=== PATIENT | female | born 1960 | race Caucasian/White ===

== ENCOUNTER 2017-12-08 19:36 | Inpatient (IN) | payer OTHER ==
[~2017-12-08] VITALS: Ht 165.1 cm; Wt 46.0 kg
[~2017-12-08 19:36] MED LIST: ALBU90OI INH; AMIT25 PO; AMIT50 PO; AMOCLA875 PO; Bactrim Ds Tab1 EACH PO; CELE200 PO; CEPH500 PO; CITA20 PO; CLIM.025TP TOP; CYCL10 PO; DIAZ5 PO; DILT120ERA PO; Flomax0.4 MG PO; GABA300 PO; HYDACE10B; HYDACE10B PO; HYDACE5 PO; HYDR1TAB94 PO; IBUP400 PO; IBUP600 PO; IBUP800; LEVLIO1; LIDO700A20 TOP; METPRE4DP PO; NAPR500EC PO; NITR100 PO; Norco 10-325 T1 EACH PO; Norco 5-325 Ta1 EACH PO; ONDA8 PO; OXYACE5T PO; OXYB5 PO; OXYC10TA19; OXYC5 PO; PANT40 PO; PENVK250 PO; PROM25 PO; PYRIDIUM PO; Percocet 10-321 EACH PO; Percocet 5-3251 EACH PO; Prednisone20 MG PO; Pyridium200 MG PO; RXHYDACE PO; Robaxin500 MG PO; TAMS.4ER; TAMS.4ER PO; THYR60 PO; TOBDEXOPSU OS; TRAM50 PO; Ultram50 MG PO; Valium5 MG PO; Zithromax250 MG PO
[2017-12-08 20:33] LABS: BASOPHILS ABSOLUTE AUTO 0.04 K/mm3 (0.00-0.23); BASOPHILS PERCENT AUTO 0 % (0-2); EOSINOPHILS ABSOLUTE AUTO 0.03 K/mm3 (0.00-0.68); EOSINOPHILS PERCENT AUTO 0 % (0-6); Hematocrit 33.8 % (33.0-51.0); Hemoglobin 11.2 g/dL (11.5-16.0); IMMATURE GRAN PERCENT AUTO 0 % (0-1); LYMPHOCYTES ABSOLUTE AUTO 3.22 K/mm3 (0.84-5.20); LYMPHOCYTES PERCENT AUTO 13 % (21-46); MONOCYTES PERCENT AUTO 8 % (4-13); Mean Corpuscular HGB 31.7 pg (26.0-34.0); Mean Corpuscular HGB Conc 33.1 g/dL (31.5-36.5); Mean Corpuscular Volume 96 fL (80-100); Mean Platelet Volume 8.7 fL (9.1-12.4); NEUTROPHILS ABSOLUTE AUTO 18.66 K/mm3 (1.96-9.15); NEUTROPHILS PERCENT AUTO 78 % (41-73); Platelet Count 482 K/mm3 (150-400); RDW Coefficient Variation 13.2 % (11.7-14.2); Red Blood Cell Count 3.53 M/mm3 (3.80-5.20); White Blood Cell Count 24.05 K/mm3 (4.00-11.30)
[2017-12-08 20:54] LABS: Alanine Aminotransfer (ALT/SGP 17 U/L (12-78); Albumin, Blood 2.6 g/dL (3.4-5.0); Albumin/Globulin Ratio 0.5 (0.8-1.8); Alk Phos 123 U/L (50-136); Anion Gap 13 mmol/L (6-16); Aspartate Aminotrans (AST/SGOT 38 U/L (12-37); Bilirubin, Total 0.3 mg/dL (0.1-1.0); Blood Urea Nitrogen 8 mg/dL (8-24); Bun/Creatinine Ratio 16.6 (12.0-20.0); CO2, Blood 23 mmol/L (21-32); Calcium, Blood 8.7 mg/dL (8.5-10.1); Chloride, Blood 104 mmol/L (98-108); Creatinine, Blood 0.48 mg/dL (0.40-1.00); Globulin, Blood 4.9 g/dL (2.2-4.0); Glomerular Filtration Rate >60 (60-); Glucose, Blood 89 mg/dL (70-99); Sodium, Blood 140 mmol/L (136-145); Total Protein, Blood 7.5 g/dL (6.4-8.2); Troponin I <0.015 ng/mL (0.000-0.040)
[2017-12-09 01:05] LABS: Influenza A Negative (NEGATIVE); Influenza B Negative (NEGATIVE)
[2017-12-09 02:27] LABS: Bilirubin, Urine Neg (Neg); Blood, Urine 5+ (Neg); Glucose Qualitative, Urine Neg (Neg); Ketones, Urine Neg (Neg); Leukocyte Esterase, Urine Neg (Neg); Nitrite, Urine Neg (Neg); Protein, Urine Neg (Neg); Source, Urine Clean Catch; Urobilinogen, Urine NORM (Normal)
[2017-12-09 02:47] LABS: Appearance, Urine Clear (Clear); Bacteria Many /hpf; Color, Urine Yellow (P-Yellow); Red Blood Cells, Urine 0-2 /hpf (0-2); Squamous Epithelial Cells Mod /hpf (Few)
[2017-12-09 02:50] LABS: U Amphetamine Screen Not Detected; U Barbituate Screen Not Detected; U Benzodiazapine Screen Not Detected; U Buprenorphine Screen Not Detected; U Cannabinoids Screen Not Detected; U Cocaine Screen Not Detected; U Methadone Screen Not Detected; U Methamphetamine Screen Not Detected; U Opiates Screen Not Detected; U Oxycodone Screen Not Detected; U Phencyclidine Screen Not Detected; U Propoxyphene Screen Not Detected
[2017-12-09 09:33] LABS: BASOPHILS ABSOLUTE AUTO 0.04 K/mm3 (0.00-0.23); BASOPHILS PERCENT AUTO 0 % (0-2); EOSINOPHILS ABSOLUTE AUTO 0.01 K/mm3 (0.00-0.68); EOSINOPHILS PERCENT AUTO 0 % (0-6); Hematocrit 32.5 % (33.0-51.0); Hemoglobin 10.4 g/dL (11.5-16.0); IMMATURE GRAN ABSOLUTE AUTO 0.08 K/mm3 (0.00-0.10); IMMATURE GRAN PERCENT AUTO 0 % (0-1); LYMPHOCYTES ABSOLUTE AUTO 1.29 K/mm3 (0.84-5.20); LYMPHOCYTES PERCENT AUTO 5 % (21-46); MONOCYTES ABSOLUTE AUTO 1.43 K/mm3 (0.16-1.47); MONOCYTES PERCENT AUTO 6 % (4-13); Mean Corpuscular HGB 31.4 pg (26.0-34.0); Mean Corpuscular Volume 98 fL (80-100); Mean Platelet Volume 8.7 fL (9.1-12.4); NEUTROPHILS PERCENT AUTO 89 % (41-73); Platelet Count 419 K/mm3 (150-400); RDW Coefficient Variation 13.3 % (11.7-14.2); RDW Standard Deviation 47.3 fL (35.1-46.3); Red Blood Cell Count 3.31 M/mm3 (3.80-5.20); White Blood Cell Count 24.85 K/mm3 (4.00-11.30)
[2017-12-09 09:52] LABS: Alanine Aminotransfer (ALT/SGP 11 U/L (12-78); Albumin, Blood 2.2 g/dL (3.4-5.0); Albumin/Globulin Ratio 0.5 (0.8-1.8); Alk Phos 115 U/L (50-136); Anion Gap 13 mmol/L (6-16); Aspartate Aminotrans (AST/SGOT 30 U/L (12-37); Bilirubin, Total 0.5 mg/dL (0.1-1.0); Blood Urea Nitrogen 9 mg/dL (8-24); Bun/Creatinine Ratio 20.5 (12.0-20.0); CO2, Blood 19 mmol/L (21-32); Calcium, Blood 7.8 mg/dL (8.5-10.1); Chloride, Blood 110 mmol/L (98-108); Creatinine, Blood 0.44 mg/dL (0.40-1.00); Globulin, Blood 4.3 g/dL (2.2-4.0); Glomerular Filtration Rate >60 (60-); Glucose, Blood 96 mg/dL (70-99); Potassium, Blood 3.3 mmol/L (3.5-5.5); Sodium, Blood 142 mmol/L (136-145); Total Protein, Blood 6.5 g/dL (6.4-8.2)
[2017-12-09 10:27] LABS: Magnesium, Blood 1.4 mg/dL (1.6-2.4)
[2017-12-10 08:36] LABS: BASOPHILS ABSOLUTE AUTO 0.06 K/mm3 (0.00-0.23); BASOPHILS PERCENT AUTO 0 % (0-2); EOSINOPHILS ABSOLUTE AUTO 0.12 K/mm3 (0.00-0.68); EOSINOPHILS PERCENT AUTO 1 % (0-6); Hematocrit 34.6 % (33.0-51.0); Hemoglobin 11.3 g/dL (11.5-16.0); IMMATURE GRAN ABSOLUTE AUTO 0.07 K/mm3 (0.00-0.10); IMMATURE GRAN PERCENT AUTO 0 % (0-1); LYMPHOCYTES ABSOLUTE AUTO 2.26 K/mm3 (0.84-5.20); LYMPHOCYTES PERCENT AUTO 14 % (21-46); MONOCYTES ABSOLUTE AUTO 1.24 K/mm3 (0.16-1.47); MONOCYTES PERCENT AUTO 8 % (4-13); Mean Corpuscular HGB 31.7 pg (26.0-34.0); Mean Corpuscular HGB Conc 32.7 g/dL (31.5-36.5); Mean Corpuscular Volume 97 fL (80-100); Mean Platelet Volume 8.9 fL (9.1-12.4); NEUTROPHILS ABSOLUTE AUTO 12.46 K/mm3 (1.96-9.15); NEUTROPHILS PERCENT AUTO 77 % (41-73); Platelet Count 456 K/mm3 (150-400); RDW Coefficient Variation 12.7 % (11.7-14.2); RDW Standard Deviation 44.3 fL (35.1-46.3); Red Blood Cell Count 3.57 M/mm3 (3.80-5.20); White Blood Cell Count 16.21 K/mm3 (4.00-11.30)
[2017-12-10 09:25] LABS: Albumin, Blood 2.1 g/dL (3.4-5.0); Anion Gap 8 mmol/L (6-16); Blood Urea Nitrogen 10 mg/dL (8-24); Bun/Creatinine Ratio 20.8 (12.0-20.0); CO2, Blood 24 mmol/L (21-32); Calcium, Blood 8.3 mg/dL (8.5-10.1); Chloride, Blood 107 mmol/L (98-108); Creatinine, Blood 0.48 mg/dL (0.40-1.00); Glomerular Filtration Rate >60 (60-); Glucose, Blood 104 mg/dL (70-99); Magnesium, Blood 1.6 mg/dL (1.6-2.4); Phosphorus, Blood 2.3 mg/dL (2.5-4.9); Potassium, Blood 3.7 mmol/L (3.5-5.5); Sodium, Blood 139 mmol/L (136-145)
[2017-12-11 12:35] LABS: BASOPHILS ABSOLUTE AUTO 0.05 K/mm3 (0.00-0.23); BASOPHILS PERCENT AUTO 1 % (0-2); EOSINOPHILS ABSOLUTE AUTO 0.14 K/mm3 (0.00-0.68); EOSINOPHILS PERCENT AUTO 1 % (0-6); Hematocrit 35.1 % (33.0-51.0); Hemoglobin 11.4 g/dL (11.5-16.0); IMMATURE GRAN ABSOLUTE AUTO 0.08 K/mm3 (0.00-0.10); IMMATURE GRAN PERCENT AUTO 1 % (0-1); LYMPHOCYTES ABSOLUTE AUTO 1.68 K/mm3 (0.84-5.20); LYMPHOCYTES PERCENT AUTO 15 % (21-46); MONOCYTES ABSOLUTE AUTO 1.12 K/mm3 (0.16-1.47); MONOCYTES PERCENT AUTO 10 % (4-13); Mean Corpuscular HGB 31.3 pg (26.0-34.0); Mean Corpuscular HGB Conc 32.5 g/dL (31.5-36.5); Mean Corpuscular Volume 96 fL (80-100); NEUTROPHILS ABSOLUTE AUTO 7.83 K/mm3 (1.96-9.15); NEUTROPHILS PERCENT AUTO 72 % (41-73); Platelet Count 502 K/mm3 (150-400); RDW Coefficient Variation 12.8 % (11.7-14.2); RDW Standard Deviation 45.1 fL (35.1-46.3); Red Blood Cell Count 3.64 M/mm3 (3.80-5.20)
[2017-12-11 13:50] LABS: Albumin, Blood 2.1 g/dL (3.4-5.0); Anion Gap 7 mmol/L (6-16); Blood Urea Nitrogen 13 mg/dL (8-24); CO2, Blood 27 mmol/L (21-32); Calcium, Blood 8.9 mg/dL (8.5-10.1); Chloride, Blood 105 mmol/L (98-108); Creatinine, Blood 0.52 mg/dL (0.40-1.00); Glomerular Filtration Rate >60 (60-); Glucose, Blood 94 mg/dL (70-99); Magnesium, Blood 1.7 mg/dL (1.6-2.4); Phosphorus, Blood 3.3 mg/dL (2.5-4.9); Potassium, Blood 4.4 mmol/L (3.5-5.5); Sodium, Blood 139 mmol/L (136-145)
[2017-12-12 05:03] LABS: BASOPHILS ABSOLUTE AUTO 0.07 K/mm3 (0.00-0.23); BASOPHILS PERCENT AUTO 1 % (0-2); EOSINOPHILS ABSOLUTE AUTO 0.16 K/mm3 (0.00-0.68); EOSINOPHILS PERCENT AUTO 2 % (0-6); Hematocrit 30.6 % (33.0-51.0); Hemoglobin 9.8 g/dL (11.5-16.0); IMMATURE GRAN PERCENT AUTO 1 % (0-1); LYMPHOCYTES ABSOLUTE AUTO 1.75 K/mm3 (0.84-5.20); LYMPHOCYTES PERCENT AUTO 22 % (21-46); MONOCYTES ABSOLUTE AUTO 1.06 K/mm3 (0.16-1.47); MONOCYTES PERCENT AUTO 13 % (4-13); Mean Corpuscular HGB 30.7 pg (26.0-34.0); Mean Corpuscular Volume 96 fL (80-100); NEUTROPHILS ABSOLUTE AUTO 4.78 K/mm3 (1.96-9.15); NEUTROPHILS PERCENT AUTO 60 % (41-73); Platelet Count 476 K/mm3 (150-400); RDW Coefficient Variation 12.6 % (11.7-14.2); RDW Standard Deviation 44.2 fL (35.1-46.3); Red Blood Cell Count 3.19 M/mm3 (3.80-5.20); White Blood Cell Count 7.92 K/mm3 (4.00-11.30)
[2017-12-12 05:25] LABS: Anion Gap 6 mmol/L (6-16); Blood Urea Nitrogen 17 mg/dL (8-24); Bun/Creatinine Ratio 24.1 (12.0-20.0); CO2, Blood 30 mmol/L (21-32); Calcium, Blood 8.8 mg/dL (8.5-10.1); Chloride, Blood 100 mmol/L (98-108); Glomerular Filtration Rate >60 (60-); Glucose, Blood 115 mg/dL (70-99); Phosphorus, Blood 4.6 mg/dL (2.5-4.9); Potassium, Blood 4.7 mmol/L (3.5-5.5); Sodium, Blood 136 mmol/L (136-145)
[2017-12-13 12:09] LABS: Source, Urine Voided
[2017-12-13 12:36] LABS: Bilirubin, Urine Neg (Neg); Blood, Urine 1+ (Neg); Glucose Qualitative, Urine Neg (Neg); Ketones, Urine Neg (Neg); Leukocyte Esterase, Urine Neg (Neg); Nitrite, Urine Neg (Neg); Protein, Urine Neg (Neg); Urobilinogen, Urine NORM (Normal); pH, Urine 6.5 (5.0-8.0)
[2017-12-13 12:55] LABS: Appearance, Urine Clear (Clear); Color, Urine Pale Yellow (P-Yellow)
[2017-12-13 12:57] LABS: Bacteria Rare /hpf; Red Blood Cells, Urine 0-2 /hpf (0-2); Squamous Epithelial Cells Rare /hpf (Few); White Blood Cells, Urine 0-2 /hpf (0-5)
[2017-12-16 05:26] LABS: Hematocrit 29.7 % (33.0-51.0); Hemoglobin 9.6 g/dL (11.5-16.0); Mean Corpuscular HGB 31.1 pg (26.0-34.0); Mean Corpuscular HGB Conc 32.3 g/dL (31.5-36.5); Mean Corpuscular Volume 96 fL (80-100); Mean Platelet Volume 9.4 fL (9.1-12.4); Platelet Count 592 K/mm3 (150-400); RDW Coefficient Variation 12.3 % (11.7-14.2); Red Blood Cell Count 3.09 M/mm3 (3.80-5.20); White Blood Cell Count 6.89 K/mm3 (4.00-11.30)
[2017-12-16 05:40] LABS: Anion Gap 5 mmol/L (6-16); Blood Urea Nitrogen 30 mg/dL (8-24); Bun/Creatinine Ratio 58.5 (12.0-20.0); CO2, Blood 30 mmol/L (21-32); Calcium, Blood 8.6 mg/dL (8.5-10.1); Chloride, Blood 104 mmol/L (98-108); Creatinine, Blood 0.51 mg/dL (0.40-1.00); Glomerular Filtration Rate >60 (60-); Glucose, Blood 105 mg/dL (70-99); Potassium, Blood 3.8 mmol/L (3.5-5.5); Sodium, Blood 139 mmol/L (136-145)
[2017-12-16] MEDS ORDERED: ACET325 PO (11:26)
[2017-12-16] MEDS ORDERED: ALBU90OI6 INH (11:29)
[2017-12-16] MEDS ORDERED: TUSSIN DM COUG PO (11:36)
[2017-12-16] MEDS ORDERED: Senna Plus Tab1 EACH PO (11:38)
[2017-12-16] MEDS ORDERED: Acidophilus La1 EACH PO (11:40)
[2017-12-16] MEDS ORDERED: OXYCODONE HCL E10 MG PO (11:49)
[2017-12-16] MEDS ORDERED: Metamucil Smooth1 EA PO (11:50)
[2017-12-16] MEDS ORDERED: DELTASONE20 MG PO (11:52)
[2017-12-16] MEDS ORDERED: Augmentin 875-1 EACH PO (11:54)
[2018-09-05] MEDS ORDERED: Percocet 5-3251 EACH PO (17:34)
[2018-09-06] MEDS ORDERED: Mobic7.5 MG PO (13:07)
[2018-09-07] MEDS ORDERED: Keflex500 MG PO (16:11)
[2018-09-16] MEDS ORDERED: Bactrim Ds Tab1 EACH PO (05:01)
[2018-10-03] MEDS ORDERED: PROM25 PO (13:01)
[2018-10-08] MEDS ORDERED: CLIN300 PO (20:54)
[2018-10-14] MEDS ORDERED: CEFTR1PB IV (13:53)
[2018-11-07] MEDS ORDERED: PROM25 PO (17:34)
== END 2017-12-16 14:24 | disposition home or self-care (01) | DRG 871 ==
LOC: ER 19:36 → MEDS 23:55 → ENPENDDIS 12-16 10:00 → MEDS 12-16 14:24
PROVIDERS: Emergency Medicine; Internal Medicine; Physician Assistant
DX: A41.9 Sepsis, unspecified organism (principal); J14 Pneumonia due to Hemophilus influenzae; J45.909 Unspecified asthma, uncomplicated; I10 Essential (primary) hypertension; E87.6 Hypokalemia; E83.42 Hypomagnesemia; Z88.8 Allergy status to other drugs, medicaments and biological substances
CPT/HCPCS: 36415; 71046; 80048; 80053; 80069; 81001; 83605; 83735; 84100; 84145; 84484; 85025; 85027; 87040; 87070; 87077; 87086; 87185; 87205; 87804; 93005; 93010; 94640; 94667; 94760; 96365; 96375; 99285; J0456; J0696; J0780; J1650; J2405; J3010; J3475; J3480; J7030; J7050; Q0163

== ENCOUNTER 2018-01-05 20:26 | Emergency (ER) | payer OTHER ==
[~2018-01-05] VITALS: Ht 165.1 cm; Wt 39.9 kg
[~2018-01-05 20:26] MED LIST changes: +ACET325 PO; +ALBU90OI6 INH; +Acidophilus La1 EACH PO; +Augmentin 875-1 EACH PO; +DELTASONE20 MG PO; +Metamucil Smooth1 EA PO; +OXYCODONE HCL E10 MG PO; +Senna Plus Tab1 EACH PO; +TUSSIN DM COUG PO
[2018-01-05] MEDS ORDERED: BENADRYL25 MG PO (21:12)
[2018-09-05] MEDS ORDERED: Percocet 5-3251 EACH PO (17:34)
[2018-09-06] MEDS ORDERED: Mobic7.5 MG PO (13:07)
[2018-09-07] MEDS ORDERED: Keflex500 MG PO (16:11)
[2018-09-16] MEDS ORDERED: Bactrim Ds Tab1 EACH PO (05:01)
[2018-10-03] MEDS ORDERED: PROM25 PO (13:01)
[2018-10-08] MEDS ORDERED: CLIN300 PO (20:54)
[2018-10-14] MEDS ORDERED: CEFTR1PB IV (13:53)
[2018-11-07] MEDS ORDERED: PROM25 PO (17:34)
== END 2018-01-05 21:18 | disposition home or self-care (01) ==
LOC: ER 20:26
DX: L29.9 Pruritus, unspecified (principal); Z88.8 Allergy status to other drugs, medicaments and biological substances; Z88.5 Allergy status to narcotic agent; Z88.1 Allergy status to other antibiotic agents; Z79.899 Other long term (current) drug therapy; Z87.442 Personal history of urinary calculi
CPT/HCPCS: 99282; Q0163

== ENCOUNTER 2018-01-09 03:35 | Emergency (ER) | payer OTHER ==
[~2018-01-09] VITALS: Ht 165.1 cm; Wt 39.9 kg
[~2018-01-09 03:35] MED LIST changes: +BENADRYL25 MG PO
[2018-01-09] MEDS ORDERED: Prednisone20 MG PO (05:33)
[2018-09-05] MEDS ORDERED: Percocet 5-3251 EACH PO (17:34)
[2018-09-06] MEDS ORDERED: Mobic7.5 MG PO (13:07)
[2018-09-07] MEDS ORDERED: Keflex500 MG PO (16:11)
[2018-09-16] MEDS ORDERED: Bactrim Ds Tab1 EACH PO (05:01)
[2018-10-03] MEDS ORDERED: PROM25 PO (13:01)
[2018-10-08] MEDS ORDERED: CLIN300 PO (20:54)
[2018-10-14] MEDS ORDERED: CEFTR1PB IV (13:53)
[2018-11-07] MEDS ORDERED: PROM25 PO (17:34)
== END 2018-01-09 06:15 | disposition home or self-care (01) ==
LOC: ER 03:35
DX: L50.9 Urticaria, unspecified (principal); R07.9 Chest pain, unspecified; Z59.0 Homelessness; Z88.8 Allergy status to other drugs, medicaments and biological substances; Z88.6 Allergy status to analgesic agent; Z88.1 Allergy status to other antibiotic agents; Z79.899 Other long term (current) drug therapy; Z87.442 Personal history of urinary calculi
CPT/HCPCS: 93005; 93010; 99283

== ENCOUNTER 2018-02-13 23:55 | Emergency (ER) | payer OTHER ==
[~2018-02-13] VITALS: Ht 157.5 cm; Wt 49.9 kg
[2018-02-14] MEDS ORDERED: CEPH500 PO (01:14)
[2018-09-05] MEDS ORDERED: Percocet 5-3251 EACH PO (17:34)
[2018-09-06] MEDS ORDERED: Mobic7.5 MG PO (13:07)
[2018-09-07] MEDS ORDERED: Keflex500 MG PO (16:11)
[2018-09-16] MEDS ORDERED: Bactrim Ds Tab1 EACH PO (05:01)
[2018-10-03] MEDS ORDERED: PROM25 PO (13:01)
[2018-10-08] MEDS ORDERED: CLIN300 PO (20:54)
[2018-10-14] MEDS ORDERED: CEFTR1PB IV (13:53)
[2018-11-07] MEDS ORDERED: PROM25 PO (17:34)
== END 2018-02-14 01:30 | disposition home or self-care (01) ==
LOC: ER 23:55
DX: J18.9 Pneumonia, unspecified organism (principal); M79.1 Myalgia; Z88.1 Allergy status to other antibiotic agents; Z88.8 Allergy status to other drugs, medicaments and biological substances; Z79.899 Other long term (current) drug therapy; Z87.442 Personal history of urinary calculi; Z87.440 Personal history of urinary (tract) infections
CPT/HCPCS: 71046; 94640; 99283

== ENCOUNTER 2018-08-28 14:07 | Inpatient (IN) | payer OTHER ==
[~2018-08-28] VITALS: Ht 165.1 cm; Wt 46.7 kg
[2018-08-28 15:25] LABS: BASOPHILS ABSOLUTE AUTO 0.09 K/mm3 (0.00-0.23); BASOPHILS PERCENT AUTO 2 % (0-2); EOSINOPHILS ABSOLUTE AUTO 0.13 K/mm3 (0.00-0.68); EOSINOPHILS PERCENT AUTO 3 % (0-6); Hematocrit 36.6 % (33.0-51.0); Hemoglobin 11.8 g/dL (11.5-16.0); IMMATURE GRAN ABSOLUTE AUTO 0.01 K/mm3 (0.00-0.10); IMMATURE GRAN PERCENT AUTO 0 % (0-1); LYMPHOCYTES ABSOLUTE AUTO 1.44 K/mm3 (0.84-5.20); LYMPHOCYTES PERCENT AUTO 30 % (21-46); MONOCYTES ABSOLUTE AUTO 0.39 K/mm3 (0.16-1.47); MONOCYTES PERCENT AUTO 8 % (4-13); Mean Corpuscular HGB 34.7 pg (26.0-34.0); Mean Corpuscular HGB Conc 32.2 g/dL (31.5-36.5); Mean Corpuscular Volume 108 fL (80-100); NEUTROPHILS ABSOLUTE AUTO 2.69 K/mm3 (1.96-9.15); NEUTROPHILS PERCENT AUTO 57 % (41-73); RDW Coefficient Variation 15.2 % (11.7-14.2); RDW Standard Deviation 60.8 fL (35.1-46.3); White Blood Cell Count 4.75 K/mm3 (4.00-11.30)
[2018-08-28 15:26] LABS: Mean Platelet Volume 9.4 fL (9.1-12.4); Platelet Count 253 K/mm3 (150-400)
[2018-08-28 15:45] LABS: Alanine Aminotransfer (ALT/SGP 33 U/L (12-78); Albumin, Blood 3.7 g/dL (3.4-5.0); Albumin/Globulin Ratio 0.9 (0.8-1.8); Alk Phos 120 U/L (50-136); Anion Gap 20 mmol/L (6-16); Aspartate Aminotrans (AST/SGOT 127 U/L (12-37); Bilirubin, Total 0.5 mg/dL (0.1-1.0); Blood Urea Nitrogen 8 mg/dL (8-24); Bun/Creatinine Ratio 16.3 (12.0-20.0); CO2, Blood 17 mmol/L (21-32); Calcium, Blood 7.7 mg/dL (8.5-10.1); Chloride, Blood 100 mmol/L (98-108); Creatinine, Blood 0.49 mg/dL (0.40-1.00); Globulin, Blood 4.1 g/dL (2.2-4.0); Glomerular Filtration Rate >60 (60-); Glucose, Blood 51 mg/dL (70-99); Potassium, Blood 4.6 mmol/L (3.5-5.5); Sodium, Blood 137 mmol/L (136-145); Total Protein, Blood 7.8 g/dL (6.4-8.2)
[2018-08-28 16:09] LABS: Ethanol (Alcohol), Blood, Med 349 mg/dL
[2018-08-29 01:43] LABS: Source, Urine Voided
[2018-08-29 01:47] LABS: Appearance, Urine Clear (Clear); Bilirubin, Urine Neg (Neg); Blood, Urine 1+ (Neg); Color, Urine Yellow (P-Yellow); Glucose Qualitative, Urine Neg (Neg); Ketones, Urine 3+ (Neg); Leukocyte Esterase, Urine Neg (Neg); Nitrite, Urine Neg (Neg); Protein, Urine 2+ (Neg); Urobilinogen, Urine NORM (Normal)
[2018-08-29 02:14] LABS: Bacteria Rare /hpf; Red Blood Cells, Urine Rare /hpf (0-2); Squamous Epithelial Cells Few /hpf (Few); White Blood Cells, Urine 0-2 /hpf (0-5)
[2018-08-29 05:33] LABS: BASOPHILS ABSOLUTE AUTO 0.06 K/mm3 (0.00-0.23); BASOPHILS PERCENT AUTO 1 % (0-2); EOSINOPHILS ABSOLUTE AUTO 0.24 K/mm3 (0.00-0.68); EOSINOPHILS PERCENT AUTO 5 % (0-6); Hematocrit 31.9 % (33.0-51.0); Hemoglobin 10.2 g/dL (11.5-16.0); IMMATURE GRAN ABSOLUTE AUTO 0.02 K/mm3 (0.00-0.10); IMMATURE GRAN PERCENT AUTO 0 % (0-1); LYMPHOCYTES ABSOLUTE AUTO 1.16 K/mm3 (0.84-5.20); LYMPHOCYTES PERCENT AUTO 26 % (21-46); MONOCYTES ABSOLUTE AUTO 0.28 K/mm3 (0.16-1.47); MONOCYTES PERCENT AUTO 6 % (4-13); Mean Corpuscular HGB 34.2 pg (26.0-34.0); Mean Corpuscular Volume 107 fL (80-100); NEUTROPHILS ABSOLUTE AUTO 2.75 K/mm3 (1.96-9.15); NEUTROPHILS PERCENT AUTO 61 % (41-73); Platelet Count 182 K/mm3 (150-400); RDW Coefficient Variation 14.8 % (11.7-14.2); Red Blood Cell Count 2.98 M/mm3 (3.80-5.20); White Blood Cell Count 4.51 K/mm3 (4.00-11.30)
[2018-08-29 06:00] LABS: Magnesium, Blood 1.9 mg/dL (1.6-2.4)
[2018-08-29 06:13] LABS: Alanine Aminotransfer (ALT/SGP 27 U/L (12-78); Albumin/Globulin Ratio 0.9 (0.8-1.8); Alk Phos 98 U/L (50-136); Anion Gap 13 mmol/L (6-16); Aspartate Aminotrans (AST/SGOT 94 U/L (12-37); Bilirubin, Total 1.1 mg/dL (0.1-1.0); Blood Urea Nitrogen 5 mg/dL (8-24); Bun/Creatinine Ratio 10.5 (12.0-20.0); CO2, Blood 21 mmol/L (21-32); Calcium, Blood 6.4 mg/dL (8.5-10.1); Chloride, Blood 105 mmol/L (98-108); Creatinine, Blood 0.47 mg/dL (0.40-1.00); Globulin, Blood 3.2 g/dL (2.2-4.0); Glomerular Filtration Rate >60 (60-); Glucose, Blood 63 mg/dL (70-99); Potassium, Blood 3.8 mmol/L (3.5-5.5); Sodium, Blood 139 mmol/L (136-145); Total Protein, Blood 6.2 g/dL (6.4-8.2)
[2018-08-30 05:17] LABS: BASOPHILS ABSOLUTE AUTO 0.04 K/mm3 (0.00-0.23); BASOPHILS PERCENT AUTO 2 % (0-2); EOSINOPHILS ABSOLUTE AUTO 0.29 K/mm3 (0.00-0.68); EOSINOPHILS PERCENT AUTO 11 % (0-6); Hematocrit 32.3 % (33.0-51.0); Hemoglobin 10.5 g/dL (11.5-16.0); IMMATURE GRAN ABSOLUTE AUTO 0.01 K/mm3 (0.00-0.10); IMMATURE GRAN PERCENT AUTO 0 % (0-1); LYMPHOCYTES ABSOLUTE AUTO 1.15 K/mm3 (0.84-5.20); LYMPHOCYTES PERCENT AUTO 45 % (21-46); MONOCYTES ABSOLUTE AUTO 0.21 K/mm3 (0.16-1.47); MONOCYTES PERCENT AUTO 8 % (4-13); Mean Corpuscular HGB 35.5 pg (26.0-34.0); Mean Corpuscular HGB Conc 32.5 g/dL (31.5-36.5); Mean Corpuscular Volume 109 fL (80-100); Mean Platelet Volume 9.5 fL (9.1-12.4); NEUTROPHILS ABSOLUTE AUTO 0.87 K/mm3 (1.96-9.15); NEUTROPHILS PERCENT AUTO 34 % (41-73); Platelet Count 165 K/mm3 (150-400); RDW Coefficient Variation 14.2 % (11.7-14.2); RDW Standard Deviation 57.1 fL (35.1-46.3); Red Blood Cell Count 2.96 M/mm3 (3.80-5.20); White Blood Cell Count 2.57 K/mm3 (4.00-11.30)
[2018-08-30 05:40] LABS: Alanine Aminotransfer (ALT/SGP 22 U/L (12-78); Albumin, Blood 2.7 g/dL (3.4-5.0); Albumin/Globulin Ratio 0.9 (0.8-1.8); Alk Phos 89 U/L (50-136); Anion Gap 8 mmol/L (6-16); Aspartate Aminotrans (AST/SGOT 57 U/L (12-37); Blood Urea Nitrogen 8 mg/dL (8-24); CO2, Blood 27 mmol/L (21-32); Calcium, Blood 7.3 mg/dL (8.5-10.1); Chloride, Blood 107 mmol/L (98-108); Creatinine, Blood 0.42 mg/dL (0.40-1.00); Glomerular Filtration Rate >60 (60-); Glucose, Blood 93 mg/dL (70-99); Potassium, Blood 3.8 mmol/L (3.5-5.5); Sodium, Blood 142 mmol/L (136-145); Total Protein, Blood 5.7 g/dL (6.4-8.2)
[2018-08-30] MEDS ORDERED: PANT40 PO (12:29)
[2018-08-30] MEDS ORDERED: THIA100 PO (12:30)
== END 2018-08-30 13:03 | disposition home or self-care (01) | DRG 439 ==
LOC: ER 14:07 → MEDS 17:40 → PCU 18:22 → MEDS 18:29 → PCU 08-29 05:32 → MEDS 08-29 15:34
PROVIDERS: Emergency Medicine; Internal Medicine
DX: K85.20 Alcohol induced acute pancreatitis without necrosis or infection (principal); E87.2 Acidosis; F10.239 Alcohol dependence with withdrawal, unspecified; D64.9 Anemia, unspecified; Z59.0 Homelessness; Z88.8 Allergy status to other drugs, medicaments and biological substances
CPT/HCPCS: 36415; 70450; 74150; 76705; 80053; 81001; 82330; 82947; 83690; 83735; 85025; 93005; 93010; 96361; 96374; 99285-25; C9113; G0480; J1170; J1650; J2060; J3411; J3475; J7030; J7042

== ENCOUNTER 2018-09-27 03:36 | Emergency (ER) | payer OTHER ==
[~2018-09-27] VITALS: Ht 165.1 cm; Wt 45.4 kg
[~2018-09-27 03:36] MED LIST changes: +Keflex500 MG PO; +Mobic7.5 MG PO; +THIA100 PO
== END 2018-09-27 04:38 | disposition home or self-care (01) ==
LOC: ER 03:36
DX: S81.801A Unspecified open wound, right lower leg, initial encounter (principal); F10.10 Alcohol abuse, uncomplicated; Z88.5 Allergy status to narcotic agent; Z88.8 Allergy status to other drugs, medicaments and biological substances; Z79.899 Other long term (current) drug therapy
CPT/HCPCS: 99283

== ENCOUNTER 2018-09-28 14:57 | Emergency (ER) | payer OTHER ==
[~2018-09-28] VITALS: Ht 165.1 cm; Wt 54.4 kg
== END 2018-09-28 15:20 | disposition left against medical advice (07) ==
LOC: ER 14:57
DX: S71.101D Unspecified open wound, right thigh, subsequent encounter (principal); Z88.8 Allergy status to other drugs, medicaments and biological substances; Z88.5 Allergy status to narcotic agent; Z87.442 Personal history of urinary calculi
CPT/HCPCS: 99283

== ENCOUNTER 2018-10-20 00:35 | Day surgery (SDC) | payer OTHER ==
[~2018-10-20 00:35] MED LIST changes: +CEFTR1PB IV; +CLIN300 PO
[2018-11-07] MEDS ORDERED: PROM25 PO (17:34)
== END 2018-10-20 22:47 | disposition home or self-care (01) ==
LOC: ATC 00:35
DX: S71.101D Unspecified open wound, right thigh, subsequent encounter (principal); L03.115 Cellulitis of right lower limb
CPT/HCPCS: 96365; J0696

== ENCOUNTER 2018-11-12 19:43 | Emergency (ER) | payer OTHER ==
[~2018-11-12] VITALS: Ht 160 cm; Wt 54.4 kg
== END 2018-11-12 23:55 | disposition left against medical advice (07) ==
LOC: ER 19:43
DX: Z53.21 Procedure and treatment not carried out due to patient leaving prior to being seen by health care provider (principal)

== ENCOUNTER 2018-11-13 16:41 | Day surgery (SDC) | payer OTHER | END 2018-11-13 22:45 | disposition home or self-care (01) | LOC: WOUND 16:41 | DX: S71.101D Unspecified open wound, right thigh, subsequent encounter (principal); Z59.0 Homelessness | CPT/HCPCS: G0463 ==

== ENCOUNTER 2018-11-20 10:22 | Day surgery (SDC) | payer OTHER | END 2018-11-20 23:03 | disposition home or self-care (01) | LOC: WOUND 10:22 | DX: S71.101D Unspecified open wound, right thigh, subsequent encounter (principal); L03.115 Cellulitis of right lower limb; Z59.0 Homelessness | CPT/HCPCS: G0463 ==

== ENCOUNTER 2018-11-24 12:30 | Day surgery (SDC) | payer OTHER | END 2018-11-24 22:35 | disposition home or self-care (01) | LOC: WOUND 12:30 | DX: S71.101D Unspecified open wound, right thigh, subsequent encounter (principal); L03.115 Cellulitis of right lower limb; Z59.0 Homelessness ==

== ENCOUNTER 2018-12-04 07:56 | Emergency (ER) | payer OTHER ==
[~2018-12-04] VITALS: Ht 160 cm; Wt 45.4 kg
== END 2018-12-04 10:07 | disposition home or self-care (01) ==
LOC: ER 07:56
DX: F10.129 Alcohol abuse with intoxication, unspecified (principal); R27.0 Ataxia, unspecified; Z88.8 Allergy status to other drugs, medicaments and biological substances; Z88.6 Allergy status to analgesic agent; Z79.899 Other long term (current) drug therapy
CPT/HCPCS: 36415; 96361; 96365; 99284-25; J3411; J7120

== ENCOUNTER 2018-12-04 11:27 | Day surgery (SDC) | payer OTHER | END 2018-12-04 22:47 | disposition home or self-care (01) | LOC: WOUND 11:27 | DX: S71.101D Unspecified open wound, right thigh, subsequent encounter (principal); L03.115 Cellulitis of right lower limb; Z59.0 Homelessness | CPT/HCPCS: G0463 ==

== ENCOUNTER 2018-12-13 06:01 | Emergency (ER) | payer OTHER ==
[~2018-12-13] VITALS: Ht 167.6 cm; Wt 59.0 kg
[2018-12-13 08:11] LABS: Source, Urine Clean Catch
[2018-12-13 08:29] LABS: Bilirubin, Urine Neg (Neg); Blood, Urine 2+ (Neg); Glucose Qualitative, Urine Neg (Neg); Ketones, Urine Neg (Neg); Leukocyte Esterase, Urine 3+ (Neg); Nitrite, Urine Neg (Neg); Protein, Urine Neg (Neg); Urobilinogen, Urine NORM (Normal)
[2018-12-13 08:35] LABS: Appearance, Urine Clear (Clear); Color, Urine Yellow (P-Yellow)
[2018-12-13 08:36] LABS: White Blood Cells, Urine TNTC /hpf (0-5)
[2018-12-13 08:38] LABS: Bacteria Few /hpf; Squamous Epithelial Cells Few /hpf (Few); Transitional Epithelial Cells Rare /hpf (0-Rare)
[2018-12-13] MEDS ORDERED: Cipro500 MG PO (08:44)
[2018-12-13] MEDS ORDERED: MELO7.5 PO (08:46)
== END 2018-12-13 09:35 | disposition home or self-care (01) ==
LOC: ER 06:01
PROVIDERS: Physician Assistant
DX: N12 Tubulo-interstitial nephritis, not specified as acute or chronic (principal); M06.9 Rheumatoid arthritis, unspecified
CPT/HCPCS: 76770; 81001; 87077; 87086; 87186; 99284-25

== ENCOUNTER 2018-12-19 20:40 | Emergency (ER) | payer OTHER ==
[~2018-12-19] VITALS: Ht 165.1 cm; Wt 56.7 kg
[~2018-12-19 20:40] MED LIST changes: +Cipro500 MG PO; +MELO7.5 PO
[2018-12-19] MEDS ORDERED: LEVO750 PO (22:52)
[2018-12-19] MEDS ORDERED: Pyridium100 MG PO (22:52)
[2018-12-19] MEDS ORDERED: Mobic7.5 MG PO (22:52)
== END 2018-12-19 23:07 | disposition home or self-care (01) ==
LOC: ER 20:40
DX: N12 Tubulo-interstitial nephritis, not specified as acute or chronic (principal); Z88.8 Allergy status to other drugs, medicaments and biological substances; Z88.6 Allergy status to analgesic agent
CPT/HCPCS: 99283

== ENCOUNTER 2019-01-01 14:59 | Emergency (ER) | payer OTHER ==
[~2019-01-01] VITALS: Ht 160 cm; Wt 49.9 kg
[~2019-01-01 14:59] MED LIST changes: +LEVO750 PO; +Pyridium100 MG PO
[2019-01-02] MEDS ORDERED: ALBU90OI INH (04:18)
== END 2019-01-01 16:32 | disposition left against medical advice (07) ==
LOC: ER 14:59
DX: R07.81 Pleurodynia (principal); R05 Cough; Z88.8 Allergy status to other drugs, medicaments and biological substances; Z88.5 Allergy status to narcotic agent; Z79.899 Other long term (current) drug therapy; Z87.442 Personal history of urinary calculi
CPT/HCPCS: 71046; 99283-25

== ENCOUNTER 2019-01-02 02:09 | Emergency (ER) | payer OTHER ==
[~2019-01-02] VITALS: Ht 165.1 cm; Wt 56.7 kg
[2019-01-02] MEDS ORDERED: ALBU90OI INH (04:18)
== END 2019-01-02 04:25 | disposition home or self-care (01) ==
LOC: ER 02:09
DX: R05 Cough (principal); Z88.8 Allergy status to other drugs, medicaments and biological substances; Z88.6 Allergy status to analgesic agent; Z79.899 Other long term (current) drug therapy
CPT/HCPCS: 71046; 99283-25

== ENCOUNTER 2019-01-02 07:39 | Emergency (ER) | payer OTHER ==
[~2019-01-02] VITALS: Ht 157.5 cm; Wt 45.4 kg
== END 2019-01-02 09:49 | disposition home or self-care (01) ==
LOC: ER 07:39
DX: F10.129 Alcohol abuse with intoxication, unspecified (principal); Z59.0 Homelessness; T69.9XXA Effect of reduced temperature, unspecified, initial encounter; Z88.8 Allergy status to other drugs, medicaments and biological substances
CPT/HCPCS: 99284

== ENCOUNTER 2019-01-15 14:57 | Day surgery (SDC) | payer OTHER | END 2019-01-15 22:37 | disposition home or self-care (01) | LOC: WOUND 14:57 | DX: M79.651 Pain in right thigh (principal); M79.89 Other specified soft tissue disorders; Z59.0 Homelessness; Z87.828 Personal history of other (healed) physical injury and trauma | CPT/HCPCS: G0463 ==

== ENCOUNTER 2019-01-27 02:07 | Emergency (ER) | payer OTHER ==
[~2019-01-27] VITALS: Ht 165.1 cm; Wt 63.5 kg
== END 2019-01-27 02:29 | disposition home or self-care (01) ==
LOC: ER 02:07
DX: F10.129 Alcohol abuse with intoxication, unspecified (principal); Z00.8 Encounter for other general examination; Z88.8 Allergy status to other drugs, medicaments and biological substances; Z88.6 Allergy status to analgesic agent
CPT/HCPCS: 99283

== ENCOUNTER 2019-08-07 14:33 | Emergency (ER) | payer OTHER ==
[~2019-08-07] VITALS: Ht 165.1 cm; Wt 54.4 kg
[2019-08-07 15:38] LABS: Source, Urine Clean Catch
[2019-08-07 15:48] LABS: Bilirubin, Urine Neg (Neg); Blood, Urine 3+ (Neg); Glucose Qualitative, Urine Neg (Neg); Ketones, Urine Neg (Neg); Leukocyte Esterase, Urine 3+ (Neg); Nitrite, Urine Neg (Neg); Protein, Urine 1+ (Neg); Specific Gravity, Urine 1.015 (1.003-1.022); Urobilinogen, Urine NORM (Normal)
[2019-08-07 16:01] LABS: BASOPHILS ABSOLUTE AUTO 0.08 K/mm3 (0.00-0.23); BASOPHILS PERCENT AUTO 2 % (0-2); EOSINOPHILS ABSOLUTE AUTO 0.13 K/mm3 (0.00-0.68); EOSINOPHILS PERCENT AUTO 4 % (0-6); Hematocrit 37.5 % (33.0-51.0); Hemoglobin 12.4 g/dL (11.5-16.0); IMMATURE GRAN PERCENT AUTO 0 % (0-1); LYMPHOCYTES ABSOLUTE AUTO 2.07 K/mm3 (0.84-5.20); LYMPHOCYTES PERCENT AUTO 59 % (21-46); MONOCYTES ABSOLUTE AUTO 0.27 K/mm3 (0.16-1.47); MONOCYTES PERCENT AUTO 8 % (4-13); Mean Corpuscular HGB 33.2 pg (26.0-34.0); Mean Corpuscular HGB Conc 33.1 g/dL (31.5-36.5); Mean Corpuscular Volume 101 fL (80-100); Mean Platelet Volume 9.8 fL (9.1-12.4); NEUTROPHILS ABSOLUTE AUTO 0.95 K/mm3 (1.96-9.15); NEUTROPHILS PERCENT AUTO 27 % (41-73); Platelet Count 112 K/mm3 (150-400); RDW Coefficient Variation 13.2 % (11.7-14.2); RDW Standard Deviation 49.1 fL (35.1-46.3); Red Blood Cell Count 3.73 M/mm3 (3.80-5.20)
[2019-08-07 16:05] LABS: Appearance, Urine Hazy (Clear); Color, Urine Yellow (P-Yellow)
[2019-08-07 16:06] LABS: Bacteria Many /hpf; Squamous Epithelial Cells Few /hpf (Few); White Blood Cells, Urine 25-50 /hpf (0-5)
[2019-08-07 16:31] LABS: Alanine Aminotransfer (ALT/SGP 25 U/L (12-78); Albumin, Blood 3.8 g/dL (3.4-5.0); Alk Phos 105 U/L (50-136); Anion Gap 9 mmol/L (6-16); Aspartate Aminotrans (AST/SGOT 136 U/L (12-37); Bilirubin, Total 0.2 mg/dL (0.1-1.0); Blood Urea Nitrogen 10 mg/dL (8-24); Bun/Creatinine Ratio 18.9 (12.0-20.0); CO2, Blood 23 mmol/L (21-32); Calcium, Blood 8.2 mg/dL (8.5-10.1); Chloride, Blood 109 mmol/L (98-108); Creatinine, Blood 0.53 mg/dL (0.40-1.00); Globulin, Blood 3.8 g/dL (2.2-4.0); Glomerular Filtration Rate >60 (60-); Glucose, Blood 84 mg/dL (70-99); Potassium, Blood 4.1 mmol/L (3.5-5.5); Sodium, Blood 141 mmol/L (136-145); Total Protein, Blood 7.6 g/dL (6.4-8.2)
[2019-08-07] MEDS ORDERED: Keflex500 MG PO (18:23)
== END 2019-08-07 19:19 | disposition home or self-care (01) ==
LOC: ER 14:33
PROVIDERS: Physician Assistant
DX: N39.0 Urinary tract infection, site not specified (principal); Z87.442 Personal history of urinary calculi; Z59.0 Homelessness; Z88.8 Allergy status to other drugs, medicaments and biological substances
CPT/HCPCS: 36415; 80053; 81001; 83690; 85025; 87077; 87086; 87186; 96374; 96375; 99284-25; G0480; J0696; J0780; J1200

== ENCOUNTER 2019-08-22 16:53 | Emergency (ER) | payer OTHER ==
[~2019-08-22] VITALS: Ht 167.6 cm; Wt 56.7 kg
[2019-08-22 18:06] LABS: Source, Urine Voided
[2019-08-22 18:15] LABS: Bilirubin, Urine Neg (Neg); Blood, Urine 4+ (Neg); Glucose Qualitative, Urine Neg (Neg); Ketones, Urine Neg (Neg); Leukocyte Esterase, Urine 2+ (Neg); Nitrite, Urine Neg (Neg); Protein, Urine 1+ (Neg); Specific Gravity, Urine 1.005 (1.003-1.022); Urobilinogen, Urine NORM (Normal)
[2019-08-22 18:29] LABS: U Amphetamine Screen Not Detected; U Barbituate Screen Not Detected; U Benzodiazapine Screen DETECTED; U Buprenorphine Screen Not Detected; U Cannabinoids Screen Not Detected; U Cocaine Screen Not Detected; U Methadone Screen Not Detected; U Methamphetamine Screen Not Detected; U Opiates Screen Not Detected; U Oxycodone Screen Not Detected; U Phencyclidine Screen Not Detected; U Propoxyphene Screen Not Detected
[2019-08-22 18:30] LABS: Appearance, Urine Clear (Clear); Color, Urine Pale Yellow (P-Yellow)
[2019-08-22 18:32] LABS: Bacteria Many /hpf; Red Blood Cells, Urine Not Seen /hpf (0-2); Squamous Epithelial Cells Few /hpf (Few)
[2019-08-22 18:36] LABS: BASOPHILS ABSOLUTE AUTO 0.14 K/mm3 (0.00-0.23); BASOPHILS PERCENT AUTO 2 % (0-2); EOSINOPHILS ABSOLUTE AUTO 0.11 K/mm3 (0.00-0.68); EOSINOPHILS PERCENT AUTO 2 % (0-6); Hemoglobin 11.9 g/dL (11.5-16.0); IMMATURE GRAN ABSOLUTE AUTO 0.01 K/mm3 (0.00-0.10); IMMATURE GRAN PERCENT AUTO 0 % (0-1); LYMPHOCYTES ABSOLUTE AUTO 2.23 K/mm3 (0.84-5.20); LYMPHOCYTES PERCENT AUTO 35 % (21-46); MONOCYTES ABSOLUTE AUTO 0.67 K/mm3 (0.16-1.47); MONOCYTES PERCENT AUTO 11 % (4-13); Mean Corpuscular HGB 33.2 pg (26.0-34.0); Mean Corpuscular HGB Conc 32.2 g/dL (31.5-36.5); Mean Corpuscular Volume 103 fL (80-100); Mean Platelet Volume 9.3 fL (9.1-12.4); NEUTROPHILS ABSOLUTE AUTO 3.18 K/mm3 (1.96-9.15); NEUTROPHILS PERCENT AUTO 50 % (41-73); Platelet Count 423 K/mm3 (150-400); RDW Standard Deviation 49.6 fL (35.1-46.3); Red Blood Cell Count 3.58 M/mm3 (3.80-5.20); White Blood Cell Count 6.34 K/mm3 (4.00-11.30)
[2019-08-22 18:55] LABS: Alanine Aminotransfer (ALT/SGP 13 U/L (12-78); Albumin, Blood 3.4 g/dL (3.4-5.0); Albumin/Globulin Ratio 0.9 (0.8-1.8); Alk Phos 82 U/L (50-136); Anion Gap 7 mmol/L (6-16); Aspartate Aminotrans (AST/SGOT 30 U/L (12-37); Bilirubin, Total 0.1 mg/dL (0.1-1.0); Blood Urea Nitrogen 16 mg/dL (8-24); Bun/Creatinine Ratio 22.1 (12.0-20.0); CO2, Blood 28 mmol/L (21-32); Calcium, Blood 9.2 mg/dL (8.5-10.1); Chloride, Blood 108 mmol/L (98-108); Creatinine, Blood 0.73 mg/dL (0.40-1.00); Ethanol (Alcohol), Blood, Med 294 mg/dL; Globulin, Blood 3.6 g/dL (2.2-4.0); Glomerular Filtration Rate >60 (60-); Glucose, Blood 80 mg/dL (70-99); Potassium, Blood 3.8 mmol/L (3.5-5.5); Sodium, Blood 143 mmol/L (136-145)
== END 2019-08-22 21:53 | disposition home or self-care (01) ==
LOC: ER 16:53
PROVIDERS: Emergency Medicine
DX: S05.41XA Penetrating wound of orbit with or without foreign body, right eye, initial encounter (principal); F10.129 Alcohol abuse with intoxication, unspecified; Y90.8 Blood alcohol level of 240 mg/100 ml or more; X58.XXXA Exposure to other specified factors, initial encounter; Z88.8 Allergy status to other drugs, medicaments and biological substances; Z88.6 Allergy status to analgesic agent; Z87.891 Personal history of nicotine dependence
CPT/HCPCS: 12011; 36415; 70450; 71045; 80053; 81001; 83690; 85025; 87077; 87086; 87147; 87186; 99284-25; G0480

== ENCOUNTER 2019-08-27 12:42 | Day surgery (SDC) | payer OTHER | END 2019-08-27 22:56 | disposition home or self-care (01) | LOC: WOUND 12:42 | DX: S81.802A Unspecified open wound, left lower leg, initial encounter (principal); S91.302A Unspecified open wound, left foot, initial encounter; L03.116 Cellulitis of left lower limb; Z88.8 Allergy status to other drugs, medicaments and biological substances | CPT/HCPCS: G0463 ==

== ENCOUNTER 2019-09-25 15:12 | Emergency (ER) | payer SELFPAY ==
[~2019-09-25] VITALS: Ht 152.4 cm; Wt 58.1 kg
== END 2019-09-25 16:38 | disposition home or self-care (01) ==
LOC: ER 15:12
DX: F10.129 Alcohol abuse with intoxication, unspecified (principal); Y90.8 Blood alcohol level of 240 mg/100 ml or more; Z87.442 Personal history of urinary calculi; Z87.440 Personal history of urinary (tract) infections; Z88.8 Allergy status to other drugs, medicaments and biological substances
CPT/HCPCS: 99284; G0480

== ENCOUNTER 2019-10-13 19:52 | Emergency (ER) | payer OTHER ==
[~2019-10-13] VITALS: Ht 157.5 cm; Wt 49.0 kg
== END 2019-10-13 20:40 | disposition home or self-care (01) ==
LOC: ER 19:52
DX: F10.129 Alcohol abuse with intoxication, unspecified (principal); Z87.442 Personal history of urinary calculi; Z87.440 Personal history of urinary (tract) infections; Z87.891 Personal history of nicotine dependence; Z88.8 Allergy status to other drugs, medicaments and biological substances
CPT/HCPCS: 99284; A9270-GY

== ENCOUNTER 2019-11-09 22:59 | Emergency (ER) | payer OTHER ==
[~2019-11-09] VITALS: Ht 165.1 cm; Wt 47.6 kg
== END 2019-11-10 00:04 | disposition home or self-care (01) ==
LOC: ER 22:59
DX: F10.129 Alcohol abuse with intoxication, unspecified (principal); M06.9 Rheumatoid arthritis, unspecified; M79.10 Myalgia, unspecified site; Z87.442 Personal history of urinary calculi; Z87.440 Personal history of urinary (tract) infections; Z88.8 Allergy status to other drugs, medicaments and biological substances; Z87.891 Personal history of nicotine dependence
CPT/HCPCS: 99283

== ENCOUNTER 2019-12-14 03:12 | Emergency (ER) | payer OTHER ==
[~2019-12-14] VITALS: Ht 165.1 cm; Wt 49.0 kg
== END 2019-12-14 03:55 | disposition home or self-care (01) ==
LOC: ER 03:12
DX: S61.252A Open bite of right middle finger without damage to nail, initial encounter (principal); F10.129 Alcohol abuse with intoxication, unspecified; Z59.0 Homelessness; Z88.8 Allergy status to other drugs, medicaments and biological substances; Z88.5 Allergy status to narcotic agent; Z87.891 Personal history of nicotine dependence; W54.0XXA Bitten by dog, initial encounter
CPT/HCPCS: 99283

== ENCOUNTER 2019-12-23 08:40 | Emergency (ER) | payer OTHER ==
[~2019-12-23] VITALS: Ht 162.6 cm; Wt 68.0 kg
[2019-12-23] MEDS ORDERED: Vistaril25 MG PO (09:02)
== END 2019-12-23 09:12 | disposition home or self-care (01) ==
LOC: ER 08:40
DX: Z00.8 Encounter for other general examination (principal); Z88.8 Allergy status to other drugs, medicaments and biological substances; Z88.5 Allergy status to narcotic agent; Z87.442 Personal history of urinary calculi; Z87.891 Personal history of nicotine dependence
CPT/HCPCS: 99283

== ENCOUNTER 2020-01-17 21:28 | Emergency (ER) | payer OTHER ==
[~2020-01-17 21:28] MED LIST changes: +Vistaril25 MG PO
== END 2020-01-18 | disposition left against medical advice (07) ==
LOC: ER 21:28
DX: Z53.21 Procedure and treatment not carried out due to patient leaving prior to being seen by health care provider (principal)

== ENCOUNTER 2020-01-18 00:16 | Day surgery (SDC) | payer OTHER | END 2020-01-18 23:16 | disposition home or self-care (01) | LOC: WOUND 00:16 | DX: M79.671 Pain in right foot (principal); S01.20XA Unspecified open wound of nose, initial encounter; F41.9 Anxiety disorder, unspecified; F32.9 Major depressive disorder, single episode, unspecified; X58.XXXA Exposure to other specified factors, initial encounter; Z59.0 Homelessness; Z88.6 Allergy status to analgesic agent; Z88.8 Allergy status to other drugs, medicaments and biological substances; Z79.899 Other long term (current) drug therapy | CPT/HCPCS: G0463 ==

== ENCOUNTER 2020-01-25 00:34 | Day surgery (SDC) | payer OTHER | END 2020-01-25 22:47 | disposition home or self-care (01) | LOC: WOUND 00:34 | DX: M79.671 Pain in right foot (principal); S01.20XA Unspecified open wound of nose, initial encounter; F41.9 Anxiety disorder, unspecified; F32.9 Major depressive disorder, single episode, unspecified; Z59.0 Homelessness; X58.XXXA Exposure to other specified factors, initial encounter; Z79.899 Other long term (current) drug therapy | CPT/HCPCS: G0463 ==

== ENCOUNTER 2020-02-01 00:14 | Day surgery (SDC) | payer OTHER | END 2020-02-01 12:00 | disposition home or self-care (01) | LOC: WOUND 00:14 | DX: S91.301D Unspecified open wound, right foot, subsequent encounter (principal); F41.9 Anxiety disorder, unspecified; F32.9 Major depressive disorder, single episode, unspecified; Z59.0 Homelessness | CPT/HCPCS: G0463 ==

== ENCOUNTER 2020-03-09 19:31 | Inpatient (IN) | payer OTHER ==
[~2020-03-09] VITALS: Ht 165.1 cm; Wt 47.7 kg
[2020-03-09 20:20] LABS: BASOPHILS ABSOLUTE AUTO 0.04 K/mm3 (0.00-0.23); BASOPHILS PERCENT AUTO 1 % (0-2); EOSINOPHILS PERCENT AUTO 0 % (0-6); Hematocrit 36.5 % (33.0-51.0); Hemoglobin 11.9 g/dL (11.5-16.0); IMMATURE GRAN ABSOLUTE AUTO 0.01 K/mm3 (0.00-0.10); IMMATURE GRAN PERCENT AUTO 0 % (0-1); LYMPHOCYTES ABSOLUTE AUTO 1.07 K/mm3 (0.84-5.20); LYMPHOCYTES PERCENT AUTO 16 % (21-46); MONOCYTES ABSOLUTE AUTO 0.43 K/mm3 (0.16-1.47); MONOCYTES PERCENT AUTO 7 % (4-13); Mean Corpuscular HGB 30.4 pg (26.0-34.0); Mean Corpuscular HGB Conc 32.6 g/dL (31.5-36.5); Mean Corpuscular Volume 93 fL (80-100); NEUTROPHILS ABSOLUTE AUTO 4.98 K/mm3 (1.96-9.15); NEUTROPHILS PERCENT AUTO 76 % (41-73); Platelet Count 233 K/mm3 (150-400); RDW Coefficient Variation 14.7 % (11.7-14.2); RDW Standard Deviation 51.2 fL (35.1-46.3); Red Blood Cell Count 3.91 M/mm3 (3.80-5.20); White Blood Cell Count 6.53 K/mm3 (4.00-11.30)
[2020-03-09 20:37] LABS: Alanine Aminotransfer (ALT/SGP 24 U/L (12-78); Albumin, Blood 4.1 g/dL (3.4-5.0); Alk Phos 132 U/L (50-136); Anion Gap 13 mmol/L (6-16); Aspartate Aminotrans (AST/SGOT 101 U/L (12-37); Bilirubin, Total 1.4 mg/dL (0.1-1.0); Blood Urea Nitrogen 12 mg/dL (8-24); Bun/Creatinine Ratio 18.2 (12.0-20.0); CO2, Blood 24 mmol/L (21-32); Calcium, Blood 9.9 mg/dL (8.5-10.1); Chloride, Blood 96 mmol/L (98-108); Creatinine, Blood 0.66 mg/dL (0.40-1.00); Ethanol (Alcohol), Blood, Med <3 mg/dL; Globulin, Blood 4.1 g/dL (2.2-4.0); Glomerular Filtration Rate >60 (60-); Glucose, Blood 150 mg/dL (70-99); Potassium, Blood 3.6 mmol/L (3.5-5.5); Sodium, Blood 133 mmol/L (136-145); Total Protein, Blood 8.2 g/dL (6.4-8.2)
[2020-03-09 22:22] LABS: Source, Urine Catheter
[2020-03-09 22:38] LABS: Appearance, Urine Clear (Clear); Bilirubin, Urine Neg (Neg); Blood, Urine 3+ (Neg); Color, Urine Pale Yellow (P-Yellow); Glucose Qualitative, Urine 1+ (Neg); Ketones, Urine Neg (Neg); Leukocyte Esterase, Urine 1+ (Neg); Nitrite, Urine Pos (Neg); Protein, Urine 1+ (Neg); Specific Gravity, Urine 1.015 (1.003-1.022); Urobilinogen, Urine NORM (Normal)
[2020-03-09 22:39] LABS: Bacteria Many /hpf; Red Blood Cells, Urine 0-2 /hpf (0-2); Squamous Epithelial Cells Not Seen /hpf (Few)
[2020-03-09 22:41] LABS: U Amphetamine Screen Not Detected; U Barbituate Screen Not Detected; U Benzodiazapine Screen Not Detected; U Buprenorphine Screen Not Detected; U Cannabinoids Screen Not Detected; U Cocaine Screen Not Detected; U Methadone Screen Not Detected; U Methamphetamine Screen Not Detected; U Opiates Screen Not Detected; U Oxycodone Screen Not Detected; U Phencyclidine Screen Not Detected; U Propoxyphene Screen Not Detected
[2020-03-10 04:42] LABS: BASOPHILS ABSOLUTE AUTO 0.06 K/mm3 (0.00-0.23); BASOPHILS PERCENT AUTO 1 % (0-2); EOSINOPHILS ABSOLUTE AUTO 0.07 K/mm3 (0.00-0.68); EOSINOPHILS PERCENT AUTO 1 % (0-6); Hematocrit 32.4 % (33.0-51.0); Hemoglobin 10.7 g/dL (11.5-16.0); IMMATURE GRAN ABSOLUTE AUTO 0.01 K/mm3 (0.00-0.10); IMMATURE GRAN PERCENT AUTO 0 % (0-1); LYMPHOCYTES ABSOLUTE AUTO 1.95 K/mm3 (0.84-5.20); LYMPHOCYTES PERCENT AUTO 27 % (21-46); MONOCYTES ABSOLUTE AUTO 0.65 K/mm3 (0.16-1.47); MONOCYTES PERCENT AUTO 9 % (4-13); Mean Corpuscular HGB 30.8 pg (26.0-34.0); Mean Corpuscular Volume 93 fL (80-100); Mean Platelet Volume 10.4 fL (9.1-12.4); NEUTROPHILS ABSOLUTE AUTO 4.44 K/mm3 (1.96-9.15); NEUTROPHILS PERCENT AUTO 62 % (41-73); Platelet Count 196 K/mm3 (150-400); RDW Standard Deviation 51.7 fL (35.1-46.3); Red Blood Cell Count 3.47 M/mm3 (3.80-5.20); White Blood Cell Count 7.18 K/mm3 (4.00-11.30)
[2020-03-10 05:04] LABS: Anion Gap 8 mmol/L (6-16); Blood Urea Nitrogen 10 mg/dL (8-24); Bun/Creatinine Ratio 14.8 (12.0-20.0); CO2, Blood 26 mmol/L (21-32); Calcium, Blood 9.5 mg/dL (8.5-10.1); Chloride, Blood 99 mmol/L (98-108); Creatinine, Blood 0.67 mg/dL (0.40-1.00); Glomerular Filtration Rate >60 (60-); Glucose, Blood 79 mg/dL (70-99); Potassium, Blood 3.2 mmol/L (3.5-5.5); Sodium, Blood 133 mmol/L (136-145)
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
--- NOTE | 2020-03-10 18:15 | NUR ---
SHIFT SUMMARY PT HAS BEEN SLEEPING A LOT OF THE DAY. PT IS ALERT AND ORIENTED BUT FORGETFUL AT TIMES. PT HAS A GOOD APPETITE BUT DIFFICULTY EATING DUE TO TEETH. PT HAD ONE EPISODE OF DIARRHEA THIS AFTERNOON BUT NONE SINCE. IVF INFUSING WITHOUT DIFFICULTY. MEDICATED FOR TEETH PAIN X1 THIS SHIFT. NO ACUTE CHANGES. WILL CONTINUE TO MONITOR FOR CHANGES. BED ALARM ON FOR SAFETY. CALL LIGHT IN REACH.
[2020-03-11 04:48] LABS: BASOPHILS ABSOLUTE AUTO 0.03 K/mm3 (0.00-0.23); BASOPHILS PERCENT AUTO 1 % (0-2); EOSINOPHILS PERCENT AUTO 2 % (0-6); Hemoglobin 10.4 g/dL (11.5-16.0); IMMATURE GRAN ABSOLUTE AUTO 0.01 K/mm3 (0.00-0.10); IMMATURE GRAN PERCENT AUTO 0 % (0-1); LYMPHOCYTES PERCENT AUTO 40 % (21-46); MONOCYTES ABSOLUTE AUTO 0.47 K/mm3 (0.16-1.47); MONOCYTES PERCENT AUTO 11 % (4-13); Mean Corpuscular HGB 30.6 pg (26.0-34.0); Mean Corpuscular HGB Conc 31.5 g/dL (31.5-36.5); Mean Platelet Volume 10.6 fL (9.1-12.4); NEUTROPHILS ABSOLUTE AUTO 1.96 K/mm3 (1.96-9.15); NEUTROPHILS PERCENT AUTO 46 % (41-73); Platelet Count 162 K/mm3 (150-400); RDW Coefficient Variation 14.6 % (11.7-14.2); RDW Standard Deviation 52.9 fL (35.1-46.3); White Blood Cell Count 4.27 K/mm3 (4.00-11.30)
[2020-03-11 04:51] LABS: Mean Corpuscular Volume 97 fL (80-100)
[2020-03-11 05:05] LABS: Anion Gap 5 mmol/L (6-16); Blood Urea Nitrogen 19 mg/dL (8-24); Bun/Creatinine Ratio 25.2 (12.0-20.0); CO2, Blood 26 mmol/L (21-32); Calcium, Blood 8.5 mg/dL (8.5-10.1); Chloride, Blood 111 mmol/L (98-108); Creatinine, Blood 0.75 mg/dL (0.40-1.00); Glomerular Filtration Rate >60 (60-); Glucose, Blood 90 mg/dL (70-99); Potassium, Blood 3.5 mmol/L (3.5-5.5); Sodium, Blood 142 mmol/L (136-145)
--- NOTE | 2020-03-11 06:04 | NUR ---
SHIFT SUMMARY PT HAS RESTED ON AND OFF THIS SHIFT. PT HAS HAD SEVERAL PERIODS OF ANXIETY AND AGITATION. SHE IS AT TIMES FORGETFUL AND CAN BE VERBALLY ABUSIVE TOWARDS STAFF. PT REPORTS VISIUAL HALLUCINATIONS, SHE REPORTS SEEING A WOMAN STANDING OUTSIDE THE DOOR. I ALSO OBSERVED PT HAVING AUDITORY HALLUCINATIONS. PT CIWAS RANGE FORM FROM 2 UPWARDS OF 16. CIWAS ARE AROUND 0-2 MEDICATED WITH LIBRIUM. PT HAS PRESSURED SPEECH WITH FLIGHTS OF IDEAS. SHE IS AT TIMES DIFFICULT TO REASON WITH NO MATTER WHAT REASSURANCE OR EDUCATION IS GIVEN. IVF INFUSING ORDERED. PT WORE TELE MOST OF THE NIGHT BUT IS AT THIS TIME REFUSING AND WILL NOT ALLOW STAFF TO PLACE TELE BACK ON. WILL CALL MD TO HAVE ORDER DC'D. THERE HAVE BEEN NO SEIZURE ACTIVITY THIS SHIFT. BED IN LOWEST POSITION, CALL LIGHT WITHIN REACH. WILL CONTINUE TO MONITOR AND REPORT TO ONCOMING RN.
--- NOTE | 2020-03-11 17:12 | NUR ---
SHIFT SUMMARY PT HAS NOT NEEDED PRN TREATMENT PER CIWA SCORE THROUGHOUT SHIFT. PT SLEEPING THROUGHOUT SHIFT. INTERMITTENT AGITATION WHEN WOKEN UP. PT USING COMMODE INDEPENDENTLY. VOIDING WELL. PT C/O PAIN ONCE THIS SHIFT AND TREATED PER EMAR. NO OTHER ACUTE CHANGES IN ASSESSMENT AT THIS TIME. VSS. WILL CONTINUE TO MONITOR UNTIL TURNOVER IS COMPLETE.
--- NOTE | 2020-03-12 04:18 | NUR ---
SUMMARY PT COMPLAINED OF SORE THROAT. PROVIDER ORDER LOZENGE FOR PT. PT HAS BEEN SLEEPING T/O SHIFT. PT IS UNCOOPERATIVE AND DEMANDING AT TIMES. PT REFUSED TO HAVE AM VS TAKEN. CIWA UNREMARKABLE. CALL LIGHT IN REACH. TM
--- NOTE | 2020-03-12 10:27 | NUR ---
PT TO DISCHARGE HOME. PT HAS NO PCP, NO PHARMACY THAT SHE USES. SHE IS HOMELESS STATING SHE IS GOING OUT TO DRINK AGAIN. IV REMOVED , NO SS OFINFECTION NOTED. PT GETTING HERSELF DRESSED. PT STATED SHE HAD MONEY WHEN SHE CAME IN , THIS NURSE CALLED SECURITY TO VARIFY THIS . BELONGS IN ROOM. NO FOLLOW UP WITH DOCTOR WAS SCHEDULED SINCE SHE HAS NO DOCTOR AND REFUSES TO SEE ONE. PT ENCOURAGED TO GET HELP WITH ETOH ABUSE AND TO FIND A PCP .
--- NOTE | 2020-03-12 10:47 | NUR ---
1045 NURSE WAS CALLED TO ASSIST WITH OTHER PATIENT. WHEN I CAME BACK TO ROOM PT WAS GONE. ALL BELONGS GONE WELL . PT STATED THEY SAW HER WALK OUT TOWARDS ELEVATOR.
== END 2020-03-12 10:46 | disposition home or self-care (01) | DRG 896 ==
LOC: ER 19:31 → MEDS 19:32
PROVIDERS: Emergency Medicine; Hospitalist; ADMIT Internal Medicine
DX: F10.231 Alcohol dependence with withdrawal delirium (principal); G92 Toxic encephalopathy; M06.9 Rheumatoid arthritis, unspecified; M79.7 Fibromyalgia; Z87.891 Personal history of nicotine dependence; R56.9 Unspecified convulsions; Z59.0 Homelessness; Y90.0 Blood alcohol level of less than 20 mg/100 ml
CPT/HCPCS: 36415; 70450; 71045; 80048; 80053; 81001; 83735; 84146; 85025; 87077; 87086; 87186; 93005; 93010; 96365; 96366; 96375; 99285-25; A9270; G0480; J1644; J2060; J2405; J3411; J3475; J7030; J7042

== ENCOUNTER 2020-03-16 04:20 | Emergency (ER) | payer OTHER ==
[~2020-03-16] VITALS: Ht 165.1 cm; Wt 53.5 kg
[2020-03-16 05:34] LABS: BASOPHILS ABSOLUTE AUTO 0.08 K/mm3 (0.00-0.23); BASOPHILS PERCENT AUTO 2 % (0-2); EOSINOPHILS ABSOLUTE AUTO 0.14 K/mm3 (0.00-0.68); EOSINOPHILS PERCENT AUTO 3 % (0-6); Hematocrit 31.8 % (33.0-51.0); Hemoglobin 10.2 g/dL (11.5-16.0); IMMATURE GRAN ABSOLUTE AUTO 0.01 K/mm3 (0.00-0.10); IMMATURE GRAN PERCENT AUTO 0 % (0-1); LYMPHOCYTES ABSOLUTE AUTO 3.18 K/mm3 (0.84-5.20); LYMPHOCYTES PERCENT AUTO 61 % (21-46); MONOCYTES ABSOLUTE AUTO 0.56 K/mm3 (0.16-1.47); MONOCYTES PERCENT AUTO 11 % (4-13); Mean Corpuscular HGB 30.7 pg (26.0-34.0); Mean Corpuscular HGB Conc 32.1 g/dL (31.5-36.5); Mean Corpuscular Volume 96 fL (80-100); Mean Platelet Volume 9.5 fL (9.1-12.4); NEUTROPHILS ABSOLUTE AUTO 1.26 K/mm3 (1.96-9.15); NEUTROPHILS PERCENT AUTO 24 % (41-73); Platelet Count 231 K/mm3 (150-400); RDW Standard Deviation 52.1 fL (35.1-46.3); Red Blood Cell Count 3.32 M/mm3 (3.80-5.20); White Blood Cell Count 5.23 K/mm3 (4.00-11.30)
[2020-03-16 05:56] LABS: Alanine Aminotransfer (ALT/SGP 24 U/L (12-78); Albumin, Blood 3.3 g/dL (3.4-5.0); Albumin/Globulin Ratio 0.9 (0.8-1.8); Alk Phos 78 U/L (50-136); Anion Gap 5 mmol/L (6-16); Aspartate Aminotrans (AST/SGOT 58 U/L (12-37); Bilirubin, Total 0.2 mg/dL (0.1-1.0); Blood Urea Nitrogen 16 mg/dL (8-24); Bun/Creatinine Ratio 28.2 (12.0-20.0); CO2, Blood 27 mmol/L (21-32); Calcium, Blood 8.4 mg/dL (8.5-10.1); Chloride, Blood 112 mmol/L (98-108); Creatinine, Blood 0.57 mg/dL (0.40-1.00); Globulin, Blood 3.6 g/dL (2.2-4.0); Glomerular Filtration Rate >60 (60-); Glucose, Blood 86 mg/dL (70-99); Potassium, Blood 3.9 mmol/L (3.5-5.5); Sodium, Blood 144 mmol/L (136-145); Total Protein, Blood 6.9 g/dL (6.4-8.2)
[2020-03-16 06:03] LABS: Ethanol (Alcohol), Blood, Med 358 mg/dL
== END 2020-03-16 06:23 | disposition home or self-care (01) ==
LOC: ER 04:20
PROVIDERS: Emergency Medicine
DX: F10.129 Alcohol abuse with intoxication, unspecified (principal); Z88.8 Allergy status to other drugs, medicaments and biological substances; Z88.5 Allergy status to narcotic agent
CPT/HCPCS: 36415; 80053; 83690; 85025; 96360; 99284-25; G0480; J7030

== ENCOUNTER 2020-03-22 01:48 | Emergency (ER) | payer OTHER | END 2020-03-22 02:00 | disposition left against medical advice (07) | LOC: ER 01:48 | DX: Z53.21 Procedure and treatment not carried out due to patient leaving prior to being seen by health care provider (principal) ==

== ENCOUNTER 2020-03-26 23:21 | Emergency (ER) | payer OTHER ==
[~2020-03-26] VITALS: Ht 162.6 cm; Wt 52.2 kg
== END 2020-03-27 00:07 | disposition home or self-care (01) ==
LOC: ER 23:21
DX: Z00.8 Encounter for other general examination (principal); Z59.0 Homelessness; Z88.8 Allergy status to other drugs, medicaments and biological substances; Z87.891 Personal history of nicotine dependence
CPT/HCPCS: 93005; 93010; 99284-25

== ENCOUNTER 2020-03-28 03:17 | Emergency (ER) | payer OTHER ==
[~2020-03-28] VITALS: Ht 165.1 cm; Wt 45.4 kg
[2020-03-28 04:03] LABS: BASOPHILS ABSOLUTE AUTO 0.04 K/mm3 (0.00-0.23); BASOPHILS PERCENT AUTO 1 % (0-2); EOSINOPHILS ABSOLUTE AUTO 0.07 K/mm3 (0.00-0.68); EOSINOPHILS PERCENT AUTO 2 % (0-6); Hematocrit 35.5 % (33.0-51.0); Hemoglobin 11.8 g/dL (11.5-16.0); IMMATURE GRAN ABSOLUTE AUTO 0.01 K/mm3 (0.00-0.10); IMMATURE GRAN PERCENT AUTO 0 % (0-1); LYMPHOCYTES PERCENT AUTO 32 % (21-46); MONOCYTES ABSOLUTE AUTO 0.31 K/mm3 (0.16-1.47); MONOCYTES PERCENT AUTO 8 % (4-13); Mean Corpuscular HGB 31.4 pg (26.0-34.0); Mean Corpuscular HGB Conc 33.2 g/dL (31.5-36.5); Mean Corpuscular Volume 94 fL (80-100); Mean Platelet Volume 9.4 fL (9.1-12.4); NEUTROPHILS ABSOLUTE AUTO 2.08 K/mm3 (1.96-9.15); NEUTROPHILS PERCENT AUTO 56 % (41-73); Platelet Count 179 K/mm3 (150-400); RDW Coefficient Variation 16.6 % (11.7-14.2); RDW Standard Deviation 57.3 fL (35.1-46.3); Red Blood Cell Count 3.76 M/mm3 (3.80-5.20); White Blood Cell Count 3.71 K/mm3 (4.00-11.30)
[2020-03-28 04:26] LABS: Ethanol (Alcohol), Blood, Med 196 mg/dL; Salicylate <1.7 mg/dL (2.8-20.0); Troponin I <0.015 ng/mL (0.000-0.040)
[2020-03-28 04:31] LABS: Alanine Aminotransfer (ALT/SGP 25 U/L (12-78); Albumin, Blood 3.6 g/dL (3.4-5.0); Albumin/Globulin Ratio 0.9 (0.8-1.8); Alk Phos 132 U/L (50-136); Anion Gap 11 mmol/L (6-16); Aspartate Aminotrans (AST/SGOT 73 U/L (12-37); Bilirubin, Total 0.4 mg/dL (0.1-1.0); Blood Urea Nitrogen 13 mg/dL (8-24); Bun/Creatinine Ratio 27.4 (12.0-20.0); CO2, Blood 25 mmol/L (21-32); Calcium, Blood 8.1 mg/dL (8.5-10.1); Chloride, Blood 105 mmol/L (98-108); Creatinine, Blood 0.48 mg/dL (0.40-1.00); Globulin, Blood 4.2 g/dL (2.2-4.0); Glomerular Filtration Rate >60 (60-); Glucose, Blood 84 mg/dL (70-99); Potassium, Blood 3.7 mmol/L (3.5-5.5); Sodium, Blood 141 mmol/L (136-145); Total Protein, Blood 7.8 g/dL (6.4-8.2)
[2020-03-28 04:38] LABS: Acetaminophen, Random <2.0 ug/mL (10.0-30.0)
== END 2020-03-28 06:20 | disposition home or self-care (01) ==
LOC: ER 03:17
PROVIDERS: Emergency Medicine
DX: F10.129 Alcohol abuse with intoxication, unspecified (principal); Y90.6 Blood alcohol level of 120-199 mg/100 ml
CPT/HCPCS: 80053; 83690; 84484; 85025; 93005; 93010; 99284-25; G0480

== ENCOUNTER 2020-04-13 07:33 | Observation (INO) | payer OTHER ==
[~2020-04-13] VITALS: Ht 165.1 cm; Wt 49.9 kg
[2020-04-13 08:05] LABS: BASOPHILS ABSOLUTE AUTO 0.08 K/mm3 (0.00-0.23); BASOPHILS PERCENT AUTO 1 % (0-2); EOSINOPHILS ABSOLUTE AUTO 0.01 K/mm3 (0.00-0.68); EOSINOPHILS PERCENT AUTO 0 % (0-6); Hematocrit 38.1 % (33.0-51.0); Hemoglobin 12.4 g/dL (11.5-16.0); IMMATURE GRAN ABSOLUTE AUTO 0.02 K/mm3 (0.00-0.10); IMMATURE GRAN PERCENT AUTO 0 % (0-1); LYMPHOCYTES ABSOLUTE AUTO 0.92 K/mm3 (0.84-5.20); LYMPHOCYTES PERCENT AUTO 13 % (21-46); MONOCYTES ABSOLUTE AUTO 0.66 K/mm3 (0.16-1.47); MONOCYTES PERCENT AUTO 9 % (4-13); Mean Corpuscular HGB 32.8 pg (26.0-34.0); Mean Corpuscular HGB Conc 32.5 g/dL (31.5-36.5); Mean Corpuscular Volume 101 fL (80-100); Mean Platelet Volume 9.4 fL (9.1-12.4); NEUTROPHILS ABSOLUTE AUTO 5.38 K/mm3 (1.96-9.15); NEUTROPHILS PERCENT AUTO 76 % (41-73); Platelet Count 169 K/mm3 (150-400); RDW Coefficient Variation 18.2 % (11.7-14.2); RDW Standard Deviation 68.1 fL (35.1-46.3); Red Blood Cell Count 3.78 M/mm3 (3.80-5.20); White Blood Cell Count 7.07 K/mm3 (4.00-11.30)
[2020-04-13 08:21] LABS: Anion Gap 17 mmol/L (6-16); Blood Urea Nitrogen 9 mg/dL (8-24); Bun/Creatinine Ratio 20.8 (12.0-20.0); CO2, Blood 19 mmol/L (21-32); Calcium, Blood 8.4 mg/dL (8.5-10.1); Chloride, Blood 102 mmol/L (98-108); Creatinine, Blood 0.43 mg/dL (0.40-1.00); Glomerular Filtration Rate >60 (60-); Glucose, Blood 132 mg/dL (70-99); Potassium, Blood 3.8 mmol/L (3.5-5.5); Sodium, Blood 138 mmol/L (136-145)
[2020-04-13 09:58] LABS: Albumin/Globulin Ratio 0.9 (0.8-1.8); Bilirubin, Direct 0.2 mg/dL (0.0-0.3); Bilirubin, Indirect 0.3 mg/dL (0.1-0.7); Bilirubin, Total 0.5 mg/dL (0.1-1.0); Globulin, Blood 4.7 g/dL (2.2-4.0); Magnesium, Blood 1.6 mg/dL (1.6-2.4); Total Protein, Blood 8.7 g/dL (6.4-8.2)
[2020-04-13 11:20] LABS: Alanine Aminotransfer (ALT/SGP 27 U/L (12-78); Albumin/Globulin Ratio 0.9 (0.8-1.8); Alk Phos 138 U/L (50-136); Anion Gap 20 mmol/L (6-16); Aspartate Aminotrans (AST/SGOT 130 U/L (12-37); Bilirubin, Total 0.6 mg/dL (0.1-1.0); Blood Urea Nitrogen 9 mg/dL (8-24); Bun/Creatinine Ratio 20.5 (12.0-20.0); CO2, Blood 17 mmol/L (21-32); Calcium, Blood 8.2 mg/dL (8.5-10.1); Chloride, Blood 102 mmol/L (98-108); Creatinine, Blood 0.44 mg/dL (0.40-1.00); Globulin, Blood 4.7 g/dL (2.2-4.0); Glomerular Filtration Rate >60 (60-); Glucose, Blood 137 mg/dL (70-99); Potassium, Blood 3.8 mmol/L (3.5-5.5); Sodium, Blood 139 mmol/L (136-145); Total Protein, Blood 8.7 g/dL (6.4-8.2)
[2020-04-13 11:24] LABS: CPK Creatine Kinase 113 U/L (26-193)
--- NOTE | 2020-04-13 11:53 | NUR ---
PATIENT GAVE BUSINESS ASSISTANT PERMISSION TO PROVIDE CARE ON 04/13/20.
--- NOTE | 2020-04-13 12:48 | NUR ---
TO ICU 12 AT 1130 REPORT RECEIVED FROM ER NURSE, PT SETTLED IN TO BED. PRECEDEX 0.2MCG/KG/HR AND BANANA BAG INFUSING PER ORDERS. PT CALM AND COOPERATIVE AT THIS TIME, REPORTS NAUSEA WITH MOVEMENT BUT SETTLES WITH REST. HR 150'S SIT UPON ARRIVAL, DROPPED TO 90'S SINUS SHORTLY AFTER INITIATION OF PRECEDEX, OTHER VSS. SPO2 100% ON 6L/OXYMASK, WILL TITRATE DOWN ABLE. LS CLEAR, BT+, PT UNSURE OF LAST BM, ALSO UNSURE OF LAST DRINK, STATES SHE DRINKS 4 TALL MALT LIQUOR BEERS PER DAY AT BASELINE, DENIES ANY ALCOHOL TODAY. PT SLEEPY, WILL COMPLETE ADMISSION ASSESSMENT AND PAPERWORK PT BECOMES MORE ALERT.
--- NOTE | 2020-04-13 18:35 | NUR ---
SHIFT SUMMARY PT REMAINS ON PRECEDEX ON RATE UNCHANGED AND WAS DROWSY T/O SHIFT. WAS ABLE TO ANSWER QUESTIONS FOR ASSESSMENT. REMAINS ORIENTED x 3. O2 TITRATED DOWN TO 2L N/C. SPO2 >95%. O2 REMAINS ON D/T SPO2 DESAT WHILE SLEEPING. HR 80S-90S AND BP IS STABLE. NO BM ON SHIFT. PT WAS PLACED IN ATTENDS AFTER VOIDING IN BEDPAN. BEDBATH GIVEN AND SKINCARE PROVIDED. DINNER HELD DUE TO DROSINESS. CIWA 7 AT THIS TIME. NO COMLAINTS OF SOB AND LS CTA. PT MEDICATED X 1 FOR N/V. REPORT TO ONCOMING SHIFT.
--- NOTE | 2020-04-13 19:00 | NUR ---
ASSUMED CARE NOTE: ASSUMED CARE OF PT AT 1900, RECEVIED REPORT FROM BUSINESS RECORDS MANAGER MADAN, AND JENNIFER DELEON. PT IS DROWSY,HOWEVER IS AROUSABLE. PT UNABLE TO STAY AWAKE TO CARRY A CONVERSTATION. SHE CAN ANSWER YES/NO QUESTIONS. PT DENIES N/V AT THIS TIME. PT IS ON 0.2MG/KG/HR OF PRECEDEX. PT IS IN NSR WITH HR IN THE 80'S, VSS. C/O URQ PAIN. PT IS ON RA, SPO2 ABOVE 90% PT IS INCONTINENT OF URINE, ATTENDS ARE DRY AT THIS TIME. WILL CONTINUE TO MONITOR PT T/O SHIFT.
--- NOTE | 2020-04-13 19:17 | NUR ---
ERROR: ADMISSION ASSESSMENT 1553 CHARTED THAT PT RECEIVED TYLENOL, ERROR MADE. PT DID NOT RECEIVE TYLENOL.
--- NOTE | 2020-04-13 19:27 | NUR ---
SERVICE AND REPAIR SUPERVISOR WORKED WITH STUDENT RN TODAY, ASSISTED WITH PT CARE AND CHARTING. ALL CHARTING REVIEWED BY THIS RN, AGREE WITH STUDENTS CARTING AND ASSESSMENTS.
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
--- NOTE | 2020-04-14 03:00 | NUR ---
UPDATE: PT AWAKE, ASKING TO USE BEDPAN. LIBRIUM GIVEN ORDERED FOR CIWA OF 9. PT C/O HAVING TO BE WOKEN OFTEN. PT WAS ADVISED THAT SHE WAS IN ICU, AND THEREFORE CLOSE MONITORING IS NEEDED. PT CONTINUES TO BE ALERT AND ORIENTED AND ABLE TO CARRY A CONVERSATION. WILL CONTINUE TO MONITOR PT.
[2020-04-14 03:25] LABS: BASOPHILS ABSOLUTE AUTO 0.03 K/mm3 (0.00-0.23); BASOPHILS PERCENT AUTO 1 % (0-2); EOSINOPHILS ABSOLUTE AUTO 0.05 K/mm3 (0.00-0.68); EOSINOPHILS PERCENT AUTO 2 % (0-6); Hematocrit 30.8 % (33.0-51.0); Hemoglobin 9.8 g/dL (11.5-16.0); IMMATURE GRAN ABSOLUTE AUTO 0.01 K/mm3 (0.00-0.10); IMMATURE GRAN PERCENT AUTO 0 % (0-1); LYMPHOCYTES ABSOLUTE AUTO 1.04 K/mm3 (0.84-5.20); LYMPHOCYTES PERCENT AUTO 30 % (21-46); MONOCYTES ABSOLUTE AUTO 0.53 K/mm3 (0.16-1.47); MONOCYTES PERCENT AUTO 16 % (4-13); Mean Corpuscular HGB 32.2 pg (26.0-34.0); Mean Corpuscular HGB Conc 31.8 g/dL (31.5-36.5); Mean Corpuscular Volume 101 fL (80-100); Mean Platelet Volume 9.7 fL (9.1-12.4); NEUTROPHILS ABSOLUTE AUTO 1.77 K/mm3 (1.96-9.15); NEUTROPHILS PERCENT AUTO 52 % (41-73); Platelet Count 102 K/mm3 (150-400); RDW Coefficient Variation 17.7 % (11.7-14.2); Red Blood Cell Count 3.04 M/mm3 (3.80-5.20); White Blood Cell Count 3.43 K/mm3 (4.00-11.30)
[2020-04-14 03:42] LABS: Magnesium, Blood 1.9 mg/dL (1.6-2.4); Phosphorus, Blood 2.1 mg/dL (2.5-4.9)
--- NOTE | 2020-04-14 06:07 | NUR ---
SHIFT SUMMARY: READ PREVIOUS NOTES. PT REMAINS ALERT AND ORIENTED. PT DENIES NAUSEA/VOMITING OR HEADACHES. PT DENIES VISUAL OR AUDITORY HALLUCINATIONS. PT HAS BEEN OFF AND ON OF OXYGEN T/O SHIFT. PT IS ON 2L OF O2 VIA NC, WITH SPO2 ABOVE 90% PT'S DIET ORDER WAS ADVANCED TOLERATED. LAST CIWA SCORE WAS A THREE. PT HAS BEEN OFF PRECEDEX SINCE 229. PT IS AFEBRILE. HAS BEEN IN NSR WITH HR BETWEEN 80-90 BPM. VSS. PT HAS BEEN USING BEDPAN FOR MOST OF THE SHIFT, ATTENDS IN PLACE. PT HAS SIGNED CONSENT TO REFUSE BLOOD OR ANY BLOOD PRODUCTS DUE TO QUAKER PRACTICES. PT C/O BLADDER PAIN/SPASM, URINE IS BEING CULTURED. WILL CONTINUE TO MONITOR PT UNTIL REPORT IS GIVEN TO AM SHIFT
--- NOTE | 2020-04-14 12:58 | NUR ---
1208 AMA PT RESTING IN QUIETLY IN BED, VSS, DR. MCNEIL IN TO ASSESS. AT THIS TIME PT REPORTS SHE WANTS TO LEAVE BECAUSE SHE HAS NOT BEEN GIVEN ANYTHING TO EAT AND IS UNSATISIFIED WITH CARE, FOOD TRAYS HAVE BEEN DELIVERED ORDERED. DR. MCNEIL EXPLAINS TO PATIENT THE BENEFITS OF STAYING AND RISKS OF LEAVING, PT STILL WOULD LIKE TO LEAVE. AMA FORM SIGNED, WITH THIS RN AFTER REVIEWING RISKS/BENEFITS OF LEAVING. IV'S DC'D WITH TIPS INTACT, PRESSURE DRESSINGS APPLIED. PT DRESSED IN OWN CLOTHING, LEFT AMA AT 1208 WITH BELONGINGS, GAIT STEADY, WAS SHOWN WAY TO EXIT BY STAFF. VS STABLE UPON DEPARTURE.
--- NOTE | 2020-04-14 19:38 | NUR ---
RN VERIFICATION THIS RN WORKED WITH SN TODAY, SUPERVISED AND AGREES WITH ALL CHARTING AND CARE.
== END 2020-04-14 12:11 | disposition left against medical advice (07) ==
LOC: ER 07:33 → ICUW 07:34
PROVIDERS: Emergency Medicine; ADMIT Family Medicine
DX: F10.231 Alcohol dependence with withdrawal delirium (principal); E03.9 Hypothyroidism, unspecified; G92 Toxic encephalopathy; I10 Essential (primary) hypertension; Y90.1 Blood alcohol level of 20-39 mg/100 ml; Z59.0 Homelessness; Z88.8 Allergy status to other drugs, medicaments and biological substances; Z88.6 Allergy status to analgesic agent
CPT/HCPCS: 36415; 80048; 80053; 80076; 82140; 82550; 82947; 83690; 83735; 84100; 84443; 85025; 87077; 87086; 87186; 93005; 93010; 96361; 96365; 96372; 96374; 96375; 96376; 99285-25; A9270-GY; G0378; G0480; J0780; J1650; J2060; J2405; J3411; J3475; J7030; J7042; J7060

== ENCOUNTER 2020-04-22 12:33 | Emergency (ER) | payer OTHER ==
[~2020-04-22] VITALS: Ht 162.6 cm; Wt 59.0 kg
== END 2020-04-22 13:57 | disposition left against medical advice (07) ==
LOC: ER 12:33
DX: Z53.21 Procedure and treatment not carried out due to patient leaving prior to being seen by health care provider (principal)

== ENCOUNTER 2020-04-30 20:15 | Emergency (ER) | payer OTHER ==
[~2020-04-30] VITALS: Ht 160 cm; Wt 54.4 kg
== END 2020-05-01 00:15 | disposition home or self-care (01) ==
LOC: ER 20:15
DX: S00.81XA Abrasion of other part of head, initial encounter (principal); F10.10 Alcohol abuse, uncomplicated; Z88.8 Allergy status to other drugs, medicaments and biological substances; X58.XXXA Exposure to other specified factors, initial encounter
CPT/HCPCS: 70450; 99284-25

== ENCOUNTER 2020-06-22 13:19 | Emergency (ER) | payer OTHER ==
[~2020-06-22] VITALS: Ht 165.1 cm; Wt 68.0 kg
[~2020-06-22 13:19] MED LIST changes: +Ciloxan5 ML BOTHEYES
== END 2020-06-22 14:25 | disposition left against medical advice (07) ==
LOC: ER 13:19
DX: Z53.21 Procedure and treatment not carried out due to patient leaving prior to being seen by health care provider (principal)

== ENCOUNTER 2020-08-14 19:46 | Emergency (ER) | payer OTHER ==
[~2020-08-14] VITALS: Ht 157.5 cm; Wt 54.4 kg
[~2020-08-14 19:46] MED LIST changes: +DOXY100 PO; +NAPPHEOPSO BOTHEYES
[2020-08-14 21:18] LABS: BASOPHILS ABSOLUTE AUTO 0.07 K/mm3 (0.00-0.23); BASOPHILS PERCENT AUTO 2 % (0-2); EOSINOPHILS PERCENT AUTO 3 % (0-6); Hematocrit 35.4 % (33.0-51.0); Hemoglobin 11.5 g/dL (11.5-16.0); IMMATURE GRAN ABSOLUTE AUTO 0.01 K/mm3 (0.00-0.10); IMMATURE GRAN PERCENT AUTO 0 % (0-1); LYMPHOCYTES ABSOLUTE AUTO 2.18 K/mm3 (0.84-5.20); LYMPHOCYTES PERCENT AUTO 54 % (21-46); MONOCYTES ABSOLUTE AUTO 0.65 K/mm3 (0.16-1.47); MONOCYTES PERCENT AUTO 16 % (4-13); Mean Corpuscular HGB 33.6 pg (26.0-34.0); Mean Corpuscular HGB Conc 32.5 g/dL (31.5-36.5); Mean Corpuscular Volume 104 fL (80-100); NEUTROPHILS ABSOLUTE AUTO 1.03 K/mm3 (1.96-9.15); NEUTROPHILS PERCENT AUTO 26 % (41-73); Platelet Count 358 K/mm3 (150-400); RDW Coefficient Variation 12.8 % (11.7-14.2); RDW Standard Deviation 48.9 fL (35.1-46.3); Red Blood Cell Count 3.42 M/mm3 (3.80-5.20); White Blood Cell Count 4.04 K/mm3 (4.00-11.30)
[2020-08-14 21:38] LABS: Alanine Aminotransfer (ALT/SGP 25 U/L (12-78); Albumin, Blood 3.4 g/dL (3.4-5.0); Albumin/Globulin Ratio 0.9 (0.8-1.8); Alk Phos 99 U/L (50-136); Anion Gap 11 mmol/L (6-16); Aspartate Aminotrans (AST/SGOT 91 U/L (12-37); Bilirubin, Total 0.2 mg/dL (0.1-1.0); Blood Urea Nitrogen 15 mg/dL (8-24); Bun/Creatinine Ratio 23.5 (12.0-20.0); CO2, Blood 24 mmol/L (21-32); Calcium, Blood 8.5 mg/dL (8.5-10.1); Chloride, Blood 109 mmol/L (98-108); Creatinine, Blood 0.64 mg/dL (0.40-1.00); Globulin, Blood 3.7 g/dL (2.2-4.0); Glomerular Filtration Rate >60 (60-); Glucose, Blood 93 mg/dL (70-99); Potassium, Blood 3.6 mmol/L (3.5-5.5); Sodium, Blood 144 mmol/L (136-145); Total Protein, Blood 7.1 g/dL (6.4-8.2)
[2020-08-14 22:19] LABS: Ethanol (Alcohol), Blood, Med 287 mg/dL
== END 2020-08-15 00:04 | disposition home or self-care (01) ==
LOC: ER 19:46
PROVIDERS: Emergency Medicine
DX: F10.229 Alcohol dependence with intoxication, unspecified (principal); I10 Essential (primary) hypertension; Z88.6 Allergy status to analgesic agent; Z88.8 Allergy status to other drugs, medicaments and biological substances; Z79.899 Other long term (current) drug therapy; Y90.8 Blood alcohol level of 240 mg/100 ml or more
CPT/HCPCS: 36415; 70450; 72125; 80053; 83735; 85025; 99285-25; G0480

== ENCOUNTER 2020-09-03 12:24 | Emergency (ER) | payer OTHER ==
[~2020-09-03] VITALS: Ht 165.1 cm; Wt 56.7 kg
== END 2020-09-03 16:27 | disposition home or self-care (01) ==
LOC: ER 12:24
DX: S02.2XXA Fracture of nasal bones, initial encounter for closed fracture (principal); S01.81XA Laceration without foreign body of other part of head, initial encounter; I10 Essential (primary) hypertension; Z88.5 Allergy status to narcotic agent; Z88.8 Allergy status to other drugs, medicaments and biological substances; W16.112A Fall into natural body of water striking water surface causing other injury, initial encounter
CPT/HCPCS: 12011; 70450; 70486; 72125; 99283-25; A9270

== ENCOUNTER 2020-09-03 21:25 | Observation (INO) | payer OTHER ==
[~2020-09-03] VITALS: Ht 160 cm; Wt 45.4 kg
[2020-09-03 22:39] LABS: BASOPHILS ABSOLUTE AUTO 0.05 K/mm3 (0.00-0.23); BASOPHILS PERCENT AUTO 1 % (0-2); EOSINOPHILS ABSOLUTE AUTO 0.06 K/mm3 (0.00-0.68); EOSINOPHILS PERCENT AUTO 2 % (0-6); Hematocrit 43.7 % (33.0-51.0); Hemoglobin 14.2 g/dL (11.5-16.0); IMMATURE GRAN ABSOLUTE AUTO 0.01 K/mm3 (0.00-0.10); IMMATURE GRAN PERCENT AUTO 0 % (0-1); LYMPHOCYTES ABSOLUTE AUTO 1.58 K/mm3 (0.84-5.20); LYMPHOCYTES PERCENT AUTO 41 % (21-46); MONOCYTES ABSOLUTE AUTO 0.24 K/mm3 (0.16-1.47); MONOCYTES PERCENT AUTO 6 % (4-13); Mean Corpuscular HGB 33.2 pg (26.0-34.0); Mean Corpuscular HGB Conc 32.5 g/dL (31.5-36.5); Mean Corpuscular Volume 102 fL (80-100); NEUTROPHILS ABSOLUTE AUTO 1.93 K/mm3 (1.96-9.15); NEUTROPHILS PERCENT AUTO 50 % (41-73); RDW Coefficient Variation 12.1 % (11.7-14.2); RDW Standard Deviation 45.6 fL (35.1-46.3); Red Blood Cell Count 4.28 M/mm3 (3.80-5.20); White Blood Cell Count 3.87 K/mm3 (4.00-11.30)
[2020-09-03 22:40] LABS: Mean Platelet Volume 9.8 fL (9.1-12.4); Platelet Count 172 K/mm3 (150-400)
[2020-09-03 22:55] LABS: Acetaminophen, Random 3.2 ug/mL (10.0-30.0); Alanine Aminotransfer (ALT/SGP 38 U/L (12-78); Albumin, Blood 3.9 g/dL (3.4-5.0); Albumin/Globulin Ratio 0.9 (0.8-1.8); Alk Phos 135 U/L (50-136); Anion Gap 12 mmol/L (6-16); Aspartate Aminotrans (AST/SGOT 125 U/L (12-37); Bilirubin, Total 0.3 mg/dL (0.1-1.0); Blood Urea Nitrogen 13 mg/dL (8-24); CO2, Blood 24 mmol/L (21-32); Calcium, Blood 8.6 mg/dL (8.5-10.1); Chloride, Blood 109 mmol/L (98-108); Creatinine, Blood 0.42 mg/dL (0.40-1.00); Globulin, Blood 4.2 g/dL (2.2-4.0); Glomerular Filtration Rate >60 (60-); Glucose, Blood 73 mg/dL (70-99); Potassium, Blood 3.9 mmol/L (3.5-5.5); Salicylate <1.7 mg/dL (2.8-20.0); Sodium, Blood 145 mmol/L (136-145); Total Protein, Blood 8.1 g/dL (6.4-8.2)
[2020-09-03 23:06] LABS: Ethanol (Alcohol), Blood, Med 423 mg/dL
[2020-09-04 02:36] LABS: Source, Urine Clean Catch
[2020-09-04 02:41] LABS: Appearance, Urine Hazy (Clear); Bilirubin, Urine Neg (Neg); Blood, Urine 1+ (Neg); Color, Urine Yellow (P-Yellow); Glucose Qualitative, Urine Neg (Neg); Ketones, Urine 2+ (Neg); Leukocyte Esterase, Urine 1+ (Neg); Nitrite, Urine Pos (Neg); Protein, Urine 2+ (Neg); Urobilinogen, Urine NORM (Normal)
[2020-09-04 02:47] LABS: Bacteria Many /hpf; Red Blood Cells, Urine Rare /hpf (0-2); Squamous Epithelial Cells Rare /hpf (Few)
[2020-09-04 02:51] LABS: U Amphetamine Screen Not Detected; U Barbituate Screen Not Detected; U Benzodiazapine Screen DETECTED; U Buprenorphine Screen Not Detected; U Cannabinoids Screen Not Detected; U Cocaine Screen Not Detected; U Methadone Screen Not Detected; U Methamphetamine Screen Not Detected; U Opiates Screen Not Detected; U Oxycodone Screen Not Detected; U Phencyclidine Screen Not Detected; U Propoxyphene Screen Not Detected
== END 2020-09-04 06:02 | disposition home or self-care (01) ==
LOC: ER 21:25 → EOR 09-04 00:14
PROVIDERS: Physician Assistant; ADMIT Emergency Medicine
DX: F10.129 Alcohol abuse with intoxication, unspecified (principal); Y90.8 Blood alcohol level of 240 mg/100 ml or more; S09.90XA Unspecified injury of head, initial encounter; S00.212A Abrasion of left eyelid and periocular area, initial encounter; Z88.5 Allergy status to narcotic agent; Z88.8 Allergy status to other drugs, medicaments and biological substances
CPT/HCPCS: 70450; 80053; 81001; 81025; 85025; 87077; 87086; 87186; 99285-25; G0378; G0480

== ENCOUNTER 2020-09-10 04:43 | Emergency (ER) | payer OTHER ==
[~2020-09-10] VITALS: Ht 165.1 cm; Wt 45.4 kg
[2020-09-10 05:31] LABS: BASOPHILS ABSOLUTE AUTO 0.04 K/mm3 (0.00-0.23); BASOPHILS PERCENT AUTO 1 % (0-2); EOSINOPHILS ABSOLUTE AUTO 0.03 K/mm3 (0.00-0.68); EOSINOPHILS PERCENT AUTO 1 % (0-6); Hematocrit 34.9 % (33.0-51.0); Hemoglobin 11.7 g/dL (11.5-16.0); IMMATURE GRAN ABSOLUTE AUTO 0.03 K/mm3 (0.00-0.10); IMMATURE GRAN PERCENT AUTO 1 % (0-1); LYMPHOCYTES ABSOLUTE AUTO 2.02 K/mm3 (0.84-5.20); LYMPHOCYTES PERCENT AUTO 43 % (21-46); MONOCYTES ABSOLUTE AUTO 0.35 K/mm3 (0.16-1.47); MONOCYTES PERCENT AUTO 7 % (4-13); Mean Corpuscular HGB 33.2 pg (26.0-34.0); Mean Corpuscular HGB Conc 33.5 g/dL (31.5-36.5); Mean Corpuscular Volume 99 fL (80-100); Mean Platelet Volume 9.4 fL (9.1-12.4); NEUTROPHILS ABSOLUTE AUTO 2.27 K/mm3 (1.96-9.15); NEUTROPHILS PERCENT AUTO 48 % (41-73); Platelet Count 177 K/mm3 (150-400); RDW Coefficient Variation 12.4 % (11.7-14.2); RDW Standard Deviation 44.8 fL (35.1-46.3); Red Blood Cell Count 3.52 M/mm3 (3.80-5.20); White Blood Cell Count 4.74 K/mm3 (4.00-11.30)
[2020-09-10 05:42] LABS: Alanine Aminotransfer (ALT/SGP 34 U/L (12-78); Albumin, Blood 3.9 g/dL (3.4-5.0); Alk Phos 125 U/L (50-136); Anion Gap 13 mmol/L (6-16); Aspartate Aminotrans (AST/SGOT 103 U/L (12-37); Bilirubin, Total 0.6 mg/dL (0.1-1.0); Blood Urea Nitrogen 10 mg/dL (8-24); Bun/Creatinine Ratio 20.6 (12.0-20.0); CO2, Blood 25 mmol/L (21-32); Calcium, Blood 8.4 mg/dL (8.5-10.1); Chloride, Blood 100 mmol/L (98-108); Creatinine, Blood 0.49 mg/dL (0.40-1.00); Globulin, Blood 3.8 g/dL (2.2-4.0); Glomerular Filtration Rate >60 (60-); Glucose, Blood 117 mg/dL (70-99); Potassium, Blood 3.9 mmol/L (3.5-5.5); Sodium, Blood 138 mmol/L (136-145); Total Protein, Blood 7.7 g/dL (6.4-8.2)
[2020-09-10] MEDS ORDERED: CHLO25 PO (05:53)
[2020-09-10] MEDS ORDERED: PROM25 PO (05:53)
== END 2020-09-10 06:16 | disposition home or self-care (01) ==
LOC: ER 04:43
PROVIDERS: Emergency Medicine
DX: F10.139 Alcohol abuse with withdrawal, unspecified (principal); Z88.8 Allergy status to other drugs, medicaments and biological substances; Z88.6 Allergy status to analgesic agent; Z87.442 Personal history of urinary calculi
CPT/HCPCS: 80053; 83690; 85025; 99285; A9270-GY

== ENCOUNTER 2020-10-10 10:51 | Inpatient (IN) | payer OTHER ==
[~2020-10-10] VITALS: Ht 165.1 cm; Wt 59.0 kg
[~2020-10-10 10:51] MED LIST changes: +CHLO25 PO
[2020-10-10 14:35] LABS: BASOPHILS ABSOLUTE AUTO 0.04 K/mm3 (0.00-0.23); BASOPHILS PERCENT AUTO 1 % (0-2); EOSINOPHILS ABSOLUTE AUTO 0.03 K/mm3 (0.00-0.68); EOSINOPHILS PERCENT AUTO 0 % (0-6); Hematocrit 34.5 % (33.0-51.0); Hemoglobin 11.5 g/dL (11.5-16.0); IMMATURE GRAN ABSOLUTE AUTO 0.03 K/mm3 (0.00-0.10); IMMATURE GRAN PERCENT AUTO 0 % (0-1); LYMPHOCYTES PERCENT AUTO 23 % (21-46); MONOCYTES ABSOLUTE AUTO 1.51 K/mm3 (0.16-1.47); MONOCYTES PERCENT AUTO 19 % (4-13); Mean Corpuscular HGB 34.1 pg (26.0-34.0); Mean Corpuscular HGB Conc 33.3 g/dL (31.5-36.5); Mean Corpuscular Volume 102 fL (80-100); Mean Platelet Volume 9.2 fL (9.1-12.4); NEUTROPHILS ABSOLUTE AUTO 4.45 K/mm3 (1.96-9.15); NEUTROPHILS PERCENT AUTO 57 % (41-73); Platelet Count 280 K/mm3 (150-400); RDW Coefficient Variation 12.1 % (11.7-14.2); RDW Standard Deviation 45.1 fL (35.1-46.3); Red Blood Cell Count 3.37 M/mm3 (3.80-5.20); White Blood Cell Count 7.86 K/mm3 (4.00-11.30)
[2020-10-10 14:52] LABS: Prothrombin Time Results 10.7 Sec (9.7-11.5)
[2020-10-10 15:25] LABS: Alanine Aminotransfer (ALT/SGP 24 U/L (12-78); Albumin, Blood 3.8 g/dL (3.4-5.0); Albumin/Globulin Ratio 0.9 (0.8-1.8); Alk Phos 135 U/L (50-136); Anion Gap 11 mmol/L (6-16); Aspartate Aminotrans (AST/SGOT 45 U/L (12-37); Bilirubin, Total 0.5 mg/dL (0.1-1.0); Blood Urea Nitrogen 8 mg/dL (8-24); Bun/Creatinine Ratio 17.6 (12.0-20.0); CO2, Blood 23 mmol/L (21-32); Calcium, Blood 9.1 mg/dL (8.5-10.1); Chloride, Blood 105 mmol/L (98-108); Creatinine, Blood 0.46 mg/dL (0.40-1.00); Globulin, Blood 4.1 g/dL (2.2-4.0); Glomerular Filtration Rate >60 (60-); Glucose, Blood 96 mg/dL (70-99); Potassium, Blood 3.1 mmol/L (3.5-5.5); Sodium, Blood 139 mmol/L (136-145); Total Protein, Blood 7.9 g/dL (6.4-8.2)
--- NOTE | 2020-10-10 16:05 | NUR ---
PT SLEEPING, RESP E/U.
--- NOTE | 2020-10-10 16:55 | NUR ---
PT TO IMAGING VIA CART.
--- NOTE | 2020-10-10 17:30 | NUR ---
DR MCWILLIAMS HERE TO SEE PT, PT AGREES TO PLAN FOR SURGERY TOMMORROW. PT REPORTS UNDERSTANDING OF NPO AFTER MIDNIGHT.
--- NOTE | 2020-10-10 18:50 | NUR ---
PT MORE ALERT THIS EVENING, PT REQUEST TO HAVE PHENERGAN FOR NAUSEA. PT IRRITABLE RELATED TO PAIN. PT BEEN ASSISTED WITH ADL'S PRN. PT MED FOR PAIN. CIWA 3-4. DR QUEEN NOTIFIED. DISCUSSED PT REQ FOR PHENERGAN AND CIWA'S. SEE ORDERS.
--- NOTE | 2020-10-10 22:35 | NUR ---
CIWA CALLED TO ASSIST IN ROOM BY PRIMARY RN. PT VERY AGGITATED, PARANOID AND TALKING TO SELF. STATES SHE HASNT DRANK IN OVER [address] GA AND OBTAINED ORDER FOR ATIVAN. CIWA WAS OVER 20. GAVE 2MG IV ATIVAN. PT IS NOW CALM AND DOZING, DOES WAKE EASY, STATES FEELING BETTER. PLACED ON 2L NC AND CONT PULSE OX. WILL MONITOR FREQUENTLY.
--- NOTE | 2020-10-11 00:09 | NUR ---
PT IS RESTING WELL. WAKES EASILY, STILL SOMEWHAT CONFUSED/MUMBLING, BUT DENIES ANY SIG COMPLAINTS. WILL CONT TO MONITOR CLOSELY.
--- NOTE | 2020-10-11 01:49 | NUR ---
ASSIST PT TO BR, PT AMBULATED WITH WEAK GATE AND MOD ASSIST WITH 2 PEOPLE AND A GATE BELT. SLING REMAINED IN PLACE. PT WAS VERY UNPLEASANT AND CONT TO YELL AND CURSE AT STAFF. ATTEMPTED TO REDIRECT PT'S BEHAVIOR BUT UNSUCCESSFUL. GOT PT BACK TO BED AND PT FELL BACK TO SLEEP. BED ALARM IS NOW ON FOR SAFETY. CONT PULSE OX IN PLACE AND CALL LIGHT IN REACH.
[2020-10-11 01:57] LABS: U Amphetamine Screen DETECTED; U Barbituate Screen Not Detected; U Benzodiazapine Screen DETECTED; U Buprenorphine Screen Not Detected; U Cannabinoids Screen Not Detected; U Cocaine Screen Not Detected; U Methadone Screen Not Detected; U Methamphetamine Screen DETECTED; U Opiates Screen DETECTED; U Oxycodone Screen Not Detected; U Phencyclidine Screen Not Detected; U Propoxyphene Screen Not Detected
--- NOTE | 2020-10-11 03:37 | NUR ---
INSURANCE INSTRUCTOR STATED THAT PT COMPLAINING OF PAIN AFTER AMBULATING TO AND FROM BR. WENT IN TO ASSESS PAIN LEVEL AND PT IS ASLEEP. WILL RE-ASSESS WHEN PT WAKES UP. BED ALARM ON
--- NOTE | 2020-10-11 03:45 | NUR ---
PT DID WAKE UP AND STARTED YELLING OUT, WANTING PAIN MEDS AND LIBRIUM. MEDIACATED WITH 1MG DILAUDID AND 50MG LIBRIUM.
--- NOTE | 2020-10-11 04:14 | NUR ---
SUMMARY DID ASSUME CARE MIDWAY THROUGH SHIFT, PT FIRED PREVIOUS RN. PT HAS BEEN UNPLEASANT T/O MOST OF SHIFT: YELLING PROFANITIES. WAS ABLE TO GET PAIN MEDICATION CHANGED AND ATIVAN ORDERED FOR ELEVATED CIWAS. PT IS SOMEWHAT MORE COOPERATIVE. PT IS NPO, SURGICAL PACKET ON CHART. COVID SWAB WAS DONE AND NEGATIVE. WILL ATTEMPT TO START 18G IV. RIGHT ARM IS IN SLING. BED ALARM ON FOR SAFETY. CALL LIGHT IN REACH.
[2020-10-11 05:05] LABS: Hematocrit 28.7 % (33.0-51.0); Hemoglobin 9.3 g/dL (11.5-16.0); Mean Corpuscular HGB 33.6 pg (26.0-34.0); Mean Corpuscular HGB Conc 32.4 g/dL (31.5-36.5); Mean Corpuscular Volume 104 fL (80-100); Mean Platelet Volume 9.5 fL (9.1-12.4); Platelet Count 260 K/mm3 (150-400); RDW Coefficient Variation 12.1 % (11.7-14.2); RDW Standard Deviation 45.7 fL (35.1-46.3); Red Blood Cell Count 2.77 M/mm3 (3.80-5.20); White Blood Cell Count 6.35 K/mm3 (4.00-11.30)
[2020-10-11 05:22] LABS: Anion Gap 5 mmol/L (6-16); Blood Urea Nitrogen 12 mg/dL (8-24); Bun/Creatinine Ratio 21.9 (12.0-20.0); CO2, Blood 30 mmol/L (21-32); Calcium, Blood 8.9 mg/dL (8.5-10.1); Chloride, Blood 103 mmol/L (98-108); Creatinine, Blood 0.55 mg/dL (0.40-1.00); Glomerular Filtration Rate >60 (60-); Glucose, Blood 112 mg/dL (70-99); Potassium, Blood 3.6 mmol/L (3.5-5.5); Sodium, Blood 138 mmol/L (136-145)
--- NOTE | 2020-10-11 06:11 | NUR ---
SHIFT SUMMARY S/P CLOSED R FEMORAL FX, A/O TO PERSON, PLACE, SITUATION, VSS. CIWA Q4 W/ INITIAL CIWA SCORE OF 24, HOSPITALIST CALLED FOR ATIVAN ORDER, SUBSEQUENT CIWA'S AFTER LIBRIUM AND ATIVAN ADMINISTRATION <10. PT AMBULATED TO [facility] W/ 2 PERSON SBA USING GB. PT VERY DROWSY AFTER PAIN MEDICATION AND ATIVAN FALLING ASLEEP WHILE ON THE TOILET. PT EASILY AGGITATED W/ CARE, REFUSING ALL MEDICATIONS EXCEPT PAIN/LIBRIUM/ATIVAN. DOESN'T USE CALL LIGHT, CALLS/SHOUTS FOR MEDICATIONS, ATTEMPTS TO CONSOLE AND REDIRECT ARE ONLY SOMEWHAT SUCCESSFUL. PT COOPERATIVE W/ COVID TEST AND 18G IV PLACEMENT, ASKS QUESTIONS REGARDING SURGERY. TOX SCREEN RESULTS POSITIVE FOR METHAMPHETAMINES, AMPHETAMINES, OPIOIDS (SEE EMAR), AND BENZODIAZAPINES (SEE EMAR). PRESENCE OF OPIOIDS/BENZO PRIOR TO HOSPITAL ADMINISTRATION UNKNOWN. PAIN CONTROLLED CAUTIOUSLY DUE TO PT BEING VERY DROWSY (SEE EMAR). NPO SINCE MIDNIGHT FOR SURGERY, SURGICAL CHECKLIST COMPLETE. CALL LIGHT IN REACH, BED ALARM ACTIVE, WILL CONTINUE TO MONITOR AND REPORT TO ONCOMING DAY RN.
--- NOTE | 2020-10-11 07:01 | NUR ---
PT RESTING QUIETLY, RESP E/U. CONT BIOX IN PLACE. BED ALARM IN PLACE.
--- NOTE | 2020-10-11 12:25 | NUR ---
DR QUEEN BEEN TO SEE PT EARLIER TODAY. DISCUSSED PT'S STATUS. PT CONT TO BE RESTING QUIETLY. RESP E/U. CONT BIOX IN PLACE.
--- NOTE | 2020-10-11 17:30 | NUR ---
PT OUT OF ROOM FOR PROCEDURE WITH PACU/DAYSURGERY STAFF. PT BEEN NPO. DISCUSSED PT'S STATUS INCLUDING MEDICATIONS GIVEN.
--- NOTE | 2020-10-11 18:00 | NUR ---
SHIFT SUMMARY PT BEEN NPO. PT CONT TO BE OUT OF ROOM FOR PROCEDURE. PT BEEN ASSISTED WITH ADL'S. PT BEEN MED ORDERED AND PRN FOR PAIN AND ETOH W/D. SEE CIWA. WILL REPORT TO ONCOMING NURSE.
--- NOTE | 2020-10-11 19:50 | NUR ---
WHEN ASKED TO COUGH SHE DOES DO THIS , MOIST COUGH. WHEN LEFT UNDISTURBED SHE APPEARS TO SLEEP WITH LIGHT SNORING RESP BIOX ON 2 L 99% WIGGLES FINGERS SLIGHTLY CAP REFILL AT 2 SECONDS ARM SECURE WITH SLING
--- NOTE | 2020-10-12 00:10 | NUR ---
REFUSED TO GET UP TO BSC.RN NOTIFIED AND TRIED TO ASSIT IN HELPING GET PATIENT UP TO BSC.
[2020-10-12 05:31] LABS: BASOPHILS ABSOLUTE AUTO 0.01 K/mm3 (0.00-0.23); BASOPHILS PERCENT AUTO 0 % (0-2); EOSINOPHILS PERCENT AUTO 0 % (0-6); Hemoglobin 8.7 g/dL (11.5-16.0); IMMATURE GRAN ABSOLUTE AUTO 0.01 K/mm3 (0.00-0.10); IMMATURE GRAN PERCENT AUTO 0 % (0-1); LYMPHOCYTES ABSOLUTE AUTO 0.62 K/mm3 (0.84-5.20); LYMPHOCYTES PERCENT AUTO 11 % (21-46); MONOCYTES ABSOLUTE AUTO 0.92 K/mm3 (0.16-1.47); MONOCYTES PERCENT AUTO 16 % (4-13); Mean Corpuscular HGB 33.2 pg (26.0-34.0); Mean Corpuscular HGB Conc 32.2 g/dL (31.5-36.5); Mean Corpuscular Volume 103 fL (80-100); Mean Platelet Volume 9.3 fL (9.1-12.4); NEUTROPHILS ABSOLUTE AUTO 4.13 K/mm3 (1.96-9.15); NEUTROPHILS PERCENT AUTO 73 % (41-73); Platelet Count 278 K/mm3 (150-400); RDW Coefficient Variation 11.9 % (11.7-14.2); RDW Standard Deviation 44.9 fL (35.1-46.3); Red Blood Cell Count 2.62 M/mm3 (3.80-5.20); White Blood Cell Count 5.69 K/mm3 (4.00-11.30)
[2020-10-12 05:44] LABS: Anion Gap 4 mmol/L (6-16); Blood Urea Nitrogen 9 mg/dL (8-24); CO2, Blood 29 mmol/L (21-32); Calcium, Blood 8.3 mg/dL (8.5-10.1); Chloride, Blood 106 mmol/L (98-108); Creatinine, Blood 0.47 mg/dL (0.40-1.00); Glomerular Filtration Rate >60 (60-); Glucose, Blood 150 mg/dL (70-99); Magnesium, Blood 1.8 mg/dL (1.6-2.4); Potassium, Blood 4.1 mmol/L (3.5-5.5); Sodium, Blood 139 mmol/L (136-145)
--- NOTE | 2020-10-12 06:41 | NUR ---
SHIFT SUMMARY: ELIUD AROUSES EASILY AND RESPONDS WITH YELLING AND PROFANITIES. MULTIPLE ATTEMPTS AT REDIRECTION INEFFECTIVE. PT RAMBLES, MUMBLES, AND FORGETS HER TRAIN OF THOUGHT. SHE RESPONDS TO QUESTIONS WITH ANGER AND RUDENESS TO STAFF. VSS, CONTINUOUS BIOX IN PLACE. O2 VIA NASAL CANNULA @ 1.5 LPM. PT DOES REMOVE NC AT TIMES. SHE DID STAND AND TRANSFER TO THE BEDSIDE COMMODE. PT REFUSES EDUCATION. SHE IS TOLERATING PO INTAKE WELL. SHE IS LYING IN BED WITH HER CALL LIGHT IN REACH. SHE HAS NOT USED HER CALL LIGHT THIS SHIFT. WILL REPORT TO DAY SHIFT RN.
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
--- NOTE | 2020-10-12 15:52 | NUR ---
1400 PT CURSING AT STAFF STATES STOLE HER FOOD AND ARE "F...ING" STUPID", OFFERED PT FOOD AND FLUID . PT FOUND WITH BUTTER KNIFE IN BED, KNIFE REMOVED AND PT STASTES SHE IS GOING TO "MURDER SOMEONE", PLASTIC SILVERWARE AND DISPOSABLE DISHES REQUESTED ON PT FOOD TRAYS. ATIVAN GIVEN FOR AGITATION
--- NOTE | 2020-10-12 15:55 | NUR ---
7740 PT ANGRY, CURSING, STATES THAT SHE WAS NOT GIVEN PAIN MEDICATION. PT DECLINES ICE PACK TO RIGHT ARM AND DECLINES LIBRIUM. IT IS TO SOON TO OFFER NORCO. ATIVAN GIVEN. P[T OFFERED FOOD AND FLUID. CHARGE NURSE IN TO SPEAK WITH PATIENT PER PATIENT REQUEST
--- NOTE | 2020-10-12 17:09 | NUR ---
DR MCWILLIAMS HERE TO SEE PATIENT, DRESSING CHANGE TO RIGHT SHOULDER PER DR MCWILLIAMS WITH 3 AQUACEL DRESSINGS. SUTURES INTACT TO RIGHT SHOULDER, SLING IN PLACE
--- NOTE | 2020-10-12 18:04 | NUR ---
PT IRRITABLE, YELLING OUT AND CURSING THROUGHOUT SHIFT. PT THREATENING TO STAFF AND STATES SHE IS "GOING TO HURT SOMEONE OR MURDER SOMEONE" PT DOES NOT REDIRECT. BED ALARM IN PLACE PT CALLS OUT BUT DOES NOT USE CALL LIGHT. 2 PERSON ASSIST TO BATHROOM, UNSTEADY GAIT. DRESSING DRY AND INTACT TO RIGHT SHOULDER. PT WITH MULTIPLE REQUESTS FOR PAIN MEDICATION, LIBRIUM AND ATIVAN AND STATES IN SEVERE PAIN, LYING WITH EYES CLOSED AND EVEN UNLABORED RESPIRATIONS AFTER MEDS ADMINISTERED.
--- NOTE | 2020-10-12 19:56 | NUR ---
PT REFUSING TO HAVE CONTINOUS BIOX ON AT THIS TIME. EDUCATED PT ON NEED TO KEEP IT ON.
--- NOTE | 2020-10-13 06:09 | NUR ---
SHIFT SUMMARY POD 2 R HUMERUS ORIF PT HAS BEEN ALERT AT TIMES DURING SHIFT. WILL OFTEN TRAIL OFF AND FALL ASLEEP DURING CONVERSATIONS, SHE HAS REFUSED TO ANSWER SOME QUESTIONS AND WILL OCCASIONALLY SWEAR AND THREATEN STAFF. DOES NOT USE CALL LIGHT. WILL CALL OUT UNTIL STAFF ANSWERS. CONT OF BLADDER. PT CIWA REMAINED BELOW 8 DURING CHECKS USING ATIVAN PRN. PAIN MANAGED WITH 2 NORCO. PT SLEEPING IN BED AFTER TAKING. REFUSED TO WEAR CONT BIOX, NOT RECEPTIVE TO EDUCATION ABOUT TAKING DEEP BREATHS. SLING REMAINS IN PLACE. PT UP TO BSC WITH 2 PER ASSISST WITH GB. BED ALARM ON T/O SHIFT.
--- NOTE | 2020-10-13 08:16 | NUR ---
PATIENT HAS BEEN SLEEPING SINCE START OF SHIFT. RESP E/U. CONT TO MONITOR.
--- NOTE | 2020-10-13 09:05 | NUR ---
DR QUEEN HERE, PATIENT CONT SLEEPING. DISCUSSED PLAN OF CARE. WILL CALL FOR ANY CHANGES.
--- NOTE | 2020-10-13 09:37 | NUR ---
PATIENT AWAKE, GROGGY, UP TO BSC W/ ASSIST, VOIDED. UP TO SIDE OF BED FOR AM MEAL PER REQUEST, THEN PROCEEDS TO ATTEMPT TO EAT CATSUP AND SALT PACKETS. PATIENT SUBDUED, SLIGHTLY IRRITABLE. TOOK PO PAIN MEDS, REFUSED OTHER MEDS. WILL MONITOR CLOSELY.
--- NOTE | 2020-10-13 09:59 | NUR ---
10/13/20 0959 Radha Chew VERIFICATIONS: EDIT CHART.
--- NOTE | 2020-10-13 15:11 | NUR ---
PATIENT HAS CONT TO SLEEP THIS AFTERNOON, AWAKENED TO GET UP TO BSC W/ASSIST, THEN BACK TO BED. POOR PO INTAKE. IVF INFUSING PER ORDER, SITE CLEAR. VSS. CONT TO MONITOR.
--- NOTE | 2020-10-13 18:10 | NUR ---
SHIFT SUMMARY DR CARRANZA HERE LATE THIS AFTERNOON TO SEE PATIENT WHO CONTINUES TO SLEEP WHEN NOT DISTURBED. MEDICATED THIS AM FOR PAIN, NO OTHER NARCOTICS OR SEDATIVES ADMINISTERED SINCE THAT TIME. PO INTAKE POOR, IVF CONT, SITE CLEAR. SATS >90% ON RA. VSS. PATIENT AWAKENS TO USE BSC, APPEARS SOMEWHAT STEADIER ON FEET AT THAT TIME. NO ACUTE CHANGES. CONT TO MONITOR.
--- NOTE | 2020-10-13 21:12 | NUR ---
PT REFUSED TO ALLOW THIS NURSE TO PERFORM MUCH OF THE ASSESSMENT, WOULD NOT ANSWER QUESTIONS APPROPRIATLY. ROMARIO SLEEPING IN BED WITH BIOX ON. WILL MONITOR FOR CHANGES IN OXYGEN LEVELS AND LOC
--- NOTE | 2020-10-14 05:35 | NUR ---
SHIFT SUMMARY POD 3 ORIF R SHOULDER AA0X2/3 PT SLEEPING DURING MOST OF SHIFT, DIFFICULT TO ASSESS ORIENTATION LEVELS AT TIMES SHE WOULDNT ANSWER OR WOULD DISCUSS OTHER TOPICS. PAINFUL WITH MOVEMENT BUT WOULD FALL ASLEEP SOON SHE WAS BACK TO BED OR DONE MOVING. RESPIRATIONS WERE EVEN AND BIOX REMAINED ON. >92% ON 2L 02. 2 ASSISST TO BSC. PT IS UNMOVATED TO PARTICIPATE IN TREATMENTS AND CARE, STATES SHE DOES NOT WANT TO WORK WITH PHYSICAL THERAPY TODAY. ENCOURAGING PT TO DRINK FLUIDS DURING SHIFT. PT WAS MORE PLEASANT WITH STAFF TODAY. WAS THANKFUL AND APOLOGIZED FOR PREVIOUS DAYS BEHAVIOR. SHOULDER REMAINED IN SLING. REMINDED PT NOT TO USE OR REST ON R SHOULDER. PLAN IS TO WORK WITH THERAPY TODAY.
--- NOTE | 2020-10-14 09:03 | NUR ---
PATIENT AWAKE, GROGGY. TAKING AM MEAL SLOWLY, FALLING ASLEEP. PATIENT NOT FULLY COOPERATIVE WITH ASSESSMENT, REFUSES TO ANSWER SOME QUESTIONS. DR QUEEN HERE TO SEE.
--- NOTE | 2020-10-14 10:10 | NUR ---
PATIENT AGREED TO WORK WITH PT AFTER DR QUEEN IN TO SEE. UP IN CHAIR AT THIS TIME. PO PAIN MED ADMINISTERED. STAFF UNABLE TO RESTART IV, AWARE. PATIENT ASKING FOR IV MED, NOT ORDERED. REFUSED ALL SCHEDULED AM MEDS. PATIENT STATES 'I'M JUST GOING TO HERE.' PASTORAL CARE CONTACTED. VOLUNTEER VISITOR WHO IS FAMILIAR WITH PATIENT FOR A COUPLE YEARS IN TO SEE PATIENT, STATES HE WILL RETURN LATER TODAY. CONT TO MONITOR.
--- NOTE | 2020-10-14 11:08 | NUR ---
Spiritual care visit conducted. Upon receiving a spiritual care referral by ADRIENNE Pearson, I visit patient. Patient is sitting on and chair and alert. Patient closes her eyes often during conversation and when asked if she is tired or needs to rest she states that she is wide awake. Patient immediately tells me that she doesn't believe in God anymore, that she wants to and that she is not nor has ever been Sabianism (she uses profane language to emphasis that the Sabbath is when God is to be worshipped). Patient explains that she once and that it was the euphoric experience of her life. Patient states that she used to be God's warrior and that God let her down and so she does not believe anymore. Patient says that God still has her around for some reason. We discuss and dying, explore sources of value, meaning and purpose and about the love of God (including where He is in the disappointments and struggles). I normalize patient's carol struggles and desires to skip the pain of this earth, and provide spiritual guidance and a calming presence. Patient has moments of at least a willingness to look toward hope and value and also moments of outbursts of anger. I will continue to remain available to patient and family.
--- NOTE | 2020-10-14 19:00 | NUR ---
SHIFT SUMMARY PATIENT MUCH MORE ALERT TODAY THAN YESTERDAY. PATIENT HAS BEEN IRRITABLE WITH STAFF TODAY, CUSSING AND DEMANDING 'PHENERGAN, LIBRIUM, ATIVAN...I WANT A PHLEBOTIMIST TO COME PUT ANOTHER IV IN.' SPOKE WITH PATIENT SEVERAL TIMES T/O SHIFT THAT MD IS NOT AGREEABLE TO REPLACING IV AND ADMINISTERING IV MEDS. PATIENT GIVEN PO PAIN MED, 'THIS WONT DO ANY GOOD.' PATIENT DOES NOT EXHIBIT S/SX OF WITHDRAWAL, NO TREMORS, NAUSEA, ETC. 'I'LL JUST HERE.' PASTORAL CARE HERE AND 2 VISITORS ON STAFF WHO KNOW PATIENT FROM COMMUNITY CAME TO SEE HER AND BROUGHT NEW CLOTHES, ETC. PATIENT STATES SHE IS NOT ABLE TO DISCHARGE, BUT MAKES IT CLEAR THAT SHE IS UNHAPPY WITH CARE; PATIENT HAS BEEN CRITICAL OF ALL STAFF WHO HAS HELPED HER TODAY. L FINGERS SWOLLEN, PATIENT REFUSES TO ELEVATE HAND. VOIDING, NO BM. REFUSES TO ANSWER MOST QUESTIONS DURING ASSESSMENT OR REASSESSMENT. ATTEMPTED BEDSIDE REPORT, PATIENT NOW SLEEPING. POSSIBLE PLAN FOR D/C TOMORROW. FRIEND LEFT CONTACT # ON WHITE BOARD, SHE WILL P/U PATIENT IF DISCHARGED.
--- NOTE | 2020-10-15 02:15 | NUR ---
PATIENT WOKE AND STATED THAT SHE TRIED TO GET OUR ATTENTION BY SCREAMING IN HER ROOM FOR HELP. tHIS WAS NOT HEARD BY THE PERSON CHARTING OUTSIDE OF HER ROOM. PATIENT WAS THEN SEEN STANDING AT HER BEDSIDE VOIDING. sHE WAS HELPED BACK TO BED AND GIVEN A BEDBATH AND FULL LINEN CHANGE. sHE WAS UPSET THAT WE DID NOT HELP HER TO THE BATHROOM. SHE IS NOW CALM AND WAS GIVEN PO PAIN MEDICATION FOR THE INCREASED PAIN DUE TO GETTING OOB ON HER OWN. CALL LIGHT IN REACH.
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
--- NOTE | 2020-10-15 16:37 | NUR ---
PT REPORTS URINE BURNING, REQ DR TO HAVE URINE TESTED. DR NOTIFIED, REPORTS WILL PLACE ORDERS.
[2020-10-15 16:48] LABS: Source, Urine Clean Catch
[2020-10-15 17:04] LABS: Appearance, Urine Hazy (Clear); Bilirubin, Urine Neg (Neg); Blood, Urine 1+ (Neg); Color, Urine Amber (P-Yellow); Glucose Qualitative, Urine Neg (Neg); Ketones, Urine Neg (Neg); Leukocyte Esterase, Urine 2+ (Neg); Nitrite, Urine Pos (Neg); Protein, Urine Neg (Neg); Specific Gravity, Urine 1.015 (1.003-1.022); Urobilinogen, Urine 1+ (Normal); pH, Urine 6.5 (5.0-8.0)
[2020-10-15 17:16] LABS: Bacteria Many /hpf; Squamous Epithelial Cells Few /hpf (Few)
--- NOTE | 2020-10-15 17:39 | NUR ---
SHIFT SUMMARY PT EATING AND DRINKING, VOIDING. PT REPORTED URINE BURNING EARLIER. URINE SENT AFTER INFORMING DR MCNEIL. PT BEEN ASSISTED WITH ADL'S PRN. PT BEEN MED PRN FOR PAIN AND FOR HALLUCINATIONS. PT BED ALARM IN PLACE. PT UP WITH ASSIST.
--- NOTE | 2020-10-16 04:17 | NUR ---
PATIENT STARTED OFF THE SHIFT WITH AUDITORY AND VISUAL HALUCINATIONS, AGITATION, AND CONFUSION. THIS MORNING SHE IS COOPERATIVE WITH CARE. CONTINUED PAIN IN HER RT ARM AND RT SIDE OF HER NECK. RT ARM IN A SLING, AQUACEL DRESSINGS TO RT SHOULDER. PATIENT REQUIRES ASSISTANCE WITH AMBULATION TO THE BR, SHE LEANS BACK WHEN SHE WALKS AND WILL SUDDENLY LEAN A BIT TOO FAR LT OR RT. PATIENT UNDERSTANDS THAT SHE WILL TAKE MONTHS TO FULLY HEAL. CALL LIGHT IN REACH NO ACUTE CHANGES.
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
[2020-10-16] MEDS ORDERED: HYDR1TAB94 PO (10:26)
[2020-10-16] MEDS ORDERED: ACET325 PO (10:26)
[2020-10-16] MEDS ORDERED: CEFU500T30 PO (10:27)
[2020-10-16] MEDS ORDERED: Ventolin/Prove6.7 GM INH (10:27)
[2020-10-16] MEDS ORDERED: DOCU100 PO (10:27)
[2020-10-16] MEDS ORDERED: Pyridium100 MG PO (10:28)
[2020-10-16] MEDS ORDERED: ONDA4 PO (10:28)
[2020-10-16] MEDS ORDERED: VISBIOME PROBIOTIC PO (10:30)
== END 2020-10-16 11:11 | disposition home or self-care (01) | DRG 493 ==
LOC: ER 10:51 → SURS 14:57
PROVIDERS: Family Medicine; Nurse Practitioner Acute Care; Orthopaedic Surgery; ADMIT Internal Medicine
PROC: 0PSF36Z Reposition Right Humeral Shaft with Intramedullary Internal Fixation Device, Percutaneous Approach (ICD-10-PCS; principal; 2020-10-11 17:00)
DX: S42.211A Unspecified displaced fracture of surgical neck of right humerus, initial encounter for closed fracture (principal); S22.41XA Multiple fractures of ribs, right side, initial encounter for closed fracture; F10.230 Alcohol dependence with withdrawal, uncomplicated; F15.10 Other stimulant abuse, uncomplicated; Z59.0 Homelessness; J45.909 Unspecified asthma, uncomplicated; I10 Essential (primary) hypertension; Y04.2XXA Assault by strike against or bumped into by another person, initial encounter; Z66 Do not resuscitate; Z91.19 Patient's noncompliance with other medical treatment and regimen
CPT/HCPCS: 36415; 73030; 73060; 73200; 76377; 80048; 80053; 81001; 83735; 84100; 85025; 85027; 85610; 87077; 87086; 87186; 94762; 96374; 96375; 97110; 97162; 97166; 97535; 99285-25; A9270-GY; C1713; C1769; G0480; J0690; J1100; J1170; J1650; J2060; J2250; J2405; J2704; J2710; J3010; J3370; J3411; J3475; J7042; J7120; U0004

== ENCOUNTER 2020-10-22 13:20 | Emergency (ER) | payer OTHER ==
[~2020-10-22] VITALS: Ht 162.6 cm; Wt 54.4 kg
[~2020-10-22 13:20] MED LIST changes: +CEFU500T30 PO; +DOCU100 PO; +ONDA4 PO; +VISBIOME PROBIOTIC PO; +Ventolin/Prove6.7 GM INH
== END 2020-10-22 14:19 | disposition home or self-care (01) ==
LOC: ER 13:20
DX: G89.18 Other acute postprocedural pain (principal); M79.601 Pain in right arm; Z96.698 Presence of other orthopedic joint implants; Z88.8 Allergy status to other drugs, medicaments and biological substances; Z88.6 Allergy status to analgesic agent; Z79.899 Other long term (current) drug therapy; Z87.891 Personal history of nicotine dependence
CPT/HCPCS: 99284

== ENCOUNTER 2020-10-23 17:47 | Emergency (ER) | payer OTHER ==
[~2020-10-23] VITALS: Ht 162.6 cm; Wt 52.2 kg
== END 2020-10-23 18:47 | disposition home or self-care (01) ==
LOC: ER 17:47
DX: F10.129 Alcohol abuse with intoxication, unspecified (principal); Z87.891 Personal history of nicotine dependence; Z79.899 Other long term (current) drug therapy; Z88.5 Allergy status to narcotic agent; Z88.8 Allergy status to other drugs, medicaments and biological substances; Z87.442 Personal history of urinary calculi
CPT/HCPCS: 99284

== ENCOUNTER 2020-10-25 17:57 | Emergency (ER) | payer OTHER ==
[~2020-10-25] VITALS: Ht 165.1 cm; Wt 68.0 kg
== END 2020-10-25 22:35 | disposition home or self-care (01) ==
LOC: ER 17:57
DX: G89.18 Other acute postprocedural pain (principal); M25.511 Pain in right shoulder; Z87.891 Personal history of nicotine dependence
CPT/HCPCS: 99284; A9270-GY

== ENCOUNTER 2020-11-01 07:47 | Emergency (ER) | payer OTHER ==
[~2020-11-01] VITALS: Ht 167.6 cm; Wt 59.0 kg
== END 2020-11-01 11:38 | disposition home or self-care (01) ==
LOC: ER 07:47
DX: T68.XXXA Hypothermia, initial encounter (principal); R45.1 Restlessness and agitation; Z59.0 Homelessness; Z88.5 Allergy status to narcotic agent; Z88.6 Allergy status to analgesic agent; Z87.891 Personal history of nicotine dependence
CPT/HCPCS: 99284

== ENCOUNTER 2020-11-10 11:11 | Emergency (ER) | payer OTHER ==
[~2020-11-10] VITALS: Ht 165.1 cm; Wt 54.4 kg
== END 2020-11-10 12:33 | disposition home or self-care (01) ==
LOC: ER 11:11
DX: G89.18 Other acute postprocedural pain (principal); M79.601 Pain in right arm; Z48.02 Encounter for removal of sutures; Z88.6 Allergy status to analgesic agent; Z79.899 Other long term (current) drug therapy; Z87.891 Personal history of nicotine dependence
CPT/HCPCS: 99283; A9270

== ENCOUNTER 2021-01-14 02:22 | Emergency (ER) | payer OTHER ==
[~2021-01-14] VITALS: Ht 165.1 cm; Wt 49.9 kg
[~2021-01-14 02:22] MED LIST changes: +IBUP800 PO
== END 2021-01-14 02:40 | disposition home or self-care (01) ==
LOC: ER 02:22
DX: S05.11XA Contusion of eyeball and orbital tissues, right eye, initial encounter (principal); F10.129 Alcohol abuse with intoxication, unspecified; Z88.8 Allergy status to other drugs, medicaments and biological substances; Z88.5 Allergy status to narcotic agent; Z87.891 Personal history of nicotine dependence; Z87.442 Personal history of urinary calculi; Y04.2XXA Assault by strike against or bumped into by another person, initial encounter
CPT/HCPCS: 99283

== ENCOUNTER 2021-02-05 13:59 | Emergency (ER) | payer OTHER ==
[~2021-02-05] VITALS: Ht 160 cm; Wt 65.8 kg
== END 2021-02-05 14:12 ==
LOC: ER 13:59
DX: F10.129 Alcohol abuse with intoxication, unspecified (principal); Z88.6 Allergy status to analgesic agent; Z88.8 Allergy status to other drugs, medicaments and biological substances; Z87.442 Personal history of urinary calculi; Z87.891 Personal history of nicotine dependence
CPT/HCPCS: 99283

== ENCOUNTER → 2021-09-21 | Outpatient (CLI) | payer OTHER ==
[2021-09-28 17:11] LABS: CHLAMYDIA BY NAA Negative (Negative); GONOCOCCUS BY NAA Negative (Negative); HPV 16 Negative (Negative); HPV 18 Negative (Negative); HPV OTHER HR TYPES Negative (Negative); TRICH VAG BY NAA Negative (Negative)
== END ==
LOC: LAB SHORT 14:30 → LAB 14:30
PROVIDERS: Nurse Practitioner Family
DX: Z01.419 Encounter for gynecological examination (general) (routine) without abnormal findings (principal); Z88.8 Allergy status to other drugs, medicaments and biological substances
CPT/HCPCS: 87491; 87591; 87624; 87661; G0123

== ENCOUNTER 2021-10-12 11:05 | Day surgery (SDC) | payer OTHER ==
[~2021-10-12] VITALS: Ht 165.1 cm; Wt 60.9 kg
[~2021-10-12 11:05] MED LIST changes: +ACET500; +CELE200; +DICLOFENAC SOD100 GM; +Diflucan150 MG; +HYDHCL25; +IBUP600; +MAGNESIUM OXID500 MG; +POTA10T; +VITAMIN D5000 UNIT
--- NOTE | 2021-10-12 11:16 | NUR ---
10/12/21 1116 Julia Kelley CALL LIGHT WITHIN REACH
== END 2021-10-12 13:38 | disposition home or self-care (01) ==
LOC: ORSCSDS 11:05
PROVIDERS: Ophthalmology
PROC: 08RJ3JZ Replacement of Right Lens with Synthetic Substitute, Percutaneous Approach (ICD-10-PCS; principal; 2021-10-12 12:30)
DX: H25.11 Age-related nuclear cataract, right eye (principal)
CPT/HCPCS: J2001; J2250; J3010; J3301; J7040; V2632

== ENCOUNTER 2021-11-02 09:05 | Day surgery (SDC) | payer OTHER ==
[~2021-11-02] VITALS: Ht 165.1 cm; Wt 62.0 kg
--- NOTE | 2021-11-02 09:44 | NUR ---
11/02/21 0944 MARLEY ARENAS TETRACAINE DROP INSTILLED AT 0938 ERICHDGETT INSERTED AT 0939
--- NOTE | 2021-11-02 11:34 | NUR ---
11/02/21 1134 Julia Kelley PT AWAKE, ALERT, PT TALKING AND TELLING STORIES. VS WNL. PT STATES SHE IS READY TO GO HOME.
== END 2021-11-02 11:40 | disposition home or self-care (01) ==
LOC: ORSCSDS 09:05
PROVIDERS: Ophthalmology
PROC: 08RK3JZ Replacement of Left Lens with Synthetic Substitute, Percutaneous Approach (ICD-10-PCS; principal; 2021-11-02 10:30)
DX: H25.12 Age-related nuclear cataract, left eye (principal); I10 Essential (primary) hypertension; J45.909 Unspecified asthma, uncomplicated; F41.9 Anxiety disorder, unspecified; F90.9 Attention-deficit hyperactivity disorder, unspecified type; F43.10 Post-traumatic stress disorder, unspecified; G40.909 Epilepsy, unspecified, not intractable, without status epilepticus; Z79.899 Other long term (current) drug therapy
CPT/HCPCS: J2001; J2250; J3010; J3301; J7040; V2632

== ENCOUNTER → 2022-01-27 | Outpatient (CLI) | payer OTHER ==
[~2022-01-27] MED LIST changes: +CATAPRES-TTS 11 EAC1; +CONSTULOSE10 GM/155 PO; +PROM12.5S PR; +XANAX0.25 MG PO
[2022-01-27 12:22] LABS: BASOPHILS ABSOLUTE AUTO 0.05 K/mm3 (0.00-0.23); BASOPHILS PERCENT AUTO 1 % (0-2); EOSINOPHILS ABSOLUTE AUTO 0.09 K/mm3 (0.00-0.68); EOSINOPHILS PERCENT AUTO 2 % (0-6); Hematocrit 45.1 % (33.0-51.0); Hemoglobin 15.1 g/dL (11.5-16.0); IMMATURE GRAN ABSOLUTE AUTO 0.01 K/mm3 (0.00-0.10); IMMATURE GRAN PERCENT AUTO 0 % (0-1); LYMPHOCYTES PERCENT AUTO 38 % (21-46); MONOCYTES ABSOLUTE AUTO 0.48 K/mm3 (0.16-1.47); MONOCYTES PERCENT AUTO 10 % (4-13); Mean Corpuscular HGB 31.8 pg (26.0-34.0); Mean Corpuscular HGB Conc 33.5 g/dL (31.5-36.5); Mean Corpuscular Volume 95 fL (80-100); Mean Platelet Volume 9.5 fL (9.1-12.4); NEUTROPHILS ABSOLUTE AUTO 2.47 K/mm3 (1.96-9.15); NEUTROPHILS PERCENT AUTO 49 % (41-73); Platelet Count 301 K/mm3 (150-400); RDW Coefficient Variation 12.6 % (11.7-14.2); RDW Standard Deviation 44.5 fL (35.1-46.3); Red Blood Cell Count 4.75 M/mm3 (3.80-5.20)
[2022-01-27 12:31] LABS: Alanine Aminotransfer (ALT/SGP 70 U/L (12-78); Albumin, Blood 4.4 g/dL (3.4-5.0); Albumin/Globulin Ratio 1.2 (0.8-1.8); Alk Phos 88 U/L (40-126); Anion Gap 8 mmol/L (6-16); Aspartate Aminotrans (AST/SGOT 76 U/L (12-37); Bilirubin, Total 0.4 mg/dL (0.1-1.0); Blood Urea Nitrogen 20 mg/dL (8-24); Bun/Creatinine Ratio 24.1 (12.0-20.0); CO2, Blood 28 mmol/L (21-32); Calcium, Blood 9.9 mg/dL (8.5-10.1); Chloride, Blood 103 mmol/L (98-108); Creatinine, Blood 0.83 mg/dL (0.40-1.00); Globulin, Blood 3.6 g/dL (2.2-4.0); Glomerular Filtration Rate >60 (60-); Glucose, Blood 88 mg/dL (70-99); Potassium, Blood 4.3 mmol/L (3.5-5.5); Sodium, Blood 139 mmol/L (136-145)
== END ==
LOC: LAB SHORT 12:14 → LAB 12:14
PROVIDERS: Physician Assistant
DX: R10.11 Right upper quadrant pain (principal)
CPT/HCPCS: 80053; 83690; 85025

== ENCOUNTER → 2022-01-30 | Outpatient (CLI) | payer OTHER ==
[2022-01-30 13:31] LABS: Source, Urine Clean Catch
[2022-01-30 15:19] LABS: Bilirubin, Urine Neg (Neg); Blood, Urine 1+ (Neg); Glucose Qualitative, Urine Neg (Neg); Ketones, Urine Neg (Neg); Leukocyte Esterase, Urine 3+ (Neg); Nitrite, Urine Pos (Neg); Protein, Urine 1+ (Neg); Urobilinogen, Urine NORM (Normal)
[2022-01-30 15:24] LABS: Appearance, Urine Hazy (Clear); Color, Urine Pale Yellow (P-Yellow)
[2022-01-30 15:25] LABS: Squamous Epithelial Cells Few /hpf (Few)
[2022-01-30 15:26] LABS: Bacteria Many /hpf; Mucus Light (0-Heavy)
== END ==
LOC: LAB SHORT 13:30
PROVIDERS: Nurse Practitioner Family
DX: R35.0 Frequency of micturition (principal)
CPT/HCPCS: 81001

== ENCOUNTER → 2022-02-22 | Outpatient (CLI) | payer OTHER ==
[2022-02-22 19:03] LABS: Bilirubin, Urine Neg (Neg); Blood, Urine Neg (Neg); Glucose Qualitative, Urine Neg (Neg); Ketones, Urine Neg (Neg); Leukocyte Esterase, Urine 2+ (Neg); Nitrite, Urine Neg (Neg); Protein, Urine 1+ (Neg); Urobilinogen, Urine NORM (Normal); pH, Urine 6.5 (5.0-8.0)
[2022-02-22 19:39] LABS: Appearance, Urine Clear (Clear); Color, Urine Yellow (P-Yellow)
[2022-02-22 19:40] LABS: Bacteria Mod /hpf; Red Blood Cells, Urine 0-2 /hpf (0-2); Squamous Epithelial Cells Few /hpf (Few)
== END ==
LOC: LAB SHORT 15:30 → LAB 15:30
PROVIDERS: Nurse Practitioner Family
DX: L29.9 Pruritus, unspecified (principal); R35.0 Frequency of micturition
CPT/HCPCS: 81001; 87077; 87086; 87186

== ENCOUNTER → 2022-06-14 | Outpatient (CLI) | payer OTHER ==
[2022-06-14 15:17] LABS: Source, Urine Voided
[2022-06-14 17:39] LABS: Appearance, Urine Clear (Clear); Bilirubin, Urine Neg (Neg); Blood, Urine Neg (Neg); Color, Urine Yellow (P-Yellow); Glucose Qualitative, Urine Neg (Neg); Ketones, Urine Neg (Neg); Leukocyte Esterase, Urine 3+ (Neg); Nitrite, Urine Neg (Neg); Protein, Urine Neg (Neg); Urobilinogen, Urine NORM (Normal)
[2022-06-14 17:47] LABS: Bacteria Many /hpf; Red Blood Cells, Urine 0-2 /hpf (0-2); Squamous Epithelial Cells Few /hpf (Few)
== END | disposition home or self-care (01) ==
LOC: LAB 15:15 → LAB SHORT 15:15
PROVIDERS: Nurse Practitioner Family
DX: R30.0 Dysuria (principal)
CPT/HCPCS: 81001

== ENCOUNTER 2022-07-06 14:32 | Emergency (ER) | payer OTHER ==
[~2022-07-06] VITALS: Ht 165.1 cm; Wt 70.8 kg
== END 2022-07-06 20:19 | disposition home or self-care (01) ==
LOC: ER 14:32
DX: M79.605 Pain in left leg (principal); Z87.891 Personal history of nicotine dependence; Z79.899 Other long term (current) drug therapy
CPT/HCPCS: 93971; A9270

== ENCOUNTER → 2022-10-08 | Outpatient (CLI) | payer OTHER ==
[2022-10-10 14:10] LABS: HPV 16 Negative (Negative); HPV 18 Negative (Negative); HPV OTHER HR TYPES Negative (Negative)
== END | disposition home or self-care (01) ==
LOC: LAB 17:05 → LAB SHORT 17:05
PROVIDERS: Nurse Practitioner Family
DX: Z01.419 Encounter for gynecological examination (general) (routine) without abnormal findings (principal)
CPT/HCPCS: 87624; G0123

== ENCOUNTER → 2023-05-08 | Outpatient (CLI) | payer OTHER ==
[2023-05-10 09:53] LABS: Stool Occult Bld Immuno 1 Negative (NEGATIVE)
== END | disposition home or self-care (01) ==
LOC: LAB 12:00 → LAB SHORT 12:00
PROVIDERS: Nurse Practitioner Family
DX: Z12.11 Encounter for screening for malignant neoplasm of colon (principal)
CPT/HCPCS: G0328

== ENCOUNTER → 2023-06-17 | Outpatient (CLI) | payer OTHER ==
[2023-06-17 14:45] LABS: Source, Urine Clean Catch
[2023-06-17 15:36] LABS: Appearance, Urine Clear (Clear); Bilirubin, Urine Neg (Neg); Blood, Urine 1+ (Neg); Color, Urine Yellow (P-Yellow); Glucose Qualitative, Urine Neg (Neg); Ketones, Urine Neg (Neg); Leukocyte Esterase, Urine 3+ (Neg); Nitrite, Urine Pos (Neg); Protein, Urine 1+ (Neg); Urobilinogen, Urine NORM (Normal)
[2023-06-17 15:46] LABS: Bacteria Many /hpf; Red Blood Cells, Urine 0-2 /hpf (0-2); Squamous Epithelial Cells Few /hpf (Few); Transitional Epithelial Cells Few /hpf (0-Rare); White Blood Cells, Urine 25-50 /hpf (0-5)
== END | disposition home or self-care (01) ==
LOC: LAB 14:44 → LAB SHORT 14:44
PROVIDERS: Nurse Practitioner Family
DX: N39.0 Urinary tract infection, site not specified (principal)
CPT/HCPCS: 81001; 87077; 87086; 87186

== ENCOUNTER → 2023-07-25 | Outpatient (CLI) | payer OTHER ==
[2023-07-25 17:07] LABS: Source, Urine Clean Catch
[2023-07-25 17:58] LABS: Appearance, Urine Clear (Clear); Bilirubin, Urine Neg (Neg); Blood, Urine Neg (Neg); Color, Urine Yellow (P-Yellow); Glucose Qualitative, Urine Neg (Neg); Ketones, Urine Neg (Neg); Leukocyte Esterase, Urine 1+ (Neg); Nitrite, Urine Neg (Neg); Protein, Urine 1+ (Neg); Specific Gravity, Urine 1.015 (1.003-1.022); Urobilinogen, Urine NORM (Normal)
[2023-07-25 18:06] LABS: Bacteria Rare /hpf; Red Blood Cells, Urine 0-2 /hpf (0-2); Squamous Epithelial Cells Few /hpf (Few)
== END ==
LOC: LAB SHORT 17:03
PROVIDERS: Nurse Practitioner Family
DX: N39.0 Urinary tract infection, site not specified (principal)
CPT/HCPCS: 81001; 87086

== ENCOUNTER → 2023-09-26 | Outpatient (CLI) | payer OTHER ==
[2023-09-26 15:57] LABS: Source, Urine Clean Catch
[2023-09-26 17:14] LABS: Appearance, Urine Cloudy (Clear); Bilirubin, Urine Neg (Neg); Blood, Urine Neg (Neg); Color, Urine Yellow (P-Yellow); Glucose Qualitative, Urine Neg (Neg); Ketones, Urine Neg (Neg); Leukocyte Esterase, Urine 3+ (Neg); Nitrite, Urine Pos (Neg); Protein, Urine 1+ (Neg); Specific Gravity, Urine 1.015 (1.003-1.022); Urobilinogen, Urine NORM (Normal)
[2023-09-26 17:27] LABS: Calcium Oxalate Crystals Many /hpf
[2023-09-26 17:28] LABS: Bacteria Many /hpf; Red Blood Cells, Urine 0-2 /hpf (0-2); Squamous Epithelial Cells Mod /hpf (Few); White Blood Cells, Urine 25-50 /hpf (0-5)
== END ==
LOC: LAB SHORT 15:55 → LAB 15:55
PROVIDERS: Family Medicine
DX: N30.00 Acute cystitis without hematuria (principal)
CPT/HCPCS: 81001; 87077; 87086; 87186

== ENCOUNTER → 2023-11-28 | Outpatient (CLI) | payer OTHER ==
[2023-11-28 13:58] LABS: Source, Urine Clean Catch
[2023-11-28 15:43] LABS: Appearance, Urine Hazy (Clear); Bilirubin, Urine Neg (Neg); Blood, Urine Neg (Neg); Color, Urine Yellow (P-Yellow); Glucose Qualitative, Urine Neg (Neg); Ketones, Urine Neg (Neg); Leukocyte Esterase, Urine 3+ (Neg); Nitrite, Urine Pos (Neg); Protein, Urine Neg (Neg); Urobilinogen, Urine NORM (Normal)
[2023-11-28 16:10] LABS: Bacteria Many /hpf; Red Blood Cells, Urine 0-2 /hpf (0-2); Squamous Epithelial Cells Few /hpf (Few)
== END | disposition home or self-care (01) ==
LOC: LAB 13:57 → LAB SHORT 13:57 → EDSTATUS 14:13
PROVIDERS: Obstetrics & Gynecology
DX: N34.2 Other urethritis (principal)
CPT/HCPCS: 81001; 87077; 87086; 87186

== ENCOUNTER → 2024-01-09 | Outpatient (CLI) | payer OTHER | LOC: PLD 07:51 → LAB SHORT 07:51 | DX: D04.61 Carcinoma in situ of skin of right upper limb, including shoulder (principal) | CPT/HCPCS: 88305 ==

== ENCOUNTER → 2024-04-30 | Outpatient (CLI) | payer OTHER | LOC: LAB 08:22 → LAB SHORT 08:22 | DX: L90.8 Other atrophic disorders of skin (principal); L57.8 Other skin changes due to chronic exposure to nonionizing radiation | CPT/HCPCS: 88305 ==

== ENCOUNTER → 2024-05-13 | Outpatient (CLI) | payer OTHER ==
[2024-05-15 11:07] LABS: Stool Occult Bld Immuno 1 Negative (NEGATIVE)
== END | disposition home or self-care (01) ==
LOC: LAB 16:45 → LAB SHORT 16:45
PROVIDERS: Family Medicine
DX: Z12.11 Encounter for screening for malignant neoplasm of colon (principal)
CPT/HCPCS: G0328

== ENCOUNTER → 2024-06-17 | Outpatient (CLI) | payer OTHER ==
[2024-06-17 16:14] LABS: Source, Urine Clean Catch
[2024-06-17 19:04] LABS: Bilirubin, Urine Neg (Neg); Blood, Urine Neg (Neg); Color, Urine Yellow (P-Yellow); Glucose Qualitative, Urine Neg (Neg); Ketones, Urine Neg (Neg); Leukocyte Esterase, Urine 3+ (Neg); Nitrite, Urine Pos (Neg); Protein, Urine Neg (Neg); Specific Gravity, Urine 1.015 (1.003-1.022); Urobilinogen, Urine NORM (Normal)
[2024-06-17 19:23] LABS: Appearance, Urine Hazy (Clear)
[2024-06-17 19:24] LABS: Bacteria Many /hpf; Mucus Light (0-Heavy); Red Blood Cells, Urine 0-2 /hpf (0-2); Squamous Epithelial Cells Few /hpf (Few); Transitional Epithelial Cells Few /hpf (0-Rare); White Blood Cells, Urine 25-50 /hpf (0-5)
== END | disposition home or self-care (01) ==
LOC: LAB SHORT 16:12 → LAB 16:12
PROVIDERS: Obstetrics & Gynecology
DX: N34.2 Other urethritis (principal)
CPT/HCPCS: 81001; 87077; 87086; 87186

== ENCOUNTER 2024-07-28 20:33 | Emergency (ER) | payer OTHER ==
[~2024-07-28] VITALS: Ht 165.1 cm; Wt 73.5 kg
[2024-07-28 22:14] LABS: Albumin, Blood 3.7 g/dL (3.4-5.0); Bilirubin, Total 0.4 mg/dL (0.1-1.0); Bun/Creatinine Ratio 21.3 (12.0-20.0); Calcium, Blood 9.4 mg/dL (8.5-10.1); Creatinine, Blood 0.75 mg/dL (0.40-1.00); Globulin, Blood 3.6 g/dL (2.2-4.0); Potassium, Blood 3.9 mmol/L (3.5-5.5); Total Protein, Blood 7.3 g/dL (6.4-8.2)
[2024-07-28 22:17] LABS: BASOPHILS ABSOLUTE AUTO 0.04 K/mm3 (0.00-0.23); BASOPHILS PERCENT AUTO 0 % (0-2); EOSINOPHILS ABSOLUTE AUTO 0.08 K/mm3 (0.00-0.68); EOSINOPHILS PERCENT AUTO 1 % (0-6); Hematocrit 38.7 % (33.0-51.0); Hemoglobin 12.6 g/dL (11.5-16.0); IMMATURE GRAN ABSOLUTE AUTO 0.08 K/mm3 (0.00-0.10); IMMATURE GRAN PERCENT AUTO 1 % (0-1); LYMPHOCYTES ABSOLUTE AUTO 2.54 K/mm3 (0.84-5.20); LYMPHOCYTES PERCENT AUTO 27 % (21-46); MONOCYTES ABSOLUTE AUTO 0.81 K/mm3 (0.16-1.47); MONOCYTES PERCENT AUTO 9 % (4-13); Mean Corpuscular HGB 31.6 pg (26.0-34.0); Mean Corpuscular HGB Conc 32.6 g/dL (31.5-36.5); Mean Corpuscular Volume 97 fL (80-100); Mean Platelet Volume 8.3 fL (9.1-12.4); NEUTROPHILS ABSOLUTE AUTO 6.03 K/mm3 (1.96-9.15); NEUTROPHILS PERCENT AUTO 63 % (41-73); Platelet Count 299 K/mm3 (150-400); RDW Coefficient Variation 12.5 % (11.7-14.2); RDW Standard Deviation 43.6 fL (35.1-46.3); Red Blood Cell Count 3.99 M/mm3 (3.80-5.20); White Blood Cell Count 9.58 K/mm3 (4.00-11.30)
[2024-07-28 22:38] LABS: Source, Urine Clean Catch
[2024-07-28 22:45] LABS: Appearance, Urine Clear (Clear); Bilirubin, Urine Neg (Neg); Blood, Urine Neg (Neg); Color, Urine Yellow (P-Yellow); Glucose Qualitative, Urine Neg (Neg); Ketones, Urine Neg (Neg); Leukocyte Esterase, Urine 2+ (Neg); Nitrite, Urine Neg (Neg); Protein, Urine Neg (Neg); Specific Gravity, Urine 1.005 (1.003-1.022); Urobilinogen, Urine NORM (Normal)
[2024-07-28 23:05] LABS: Bacteria Many /hpf; Red Blood Cells, Urine 0-2 /hpf (0-2); Squamous Epithelial Cells Rare /hpf (Few); White Blood Cells, Urine 0-2 /hpf (0-5)
[2024-07-29] MEDS ORDERED: FentaNYL Citrate 50 MCG/ML 2 ML Injection IV ONE (00:35)
[2024-07-29] MEDS ORDERED: NS 1,000 ML IV SCH (02:50)
[2024-07-29] MEDS ORDERED: HYDROmorphone HCl/Pf 1MG SYR IV ONE (02:50)
[2024-07-29] MEDS ORDERED: HYDR1TAB94 PO (02:54)
[2024-07-29] MEDS ORDERED: PROM12.5S PR (02:54)
[2024-07-29 03:00] VITALS: BP 122/71
[2024-07-29] MEDS ORDERED: Metoclopramide HCl 5MG / ML 2ML Vial IV ONE (03:00)
== END 2024-07-29 03:51 | disposition home or self-care (01) ==
LOC: ER 20:33
PROVIDERS: Student in an Organized Health Care Education/Training Program
DX: K52.9 Noninfective gastroenteritis and colitis, unspecified (principal); Z87.891 Personal history of nicotine dependence; M19.90 Unspecified osteoarthritis, unspecified site; Z79.899 Other long term (current) drug therapy; Z88.5 Allergy status to narcotic agent; Z88.1 Allergy status to other antibiotic agents; Z88.8 Allergy status to other drugs, medicaments and biological substances
CPT/HCPCS: 74177; 80053; 81001; 85025; 87077; 87086; 87186; 93005; 93010; 96361; 96374-59; 96375; 99284-25; J1170; J2765; J3010; J7030; Q9967

== ENCOUNTER → 2024-09-23 | Outpatient (CLI) | payer OTHER ==
[2024-10-07 14:13] LABS: HPV HIGH RISK BY TMA Not Detected; HPV SOURCE Cervical/Vag
== END ==
LOC: LAB SHORT 17:28 → LAB 17:28
PROVIDERS: Obstetrics & Gynecology
DX: Z01.419 Encounter for gynecological examination (general) (routine) without abnormal findings (principal)
CPT/HCPCS: 87624; G0123

== ENCOUNTER 2024-11-01 09:52 | Inpatient (IN) | payer OTHER ==
[~2024-11-01] VITALS: Ht 165.1 cm; Wt 81.7 kg
[2024-11-01] MEDS ORDERED: NS 1,000 ML IV SCH ×2 (10:10→12:50)
[2024-11-01 10:44] LABS: Base Excess Venous -2.8 mmol/L; Bicarbonate Venous 23.4 mmol/L (24.0-30.0); PCO2 Venous 20.9 mmHg (38-42)
[2024-11-01 10:45] LABS: BASOPHILS ABSOLUTE AUTO 0.09 K/mm3 (0.00-0.23); BASOPHILS PERCENT AUTO 1 % (0-2); EOSINOPHILS ABSOLUTE AUTO 0.05 K/mm3 (0.00-0.68); EOSINOPHILS PERCENT AUTO 0 % (0-6); Hematocrit 31.4 % (33.0-51.0); Hemoglobin 11.1 g/dL (11.5-16.0); IMMATURE GRAN ABSOLUTE AUTO 0.06 K/mm3 (0.00-0.10); IMMATURE GRAN PERCENT AUTO 1 % (0-1); LYMPHOCYTES PERCENT AUTO 24 % (21-46); MONOCYTES ABSOLUTE AUTO 1.08 K/mm3 (0.16-1.47); MONOCYTES PERCENT AUTO 9 % (4-13); Mean Corpuscular HGB Conc 35.4 g/dL (31.5-36.5); Mean Corpuscular Volume 91 fL (80-100); Mean Platelet Volume 9.2 fL (9.1-12.4); NEUTROPHILS ABSOLUTE AUTO 7.77 K/mm3 (1.96-9.15); NEUTROPHILS PERCENT AUTO 66 % (41-73); Platelet Count 476 K/mm3 (150-400); RDW Coefficient Variation 13.3 % (11.7-14.2); RDW Standard Deviation 43.7 fL (35.1-46.3); Red Blood Cell Count 3.47 M/mm3 (3.80-5.20); White Blood Cell Count 11.85 K/mm3 (4.00-11.30); pH Blood Venous 7.57 (7.34-7.37)
[2024-11-01 10:50] LABS: Source, Urine Clean Catch
[2024-11-01 10:55] LABS: Appearance, Urine Cloudy (Clear); Blood, Urine Neg (Neg); Color, Urine Yellow (P-Yellow); Glucose Qualitative, Urine Neg (Neg); Ketones, Urine 3+ (Neg); Leukocyte Esterase, Urine 3+ (Neg); Nitrite, Urine Neg (Neg); Protein, Urine 2+ (Neg); Specific Gravity, Urine 1.015 (1.003-1.022); Urobilinogen, Urine 1+ (Normal)
[2024-11-01 11:00] LABS: Bilirubin, Urine 1+ (Neg)
[2024-11-01 11:01] LABS: Amorphous Mod (0-Heavy); Bacteria Many /hpf; Red Blood Cells, Urine 0-2 /hpf (0-2); Squamous Epithelial Cells Few /hpf (Few)
[2024-11-01] MEDS ORDERED: CefTRIAXone Sodium 1,000 MG in NS 100 ML IV ONE (11:05)
[2024-11-01 11:06] LABS: U Amphetamine Screen DETECTED; U Barbituate Screen Not Detected; U Benzodiazapine Screen DETECTED; U Buprenorphine Screen Not Detected; U Cannabinoids Screen Not Detected; U Cocaine Screen Not Detected; U Methadone Screen Not Detected; U Methamphetamine Screen Not Detected; U Opiates Screen Not Detected; U Oxycodone Screen Not Detected; U Phencyclidine Screen Not Detected
[2024-11-01 11:07] LABS: Alanine Aminotransfer (ALT/SGP 16 U/L (12-78); Albumin, Blood 3.5 g/dL (3.4-5.0); Albumin/Globulin Ratio 0.9 (0.8-1.8); Alk Phos 65 U/L (50-136); Anion Gap 19 mmol/L (3-11); Aspartate Aminotrans (AST/SGOT 33 U/L (12-37); Bilirubin, Total 0.6 mg/dL (0.1-1.0); Blood Urea Nitrogen 29 mg/dL (8-24); Bun/Creatinine Ratio 19.7 (12.0-20.0); CO2, Blood 18 mmol/L (21-32); Calcium, Blood 9.5 mg/dL (8.5-10.1); Chloride, Blood 111 mmol/L (98-108); Creatinine, Blood 1.47 mg/dL (0.40-1.00); Ethanol (Alcohol), Blood, Med <3 mg/dL; Glomerular Filtration Rate 40 (60-); Glucose, Blood 97 mg/dL (70-99); Sodium, Blood 145 mmol/L (136-145); Total Protein, Blood 7.5 g/dL (6.4-8.2)
[2024-11-01] MEDS ORDERED: FLU VACC TS2024-25(6MOS UP)/PF 45 MCG/0.5 ML SYRINGE IM ONE (13:00)
[2024-11-01] MEDS ORDERED: Potassium Chl 20MEQ/Water100ML 100 ML IV SCH (13:00)
[2024-11-01] MEDS ORDERED: Metoclopramide HCl 5MG / ML 2ML Vial IV PRN (13:15)
[2024-11-01] MEDS ORDERED: Polyethylene Glycol 3350 17 gm PO PRN (13:20)
[2024-11-01] MEDS ORDERED: OxyCODONE HCL 5 MG TAB PO PRN (13:20)
[2024-11-01] MEDS ORDERED: Acetaminophen 325 MG TABLET PO PRN (13:20)
[2024-11-01] MEDS ORDERED: Potassium Phosphate Dibasic 15 MM in Dextrose 5% 250 ML IV SCH (13:30)
[2024-11-01 17:10] VITALS: BP 149/78
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
[2024-11-01 19:38] VITALS: BP 147/78
[2024-11-01] MEDS ORDERED: Lactobacil 2-S.Thermo-Bifido 1 1 Cap PO SCH (21:00)
[2024-11-02 02:25] VITALS: BP 149/73
--- NOTE | 2024-11-02 03:24 | NUR ---
NEW T-ORDER FROM THE ON-CALL HOSPITALIST : ADVANCE DIET TOLERATED. DISCONTINUE NPO. GOAL IS SOFT BITE SIZE DIET. ENTERED TO [employer].
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
[2024-11-02] MEDS ORDERED: NS 250 ML IV PRN (04:35)
[2024-11-02 06:40] LABS: BASOPHILS ABSOLUTE AUTO 0.08 K/mm3 (0.00-0.23); BASOPHILS PERCENT AUTO 1 % (0-2); EOSINOPHILS ABSOLUTE AUTO 0.29 K/mm3 (0.00-0.68); EOSINOPHILS PERCENT AUTO 3 % (0-6); Hematocrit 27.4 % (33.0-51.0); Hemoglobin 9.3 g/dL (11.5-16.0); IMMATURE GRAN ABSOLUTE AUTO 0.04 K/mm3 (0.00-0.10); IMMATURE GRAN PERCENT AUTO 0 % (0-1); LYMPHOCYTES ABSOLUTE AUTO 2.27 K/mm3 (0.84-5.20); LYMPHOCYTES PERCENT AUTO 24 % (21-46); MONOCYTES ABSOLUTE AUTO 0.88 K/mm3 (0.16-1.47); MONOCYTES PERCENT AUTO 9 % (4-13); Mean Corpuscular HGB 32.2 pg (26.0-34.0); Mean Corpuscular HGB Conc 33.9 g/dL (31.5-36.5); Mean Corpuscular Volume 95 fL (80-100); Mean Platelet Volume 9.4 fL (9.1-12.4); NEUTROPHILS ABSOLUTE AUTO 6.08 K/mm3 (1.96-9.15); NEUTROPHILS PERCENT AUTO 63 % (41-73); Platelet Count 373 K/mm3 (150-400); RDW Coefficient Variation 13.6 % (11.7-14.2); Red Blood Cell Count 2.89 M/mm3 (3.80-5.20); White Blood Cell Count 9.64 K/mm3 (4.00-11.30)
[2024-11-02 07:08] LABS: Albumin, Blood 2.7 g/dL (3.4-5.0); Albumin/Globulin Ratio 0.8 (0.8-1.8); Bilirubin, Total 0.4 mg/dL (0.1-1.0); Bun/Creatinine Ratio 22.1 (12.0-20.0); Calcium, Blood 8.3 mg/dL (8.5-10.1); Creatinine, Blood 0.73 mg/dL (0.40-1.00); Globulin, Blood 3.4 g/dL (2.2-4.0); Potassium, Blood 3.1 mmol/L (3.5-5.5); Total Protein, Blood 6.1 g/dL (6.4-8.2)
[2024-11-02 07:55] VITALS: BP 143/55
[2024-11-02] MEDS ORDERED: Potassium Chl 20MEQ/Water100ML 100 ML IV SCH (08:20)
[2024-11-02 08:42] LABS: Magnesium, Blood 1.5 mg/dL (1.6-2.4); Phosphorus, Blood 2.7 mg/dL (2.5-4.9)
[2024-11-02] MEDS ORDERED: CefTRIAXone Sodium 1,000 MG in NS 100 ML IV SCH (09:00)
[2024-11-02] MEDS ORDERED: Enoxaparin 40 MG/0.4 ML SYR SC SCH (09:00)
[2024-11-02 09:17] LABS: Base Excess Venous -7.3 mmol/L; Bicarbonate Venous 19.4 mmol/L (24.0-30.0); pH Blood Venous 7.44 (7.34-7.37)
[2024-11-02] MEDS ORDERED: Potassium Chloride 20 MEQ TabCR PO ONE (14:05)
[2024-11-02] MEDS ORDERED: Dextrose 5% 500 ML IV SCH (14:10)
[2024-11-02] MEDS ORDERED: Mag Sulfate 1 GM/D5% 100ML 100 ML IV STA (14:10)
[2024-11-02 15:08] VITALS: BP 144/83
--- NOTE | 2024-11-02 19:35 | NUR ---
report received verified, a/o x 3 pt understands the day and that she is in the hospital but has been having conversations with people that are not in room. other than that pt is very pleasent and cooperative with care.
--- NOTE | 2024-11-02 19:36 | NUR ---
new powerglide placed by Adam Clay in the right upper arm, pt maryann well, left pg was discontinued due to infiltration, no harm was noted to left arm.
[2024-11-02 20:57] VITALS: BP 141/97
[2024-11-03] MEDS ORDERED: ALPRAZolam 0.5 MG Tab PO PRN (01:05)
[2024-11-03 03:51] VITALS: BP 144/83
--- NOTE | 2024-11-03 06:06 | NUR ---
Shift Summary Pt AOx3 with significant delusions. She spoke of working with Ricardo to [employer]oney demons and working to save creatures of the earth. At one point she c/o heavy anxiety and asked for her home anxiety medication which she said her MD approved her for 'two pills'. Her med rec showed 0.5mg Xanax daily for anxiety which had not been added to her EMAR. I called the hospitalist who ordered that medication restarted as kidney function was normal. One hour after taking this medication pt slept very well t/o the rest of the night, deeply asleep and difficult to wake up for more than minute. She finished her IV infusion of dextrose. Underwood catheter in place for retention. Attends changed PRN.
[2024-11-03 07:36] LABS: BASOPHILS ABSOLUTE AUTO 0.07 K/mm3 (0.00-0.23); BASOPHILS PERCENT AUTO 1 % (0-2); EOSINOPHILS ABSOLUTE AUTO 0.37 K/mm3 (0.00-0.68); EOSINOPHILS PERCENT AUTO 5 % (0-6); Hematocrit 29.4 % (33.0-51.0); Hemoglobin 10.1 g/dL (11.5-16.0); IMMATURE GRAN ABSOLUTE AUTO 0.03 K/mm3 (0.00-0.10); IMMATURE GRAN PERCENT AUTO 0 % (0-1); LYMPHOCYTES ABSOLUTE AUTO 2.32 K/mm3 (0.84-5.20); LYMPHOCYTES PERCENT AUTO 29 % (21-46); MONOCYTES PERCENT AUTO 10 % (4-13); Mean Corpuscular HGB 32.6 pg (26.0-34.0); Mean Corpuscular HGB Conc 34.4 g/dL (31.5-36.5); Mean Corpuscular Volume 95 fL (80-100); Mean Platelet Volume 8.8 fL (9.1-12.4); NEUTROPHILS ABSOLUTE AUTO 4.42 K/mm3 (1.96-9.15); NEUTROPHILS PERCENT AUTO 55 % (41-73); Platelet Count 364 K/mm3 (150-400); RDW Coefficient Variation 13.3 % (11.7-14.2); RDW Standard Deviation 46.2 fL (35.1-46.3); White Blood Cell Count 8.01 K/mm3 (4.00-11.30)
[2024-11-03 07:53] VITALS: BP 150/85
[2024-11-03 07:55] LABS: Albumin, Blood 2.8 g/dL (3.4-5.0); Anion Gap 12 mmol/L (3-11); Blood Urea Nitrogen 9 mg/dL (8-24); Bun/Creatinine Ratio 15.8 (12.0-20.0); CO2, Blood 21 mmol/L (21-32); Chloride, Blood 117 mmol/L (98-108); Creatinine, Blood 0.57 mg/dL (0.40-1.00); Glomerular Filtration Rate 101 (60-); Glucose, Blood 100 mg/dL (70-99); Magnesium, Blood 1.6 mg/dL (1.6-2.4); Phosphorus, Blood 2.7 mg/dL (2.5-4.9); Potassium, Blood 3.7 mmol/L (3.5-5.5); Sodium, Blood 146 mmol/L (136-145)
[2024-11-03] MEDS ORDERED: Thiamine HCl 100 MG Tab PO SCH (09:00)
[2024-11-03 15:20] VITALS: BP 135/72
--- NOTE | 2024-11-03 19:31 | NUR ---
assumed care at 1200 no significant change in pt mentation today. pt is still have conversations in her head with God and Ricardo and saying she is in charge of gifts for Ricardo. other than that pt is very pleasent and follows all direction, feeds self and is a one person transfer. pt able to make needs known. PG to right upper are patent and has blood return.
[2024-11-03 19:59] VITALS: BP 119/81
[2024-11-04 02:40] VITALS: BP 120/70
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
[2024-11-04 05:48] LABS: BASOPHILS ABSOLUTE AUTO 0.04 K/mm3 (0.00-0.23); BASOPHILS PERCENT AUTO 1 % (0-2); EOSINOPHILS ABSOLUTE AUTO 0.28 K/mm3 (0.00-0.68); EOSINOPHILS PERCENT AUTO 4 % (0-6); Hematocrit 27.8 % (33.0-51.0); Hemoglobin 9.5 g/dL (11.5-16.0); IMMATURE GRAN ABSOLUTE AUTO 0.02 K/mm3 (0.00-0.10); IMMATURE GRAN PERCENT AUTO 0 % (0-1); LYMPHOCYTES ABSOLUTE AUTO 2.21 K/mm3 (0.84-5.20); LYMPHOCYTES PERCENT AUTO 30 % (21-46); MONOCYTES ABSOLUTE AUTO 0.78 K/mm3 (0.16-1.47); MONOCYTES PERCENT AUTO 11 % (4-13); Mean Corpuscular HGB 32.4 pg (26.0-34.0); Mean Corpuscular HGB Conc 34.2 g/dL (31.5-36.5); Mean Corpuscular Volume 95 fL (80-100); Mean Platelet Volume 9.4 fL (9.1-12.4); NEUTROPHILS ABSOLUTE AUTO 4.03 K/mm3 (1.96-9.15); NEUTROPHILS PERCENT AUTO 55 % (41-73); Platelet Count 385 K/mm3 (150-400); RDW Standard Deviation 44.6 fL (35.1-46.3); Red Blood Cell Count 2.93 M/mm3 (3.80-5.20); White Blood Cell Count 7.36 K/mm3 (4.00-11.30)
[2024-11-04 06:27] LABS: Bun/Creatinine Ratio 15.2 (12.0-20.0); Creatinine, Blood 0.59 mg/dL (0.40-1.00); Potassium, Blood 3.4 mmol/L (3.5-5.5)
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
[2024-11-04] MEDS ORDERED: Potassium Chloride 10 Meq Tablet SA PO ONE (07:50)
--- NOTE | 2024-11-04 08:07 | NUR ---
MANJU MENENDEZ- PT INSISTED ON NUNES REMOVAL, IT WAS PLACED IN THE ED FOR RETENTION, THE PT ORIGIONALLY HAD DARK TEA COLORED URINE, PER REPORTS. URINE IS NOW CLEAR AND YELLOW. MANJU MENENDEZ PER MD ORDER.
--- NOTE | 2024-11-04 08:49 | NUR ---
DISCHARGE AMA- PT DRESSED HERSELF PACKED HER BELONGINGS AND SAID SHE IS READY TO LEAVE NOW. CALLED DR KNAPP. PT IS NOT ON ANY KIND OF HOLD, SHE IS UNWILLING TO WAIT TO SEE THE DR TODAY. PG IN [place] WAS DC'D THE PT LEFT. PT WAS AWARE SHE WAS LEAVING AMA, DECLINED TO SIGN THE FORM. REFUSED TO ALLOW STAFF TO CALL FOR A RIDE FOR HER. PT LEFT ON FOOT, NO S&S OF DISTRESS AT THAT TIME. PT MUTTERING ABOUT "SHOWING HERSELF OUT" SINCE SHE "OWNS THE PLACE."
== END 2024-11-04 08:36 | disposition left against medical advice (07) | DRG 871 ==
LOC: ER 09:52 → MEDS 12:52
PROVIDERS: Emergency Medicine; ADMIT Family Medicine
DX: A41.9 Sepsis, unspecified organism (principal); G92.8 Other toxic encephalopathy; N17.9 Acute kidney failure, unspecified; E87.0 Hyperosmolality and hypernatremia; E87.3 Alkalosis; E87.4 Mixed disorder of acid-base balance; E86.0 Dehydration; E87.6 Hypokalemia; E83.39 Other disorders of phosphorus metabolism; M19.90 Unspecified osteoarthritis, unspecified site; E83.42 Hypomagnesemia; Y90.0 Blood alcohol level of less than 20 mg/100 ml; D75.838 Other thrombocytosis; D64.9 Anemia, unspecified; F15.90 Other stimulant use, unspecified, uncomplicated; F11.90 Opioid use, unspecified, uncomplicated; F10.20 Alcohol dependence, uncomplicated; M79.7 Fibromyalgia; Z87.442 Personal history of urinary calculi; Z87.440 Personal history of urinary (tract) infections; Z87.19 Personal history of other diseases of the digestive system; Z90.49 Acquired absence of other specified parts of digestive tract; Z98.890 Other specified postprocedural states; Z87.891 Personal history of nicotine dependence; Z88.1 Allergy status to other antibiotic agents; Z88.8 Allergy status to other drugs, medicaments and biological substances; Z79.899 Other long term (current) drug therapy; Z53.29 Procedure and treatment not carried out because of patient's decision for other reasons; D63.8 Anemia in other chronic diseases classified elsewhere
CPT/HCPCS: 36415; 51702; 80048; 80053; 80069; 80320; 81001; 82140; 82803; 83605; 83690; 83735; 83880; 83930; 84100; 84439; 84443; 84481; 84484; 85025; 85379; 87040; 87077; 87086; 87186; 93005; 93010; 96365-59; 96366-59; 96375-59; 99285-25; A9270; C1751; J0696; J1650; J3475; J3480; J7030; J7050; J7060

== ENCOUNTER 2024-12-15 12:19 | Observation (INO) | payer OTHER ==
[~2024-12-15] VITALS: Ht 162.6 cm; Wt 67.6 kg
[~2024-12-15 12:19] MED LIST changes: -MAGNESIUM OXID500 MG; +MAGNESIUM OXID500 MG PO; -POTA10T; +POTA10T PO
[2024-12-15 13:06] LABS: BASOPHILS ABSOLUTE AUTO 0.04 K/mm3 (0.00-0.23); BASOPHILS PERCENT AUTO 1 % (0-2); EOSINOPHILS PERCENT AUTO 2 % (0-6); Hematocrit 32.5 % (33.0-51.0); Hemoglobin 10.7 g/dL (11.5-16.0); IMMATURE GRAN ABSOLUTE AUTO 0.13 K/mm3 (0.00-0.10); IMMATURE GRAN PERCENT AUTO 2 % (0-1); LYMPHOCYTES ABSOLUTE AUTO 2.41 K/mm3 (0.84-5.20); LYMPHOCYTES PERCENT AUTO 29 % (21-46); MONOCYTES ABSOLUTE AUTO 0.69 K/mm3 (0.16-1.47); MONOCYTES PERCENT AUTO 8 % (4-13); Mean Corpuscular HGB 31.9 pg (26.0-34.0); Mean Corpuscular HGB Conc 32.9 g/dL (31.5-36.5); Mean Corpuscular Volume 97 fL (80-100); Mean Platelet Volume 9.1 fL (9.1-12.4); NEUTROPHILS ABSOLUTE AUTO 4.89 K/mm3 (1.96-9.15); NEUTROPHILS PERCENT AUTO 58 % (41-73); Platelet Count 371 K/mm3 (150-400); RDW Coefficient Variation 12.7 % (11.7-14.2); RDW Standard Deviation 45.2 fL (35.1-46.3); Red Blood Cell Count 3.35 M/mm3 (3.80-5.20); White Blood Cell Count 8.36 K/mm3 (4.00-11.30)
[2024-12-15 13:21] LABS: International Normalized Ratio 1.08; Prothrombin Time Results 11.5 Sec (9.7-11.5)
[2024-12-15 13:29] LABS: Ethanol (Alcohol), Blood, Med <3 mg/dL; Salicylate <1.7 mg/dL (2.8-20.0)
[2024-12-15 13:31] LABS: Alanine Aminotransfer (ALT/SGP 20 U/L (12-78); Albumin, Blood 3.7 g/dL (3.4-5.0); Albumin/Globulin Ratio 1.1 (0.8-1.8); Alk Phos 64 U/L (50-136); Anion Gap 12 mmol/L (3-11); Aspartate Aminotrans (AST/SGOT 38 U/L (12-37); Bilirubin, Total 0.5 mg/dL (0.1-1.0); Blood Urea Nitrogen 14 mg/dL (8-24); Bun/Creatinine Ratio 24.6 (12.0-20.0); CO2, Blood 22 mmol/L (21-32); Calcium, Blood 9.6 mg/dL (8.5-10.1); Chloride, Blood 109 mmol/L (98-108); Creatinine, Blood 0.57 mg/dL (0.40-1.00); Globulin, Blood 3.5 g/dL (2.2-4.0); Glomerular Filtration Rate 101 (60-); Glucose, Blood 87 mg/dL (70-99); Potassium, Blood 3.5 mmol/L (3.5-5.5); Sodium, Blood 139 mmol/L (136-145); Total Protein, Blood 7.2 g/dL (6.4-8.2)
[2024-12-15 13:32] LABS: Acetaminophen, Random <2.0 ug/mL (10.0-30.0)
[2024-12-15] MEDS ORDERED: Acetaminophen 500 MG Tab PO ONE (14:35)
[2024-12-15] MEDS ORDERED: HYDROmorphone HCl/Pf 1MG SYR IV ONE (15:50)
[2024-12-15 16:01] LABS: Source, Urine Clean Catch
[2024-12-15 16:06] LABS: Appearance, Urine Hazy (Clear); Bilirubin, Urine Neg (Neg); Blood, Urine 1+ (Neg); Glucose Qualitative, Urine Neg (Neg); Ketones, Urine 1+ (Neg); Leukocyte Esterase, Urine 3+ (Neg); Nitrite, Urine Pos (Neg); Protein, Urine 1+ (Neg); Urobilinogen, Urine NORM (Normal)
[2024-12-15 16:11] LABS: Color, Urine Pale Yellow (P-Yellow)
[2024-12-15 16:21] LABS: Bacteria Many /hpf; Squamous Epithelial Cells Few /hpf (Few); White Blood Cells, Urine 25-50 /hpf (0-5)
[2024-12-15 16:24] LABS: U Amphetamine Screen DETECTED; U Barbituate Screen Not Detected; U Benzodiazapine Screen DETECTED; U Buprenorphine Screen Not Detected; U Cannabinoids Screen Not Detected; U Cocaine Screen Not Detected; U Methadone Screen Not Detected; U Methamphetamine Screen Not Detected; U Opiates Screen Not Detected; U Oxycodone Screen Not Detected; U Phencyclidine Screen Not Detected
[2024-12-15] MEDS ORDERED: CefTRIAXone Sodium 1,000 MG in NS 100 ML IV ONE (16:25)
[2024-12-15] MEDS ORDERED: Doxycycline Hyclate 100 MG TAB PO ONE (16:45)
[2024-12-15] MEDS ORDERED: MetroNIDAZOLE 500 MG Tab PO ONE (16:45)
[2024-12-15 18:08] LABS: Bacterial Vaginosis PCR Negative (NEGATIVE); Candida Group, PCR NOT DETECTED (NOT DETECT); Candida glabrata-krusei, PCR NOT DETECTED (NOT DETECT)
[2024-12-15 18:39] LABS: Chlamydia Trachomatis Vaginal NOT DETECTED (NOT DETECT); Neisseria Gonorrhoea Vaginal NOT DETECTED (NOT DETECT)
[2024-12-15] MEDS ORDERED: OxyCODONE HCL 5 MG TAB PO PRN (18:50)
[2024-12-15] MEDS ORDERED: Acetaminophen 500 MG Tab PO PRN (18:50)
[2024-12-15] MEDS ORDERED: NS 1,000 ML IV ONE (19:00)
[2024-12-15] MEDS ORDERED: Sennosides 8.6 MG Tab PO SCH (21:00)
[2024-12-16] MEDS ORDERED: NS 250 ML IV PRN (00:25)
[2024-12-16 01:31] VITALS: BP 108/69
[2024-12-16] MEDS ORDERED: HYDROmorphone HCl 2 MG Tab PO ONE (03:55)
[2024-12-16] MEDS ORDERED: MetroNIDAZOLE 500MG/NS 100 ml 100 ML IV SCH (05:00)
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
[2024-12-16] MEDS ORDERED: Fosfomycin Tromethamine 3 GM Packet PO ONE (08:00)
[2024-12-16] MEDS ORDERED: Doxycycline Hyclate 100 MG TAB PO SCH (09:00)
[2024-12-16] MEDS ORDERED: Enoxaparin 40 MG/0.4 ML SYR SC SCH (09:00)
[2024-12-16] MEDS ORDERED: Ondansetron 4 MG TAB PO PRN (10:10)
--- NOTE | 2024-12-16 10:54 | NUR ---
PT TRANSFERRED TO ROOM 349. ALL BELONGINGS SENT WITH PT AND SITTER.
[2024-12-16 15:14] VITALS: BP 133/65
--- NOTE | 2024-12-16 16:42 | NUR ---
PHYSICIAN CONTACT PATIENT REFUSING AN IV. PATIENT EDUCATED THAT SHE CANT RECIEVE THE ANTIBIOTICS WITHOUT AN IV. SHE STATED UNDERSTANDING. SHE SAID "IT IS NOT WORTH IT". PATIENT ALSO STATING TO THIS RN, "MY PAIN IS NOT GOING DOWN AND I NEED DILAUDID." DR. RAMACHANDRAN INFORMED OF ABOVE AND PAIN ISSUES. THIS RN OFFERED PATIENT A HEATING PAD. PATIENT ACCEPTED, BUT WAS SLEEPING WHEN IT WAS BROUGHT TO PATIENT. WILL PLACE ON PATIENT WHEN SHE WAKES UP.
[2024-12-16] MEDS ORDERED: CefTRIAXone Sodium 1,000 MG in NS 100 ML IV SCH (17:00)
--- NOTE | 2024-12-16 18:12 | NUR ---
SHIFT SUMMARY ASSUMED CARE OF PATIENT AT APPROX. 1400. PATIENT ON MD HOLD WITH 1:1 SITTER. PATIENT A&OX1-2. PATIENT HAS TANGENTIAL SPEECH. PATIENT REFUSED IV, SEE PREVIOUS NOTE. THIS RN CONTINUED TO ATTEMPT TO EDUCATE PATIENT ABOUT NEED FOR IV AND IV ABX. PATIENT CONTINUING TO REFUSE. PER REPORT, PATIENT ALSO REFUSED LABS THIS AM. PATIENT MEDICATED FOR PAIN X2 SINCE THIS RN ASSUMED CARE. PATIENT IS EATING AND DRINKING WELL. PATIENT IS IND IN ROOM.
[2024-12-16] MEDS ORDERED: ALPR1 PO (18:40)
[2024-12-16] MEDS ORDERED: CATAPRES0.3 MG PO (18:40)
[2024-12-16] MEDS ORDERED: OMEP20ER PO (18:40)
[2024-12-16] MEDS ORDERED: HYDCHL12.5 PO (18:41)
[2024-12-16] MEDS ORDERED: ADDERALL 10 MG10 MG PO (18:41)
[2024-12-16] MEDS ORDERED: FAMO20 PO (18:41)
[2024-12-16] MEDS ORDERED: VITAMIN D5000 UNIT PO (18:42)
--- NOTE | 2024-12-16 18:43 | NUR ---
UPDATE HOME MEDICATIONS RECONCILLED. THIS RN CALLED PHARMACY LISTED IN PATIENT CHART AND UPDATE HOME MEDS.
[2024-12-16 19:55] VITALS: BP 125/63
[2024-12-17 05:17] VITALS: BP 140/79
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
[2024-12-17 07:35] VITALS: BP 145/77
[2024-12-17] MEDS ORDERED: Amoxicillin/Clavulanate K 875 MG Tab PO SCH (09:00)
[2024-12-17] MEDS ORDERED: HydroCHLOROthiazide 25 mg Tab PO SCH (09:00)
[2024-12-17] MEDS ORDERED: Cholecalciferol 1000 Unit Tablet (=25MCG) PO SCH (09:00)
[2024-12-17] MEDS ORDERED: Omeprazole 20 MG CapCR PO SCH (09:00)
[2024-12-17] MEDS ORDERED: ALPRAZolam 1 MG Tab PO SCH ×2 (09:00→14:00)
[2024-12-17] MEDS ORDERED: Magnesium Oxide 400 MG Tab PO SCH (09:00)
[2024-12-17 09:05] LABS: BASOPHILS ABSOLUTE AUTO 0.07 K/mm3 (0.00-0.23); BASOPHILS PERCENT AUTO 1 % (0-2); EOSINOPHILS ABSOLUTE AUTO 0.29 K/mm3 (0.00-0.68); EOSINOPHILS PERCENT AUTO 4 % (0-6); Hematocrit 34.5 % (33.0-51.0); Hemoglobin 11.5 g/dL (11.5-16.0); IMMATURE GRAN ABSOLUTE AUTO 0.03 K/mm3 (0.00-0.10); IMMATURE GRAN PERCENT AUTO 0 % (0-1); LYMPHOCYTES ABSOLUTE AUTO 1.97 K/mm3 (0.84-5.20); LYMPHOCYTES PERCENT AUTO 24 % (21-46); MONOCYTES ABSOLUTE AUTO 0.82 K/mm3 (0.16-1.47); MONOCYTES PERCENT AUTO 10 % (4-13); Mean Corpuscular HGB 32.1 pg (26.0-34.0); Mean Corpuscular HGB Conc 33.3 g/dL (31.5-36.5); Mean Corpuscular Volume 96 fL (80-100); Mean Platelet Volume 9.2 fL (9.1-12.4); NEUTROPHILS ABSOLUTE AUTO 5.12 K/mm3 (1.96-9.15); NEUTROPHILS PERCENT AUTO 62 % (41-73); Platelet Count 341 K/mm3 (150-400); RDW Coefficient Variation 12.5 % (11.7-14.2); RDW Standard Deviation 44.4 fL (35.1-46.3); Red Blood Cell Count 3.58 M/mm3 (3.80-5.20)
[2024-12-17 09:26] LABS: Albumin, Blood 3.4 g/dL (3.4-5.0); Bilirubin, Total 0.5 mg/dL (0.1-1.0); Bun/Creatinine Ratio 9.8 (12.0-20.0); Calcium, Blood 9.7 mg/dL (8.5-10.1); Creatinine, Blood 0.51 mg/dL (0.40-1.00); Globulin, Blood 3.5 g/dL (2.2-4.0); Potassium, Blood 3.5 mmol/L (3.5-5.5); Total Protein, Blood 6.9 g/dL (6.4-8.2)
[2024-12-17] MEDS ORDERED: OxyCODONE HCL 5 MG TAB PO PRN (09:40)
[2024-12-17] MEDS ORDERED: Polyethylene Glycol 3350 17 gm PO PRN (10:05)
[2024-12-17] MEDS ORDERED: Bisacodyl 10 MG Supp PR PRN (10:05)
[2024-12-17 15:39] VITALS: BP 125/69
--- NOTE | 2024-12-17 16:00 | NUR ---
Patient is lying in bed and alert. She tells me that her "psych meds and pain meds" are not helping with the pain both mentally and physically. She expresses her concerns getting adequate help for her particular struggle. We explore sources of value, meaning and hope. SHe repeatedly refers back to her Hinduism beliefs system but states that "there is only so much God can do." I provided therapeutic listening, theological insights, and prayer. Patient responded well displaying signs of reduced stress. She voiced her appreciation for the spiritual care visit.
--- NOTE | 2024-12-17 17:44 | NUR ---
NO ACUTE CHANGES, BASELING CONFUSION AND FIGHT OF IDEAS, INCREASED XANAX PER PATIENT REQUEST, ORDER FOR NO IV ACCESS IN, 2 MD HOLD, CALL LIGHT WITH IN REACH, 1;1 AT BEDSIDE, CALL LIGHT WITH IN REACH, WILL RELAY TO PM RN
[2024-12-17 19:49] VITALS: BP 110/61
[2024-12-17] MEDS ORDERED: Lactobacil 2-S.Thermo-Bifido 1 1 Cap PO SCH (21:00)
[2024-12-18 03:11] VITALS: BP 117/68
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
[2024-12-18 07:14] LABS: BASOPHILS ABSOLUTE AUTO 0.05 K/mm3 (0.00-0.23); BASOPHILS PERCENT AUTO 1 % (0-2); EOSINOPHILS ABSOLUTE AUTO 0.35 K/mm3 (0.00-0.68); EOSINOPHILS PERCENT AUTO 6 % (0-6); Hematocrit 33.2 % (33.0-51.0); Hemoglobin 11.1 g/dL (11.5-16.0); IMMATURE GRAN ABSOLUTE AUTO 0.03 K/mm3 (0.00-0.10); IMMATURE GRAN PERCENT AUTO 1 % (0-1); LYMPHOCYTES ABSOLUTE AUTO 2.33 K/mm3 (0.84-5.20); LYMPHOCYTES PERCENT AUTO 40 % (21-46); MONOCYTES ABSOLUTE AUTO 1.02 K/mm3 (0.16-1.47); MONOCYTES PERCENT AUTO 17 % (4-13); Mean Corpuscular HGB 32.2 pg (26.0-34.0); Mean Corpuscular HGB Conc 33.4 g/dL (31.5-36.5); Mean Corpuscular Volume 96 fL (80-100); Mean Platelet Volume 9.3 fL (9.1-12.4); NEUTROPHILS ABSOLUTE AUTO 2.08 K/mm3 (1.96-9.15); NEUTROPHILS PERCENT AUTO 35 % (41-73); Platelet Count 337 K/mm3 (150-400); RDW Coefficient Variation 12.8 % (11.7-14.2); RDW Standard Deviation 45.2 fL (35.1-46.3); Red Blood Cell Count 3.45 M/mm3 (3.80-5.20); White Blood Cell Count 5.86 K/mm3 (4.00-11.30)
[2024-12-18 07:29] VITALS: BP 123/64
[2024-12-18 07:41] LABS: Albumin, Blood 3.1 g/dL (3.4-5.0); Albumin/Globulin Ratio 0.9 (0.8-1.8); Bilirubin, Total 0.3 mg/dL (0.1-1.0); Bun/Creatinine Ratio 14.7 (12.0-20.0); Calcium, Blood 9.3 mg/dL (8.5-10.1); Creatinine, Blood 0.61 mg/dL (0.40-1.00); Globulin, Blood 3.4 g/dL (2.2-4.0); Potassium, Blood 3.7 mmol/L (3.5-5.5); Total Protein, Blood 6.5 g/dL (6.4-8.2)
[2024-12-18] MEDS ORDERED: THIAMINE HCL IM ONE (08:15)
[2024-12-18] MEDS ORDERED: ARIPiprazole 10 MG Tab PO SCH (09:00)
[2024-12-18] MEDS ORDERED: Ipratropium/Albuterol SulF 2.5-0.5MG/3 ML Amp INH PRN (10:20)
[2024-12-18] MEDS ORDERED: Albuterol 2.5 MG/3 ML VIAL INH PRN (10:20)
[2024-12-18 15:47] VITALS: BP 109/59
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
[2024-12-19 04:31] VITALS: BP 127/73
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
[2024-12-19 06:22] LABS: BASOPHILS ABSOLUTE AUTO 0.06 K/mm3 (0.00-0.23); BASOPHILS PERCENT AUTO 1 % (0-2); EOSINOPHILS PERCENT AUTO 6 % (0-6); Hemoglobin 10.9 g/dL (11.5-16.0); IMMATURE GRAN ABSOLUTE AUTO 0.02 K/mm3 (0.00-0.10); IMMATURE GRAN PERCENT AUTO 0 % (0-1); LYMPHOCYTES ABSOLUTE AUTO 2.22 K/mm3 (0.84-5.20); LYMPHOCYTES PERCENT AUTO 43 % (21-46); MONOCYTES ABSOLUTE AUTO 0.84 K/mm3 (0.16-1.47); MONOCYTES PERCENT AUTO 16 % (4-13); Mean Corpuscular HGB 31.6 pg (26.0-34.0); Mean Corpuscular Volume 96 fL (80-100); Mean Platelet Volume 9.2 fL (9.1-12.4); NEUTROPHILS ABSOLUTE AUTO 1.75 K/mm3 (1.96-9.15); NEUTROPHILS PERCENT AUTO 34 % (41-73); Platelet Count 326 K/mm3 (150-400); RDW Coefficient Variation 12.6 % (11.7-14.2); RDW Standard Deviation 43.9 fL (35.1-46.3); Red Blood Cell Count 3.45 M/mm3 (3.80-5.20); White Blood Cell Count 5.19 K/mm3 (4.00-11.30)
[2024-12-19 06:54] LABS: Albumin, Blood 3.2 g/dL (3.4-5.0); Albumin/Globulin Ratio 0.9 (0.8-1.8); Bilirubin, Total 0.4 mg/dL (0.1-1.0); Calcium, Blood 9.3 mg/dL (8.5-10.1); Creatinine, Blood 0.48 mg/dL (0.40-1.00); Globulin, Blood 3.5 g/dL (2.2-4.0); Potassium, Blood 3.7 mmol/L (3.5-5.5); Total Protein, Blood 6.7 g/dL (6.4-8.2)
[2024-12-19 07:45] VITALS: BP 135/76
[2024-12-19] MEDS ORDERED: Ferrous Sulfate 325 MG Tab PO SCH (09:00)
[2024-12-19 15:05] VITALS: BP 123/64
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
[2024-12-19 19:57] VITALS: BP 105/53
[2024-12-19] MEDS ORDERED: Amoxicillin/Clavulanate K 875 MG Tab PO SCH (21:00)
[2024-12-20 05:51] VITALS: BP 126/78
[2024-12-20 07:58] VITALS: BP 116/82
--- NOTE | 2024-12-20 08:16 | NUR ---
SHIFT SUMMARY; PATIENT AWAKE MOST OF THE NIGHT, SLEPT IN SHORT INTERVALS. TALKING ALMOST NON-STOP TO SELF IN ROOM. PLEASANT MOST OF THE TIME
[2024-12-20 16:24] VITALS: BP 120/61
--- NOTE | 2024-12-20 18:29 | NUR ---
SHIFT SUMMARY PT CONT LEVEL OF CARE WITH NO ACUTE CHANGES NOTED. PLAN IS AWAITING SAFE DC PLAN PARANOID DELUSIONS CONT.
[2024-12-20 19:58] VITALS: BP 126/67
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
[2024-12-21 05:32] VITALS: BP 127/81
[2024-12-21 07:17] VITALS: BP 133/76
[2024-12-21] MEDS ORDERED: OXAYDO5 M1 PO (13:44)
[2024-12-21] MEDS ORDERED: VISBIOME 112.51 EACH PO (13:45)
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
== END 2024-12-21 15:05 | disposition home or self-care (01) ==
LOC: ER 12:19 → ERHOLD 12:20 → MEDS 12:20
PROVIDERS: Student in an Organized Health Care Education/Training Program; ADMIT Surgery
DX: F23 Brief psychotic disorder (principal); S32.010A Wedge compression fracture of first lumbar vertebra, initial encounter for closed fracture; W13.0XXA Fall from, out of or through balcony, initial encounter; N39.0 Urinary tract infection, site not specified; D64.9 Anemia, unspecified; K59.00 Constipation, unspecified; G92.8 Other toxic encephalopathy; F10.20 Alcohol dependence, uncomplicated; F19.10 Other psychoactive substance abuse, uncomplicated; M79.7 Fibromyalgia; Z87.891 Personal history of nicotine dependence; Z79.899 Other long term (current) drug therapy; Z88.1 Allergy status to other antibiotic agents; Z88.8 Allergy status to other drugs, medicaments and biological substances; Z90.49 Acquired absence of other specified parts of digestive tract
CPT/HCPCS: 36415; 71045; 71250; 72125; 74177; 80053; 80320; 81001; 81515; 82607; 82746; 85025; 85610; 85730; 86592; 87077; 87086; 87186; 87491; 87591; 93005; 93010; 94640; 94664; 94760; 96361; 96365-59; 96367; 96372; 96375; 96376; 97161; 99285-25; A9270; G0378; G0480; J0696; J1171; J1650; J3411; J7030; J7050; Q9967